=== PATIENT | female | born 1990 | race Caucasian/White ===

== ENCOUNTER → 2019-03-09 14:10 | Outpatient (CLI) | payer BC, SELFPAY ==
--- NOTE | 2019-03-09 14:16 | US_ITS ---
US thyroid HISTORY: ITS.REASON: THYROID NODULE ORDERING PHYSICIAN: Eulalia Mckeon APRN PATIENT AGE: 28 years Comparison: None FINDINGS: A 4.2 x 1.1 0.6 cm. The left lobe is 4.1 x 1.2 x 1.4 cm. Isthmus is unremarkable. Homogeneous echogenicity is present in the right lobe without obvious nodule. On the left there is a 4 mm cyst in the upper pole. There is a complex mixed hypo and isoechoic nodule in the lower pole at 13 x 13 mm.. IMPRESSION: 13 mm complex nodule in the lower pole on the left. Recommend 6 month follow-up to confirm stability
== END ==
PROVIDERS: PCP Nurse Practitioner Family; Visit Provider Nurse Practitioner Family
DX: E04.1 Nontoxic single thyroid nodule (principal)
CPT/HCPCS: 76536

== ENCOUNTER 2019-06-21 17:07 | Outpatient (CLI) | payer BC, SELFPAY ==
--- NOTE | 2019-06-21 17:12 | PC.NURSE ---
HERE FOR TB SKIN TEST
[2019-06-21 17:17] VITALS: BMI 40.6
== END 2019-06-21 17:19 | disposition home or self-care (01) ==
LOC: UTC.OUT 17:11
PROVIDERS: PCP Nurse Practitioner; Visit Provider Nurse Practitioner Family
DX: Z23 Encounter for immunization (principal)
CPT/HCPCS: 86580

== ENCOUNTER → 2019-09-13 14:34 | Outpatient (CLI) | payer BC, SELFPAY ==
--- NOTE | 2019-09-13 14:38 | US_ITS ---
PROCEDURE: US THYROID CLINICAL INDICATION: THYROID NODULE Follow-up thyroid nodules COMPARISON: THY US thyroid from 03/09/2019 FINDINGS: Right lobe: 4.0 x 1.4 x 1.6 cm. Homogeneous echogenicity. No discrete nodule Left lobe: 4.7 x 1.1 x 1.5 cm. 5 mm cyst upper pole There are 2 stable mixed nodules in the lower pole 6 mm each. Additional 5 mm mixed nodule lower pole. No suspicious nodules evident Isthmus: Additional findings: IMPRESSION: Stable left-sided thyroid nodules. One year follow-up suggested Dictated by: Corbin Amezcua MD 09/13/2019 16:03 Electronically signed by Corbin Amezcua MD in [place] 09/13/2019 16:03
== END ==
PROVIDERS: PCP Nurse Practitioner; Visit Provider Nurse Practitioner Family
DX: E04.1 Nontoxic single thyroid nodule (principal)
CPT/HCPCS: 76536

== ENCOUNTER → 2020-07-08 08:29 | Outpatient (CLI) | payer SELFPAY ==
[2020-07-09 14:10] LABS: Progesterone <0.1 ng/mL (.)
== END ==
PROVIDERS: Visit Provider Obstetrics & Gynecology
DX: N97.0 Female infertility associated with anovulation (principal)
CPT/HCPCS: 36415; 84144

== ENCOUNTER 2020-11-24 16:24 | Emergency (ER) | payer OTHER, SELFPAY ==
[2020-11-24 17:30] VITALS: BP 156/119; PULSE 90; RESP 20; TEMP 37; O2SAT 100; BMI 44.1
--- NOTE | 2020-11-24 17:46 | HMH.EDUTC ---
[facility] [place]: Vaccine reaction Qualifiers: Encounter type: initial encounter Qualified Code(s): T50.Z95A - Adverse effect of other vaccines and biological substances, initial encounter Disposition: Home, Self-Care Condition on Discharge: Good Instructions: What Are Vaccines? Additional Instructions: if redness develops outside area return follow up with pcp this week watch for fever Apply cool cloth Referrals: Alma Delia Rios APRN [Primary Care Provider] - Time of Disposition: 18:21 Medical Decision Making - Farooq Inquiry Pt receiving controlled substance: No Vital Signs: 11/24/20 17:30 Temperature 98.6 F Temperature Source Oral Pulse Rate [Right Brachial] 90 Respiratory Rate 20 Blood Pressure [Right Arm] 156/119 H Blood Pressure Mean [Right Arm] 131 Blood Pressure Source [Right Arm] Automatic Cuff Blood Pressure Position [Right Arm] Sitting 02 Sat by Pulse Oximetry 100 Oxygen Delivery Method Room Air [facility] [place] - General Chief complaint: Ur[facility] Stated complaint: Contact Reaction to COVID Vaccine Time Seen by Provider: 11/24/20 17:46 Mode of Arrival: Ambulatory Source of Information: Patient Limitations: No Limitations Description of Symptoms (Recalled from Triage Doc. by RN): PATIENT C/O REDNESS, SWELLING, WARMTH AND TENDERNESS TO LEFT DELTOID WHERE SHE RECEIVED COVID VACCINE ON 11/13. DENIES ANY OTHER SYMPTOMS HEENT Symptoms (Recalled from RN notes): No Resp Symptoms (Recalled from RN notes): No Skin Symptoms (Recalled from RN notes): Yes MS Symptoms (Recalled from RN notes): No Functional Status (Recalled from RN notes): WNL - History of Present Illness Provider Complaint: 30 yr old female presents for redness and warmth to covid vaccine injection site. - Related Data Allergies Allergy/AdvReac Type Severity Reaction Status Date / Time codeine [CODEINE] Allergy Unknown Verified 06/20/20 15:34 - Worker's Comp Is this a Worker's Comp case?: No [facility] History - Hepatitis A Screen Drug use history?: No High risk sexual behaviors?: No History of sexually transmitted infection?: No Currently employed?: No Childcare worker?: No Do you have indoor plumbing?: Yes Do you have electricity?: Yes Attestation statement:: This patient has been screened for Hepatitis A risk factors. I have reviewed the patient's past medical history: Yes Medical History: Reports:: Kidney Stones Denies:: Cancer, Diabetes Mellitus Type 1, Diabetes Mellitus Type 2, Hypertension, MRSA Other Medical History: Reports: Other Comment: nodules on thyroid Other Surgeries: Yes: Other Amputation: No Fractures: No Comment: cyst left ovary-2007 - Social History Smoking Status: Never smoker Alcohol Intake: never Alcohol Intake Frequency:: holidays/special occasions only Substance Use Type: denies use Occupational Status: other Family Hx:: Cancer (mom stage 4 breast cancer), Diabetes (father), Thyroid Disorder ROS Obtained: Yes Systems reviewed as appropriate & no additional complaints - Constitutional Constitutional: Reports system reviewed and no additional complaints, except as docu, Denies fever(s) - Eyes Eyes: Reports system reviewed and no additional complaints, except as docu, Denies change in vision - ENT Ears, Nose, Mouth, and Throat: Reports system reviewed and no additional complaints, except as docu, Denies sore throat - Cardiovascular Cardiovascular: Reports system reviewed and no additional complaints, except as docu, Denies chest pain - Respiratory Respiratory: Yes system reviewed and no additional complaints, except as docu, No wheezing - Gastrointestinal Gastrointestingal: Reports: system reviewed and no additional complaints, except as docu. Denies: nausea - Genitourinary Female Genitourinary: Reports system reviewed and no additional complaints, except as docu - Musculoskeletal Musculoskeletal: Reports system reviewed and no additional complaints
[2020-11-24 18:41] VITALS: BP 156/119; PULSE 90; RESP 20; TEMP 37; O2SAT 100
== END 2020-11-24 18:43 | disposition home or self-care (01) ==
PROVIDERS: Emergency Provider Nurse Practitioner Family; PCP Nurse Practitioner
DX: T50.Z95A Adverse effect of other vaccines and biological substances, initial encounter (principal)
CPT/HCPCS: 99202; G0463

== ENCOUNTER → 2021-02-14 13:00 | Outpatient (CLI) | payer OTHER, SELFPAY ==
[2021-02-16 13:12] LABS: Progesterone 1.7 ng/mL (.)
== END ==
PROVIDERS: Visit Provider Specialist
DX: N97.0 Female infertility associated with anovulation (principal)
CPT/HCPCS: 36415; 84144

== ENCOUNTER 2021-02-27 17:10 | Emergency (ER) | payer OTHER, SELFPAY ==
[2021-02-27 17:10] VITALS: BP 140/91; PULSE 91; RESP 19; TEMP 37; O2SAT 100; BMI 44.1
--- NOTE | 2021-02-27 17:43 | HMH.EDUTC ---
[facility] [place]ression: Low back pain Qualifiers: Chronicity: unspecified Back pain laterality: midline Sciatica presence: without sciatica Qualified Code(s): M54.5 - Low back pain Disposition: Home, Self-Care Condition on Discharge: Good Instructions: Low Back Pain, DI for Low Back Pain, Cyclobenzaprine, Etodolac, DI for Muscle Spasm Additional Instructions: *Etodolac lynnette 6 hours with meal as needed for pain/inflammation *Remember you had a Toradol shot in the clinic today, which is similar to Etodolac so do not start Etodalac until tomorrow 02/28/2021 *Not additional anti-inflammatory like Ibuprofen, motrin, aleve, advil with the above amount of Etodolac You can still take Tylenol every 4 hours as needed if you need something else for pain *Ice 20 minutes every 2 hours for the first 48 hours after the initial injury followed by moist heat every 20 minutes 3-4 times a day to affected area *Muscle relaxer every 8 hours as needed for muscle spasms but remember, it WILL cause drowsiness You cannot take it and drive, operate machinery or care for small children. *Keep this area active, no movement leads to more stiffness, However take it easy and avoid heavy lifting pushing or pulling *Follow up with you family doctor if no improvement for further treatment Return if needed Straight to ER if any life threatening symptoms Prescriptions: Etodolac [Etodolac 200mg Cap*] 200 mg PO Q6H PRN #20 cap PRN Reason: Moderate Pain Transmission Status: Received by [id number] Cyclobenzaprine HCl [Flexeril 10mg tablet] 10 mg PO TID PRN #15 tab PRN Reason: Muscle Spasm Transmission Status: Received by [id number] Referrals: Eulalia Mckeon APRN [Primary Care Provider] - As needed Time of Disposition: 18:01 Medical Decision Making - Farooq Inquiry Pt receiving controlled substance: No Farooq was queried for this patient: No Vital Signs: 02/27/21 17:10 02/27/21 18:01 Temperature 98.6 F 98.6 F Temperature Source Oral Pulse Rate 91 H Pulse Rate [Right Brachial] 91 H Respiratory Rate 19 19 Blood Pressure 140/91 H Blood Pressure [Right Arm] 140/91 H Blood Pressure Mean [Right Arm] 107 Blood Pressure Source [Right Arm] Automatic Cuff Blood Pressure Position [Right Arm] Sitting 02 Sat by Pulse Oximetry 100 Oxygen Delivery Method Room Air - Lab Data Lab results reviewed: Yes: I reviewed the patient's lab results. Orders (Tests/Meds): ED MEDICATIONS Discontinued Medications Generic Name Dose Route Start Last Admin Trade Name Romario PRN Reason Stop Dose Admin Ketorolac Tromethamine 60 mg 02/27/21 17:54 02/27/21 18:00 Ketorolac 60mg/2ml Vial IM 02/27/21 17:55 60 mg ONCE ONE Administration Methylprednisolone Sodium Succinate 125 mg 02/27/21 17:54 02/27/21 18:00 Methylprednisolone Sod Succ 125mg Vial IM 02/27/21 17:55 125 mg ONCE ONE Administration Medical Decision Narrative: Patient reports injections helped with pain patient dc'd [place] [facility] [place] - General Stated complaint: back pain Time Seen by Provider: 02/27/21 17:43 Mode of Arrival: Ambulatory Source of Information: Patient Limitations: No Limitations Description of Symptoms (Recalled from Triage Doc. by RN): PATIENT C/O BILATERAL LOWER BACK PAIN THAT RADIATES AROUND TO SIDES SINCE YESTERDAY HEENT Symptoms (Recalled from RN notes): No Resp Symptoms (Recalled from RN notes): No Skin Symptoms (Recalled from RN notes): No MS Symptoms (Recalled from RN notes): Yes Functional Status (Recalled from RN notes): WNL - History of Present Illness Provider Complaint: Patient states that she has back pain on and off States that she was helping her [employer] bathroom and she bent over to help him picker feeder toilet and as she was standing up she felt something pull in her lower back State that ever since she has been having muscle spasm like pain in her lower back that goes across her back State that pain
[2021-02-27 18:01] VITALS: BP 140/91; PULSE 91; RESP 19; TEMP 37; O2SAT 100
[2021-02-27 20:28] LABS: UTC Pregnancy Test, Urine Negative (Negative)
== END 2021-02-27 18:13 | disposition home or self-care (01) ==
PROVIDERS: Emergency Provider Nurse Practitioner; PCP Nurse Practitioner Family
DX: M62.830 Muscle spasm of back (principal); M54.5 Low back pain; X50.0XXA Overexertion from strenuous movement or load, initial encounter; Z88.5 Allergy status to narcotic agent
CPT/HCPCS: 81025; 96372; 99202; G0463

== ENCOUNTER → 2021-04-14 10:05 | Outpatient (CLI) | payer OTHER, SELFPAY ==
[2021-04-17 05:51] LABS: Progesterone 15.8 ng/mL (.)
== END ==
PROVIDERS: Visit Provider Specialist
DX: N97.0 Female infertility associated with anovulation (principal)
CPT/HCPCS: 84144

== ENCOUNTER → 2021-05-13 12:41 | Outpatient (CLI) | payer OTHER, SELFPAY ==
[2021-05-14 09:13] LABS: Progesterone 17.2 ng/mL (.)
== END ==
PROVIDERS: Visit Provider Specialist
DX: N97.0 Female infertility associated with anovulation (principal)
CPT/HCPCS: 36415; 84144

== ENCOUNTER 2021-06-05 15:10 | Observation (INO) | payer OTHER, SELFPAY ==
[2021-06-05 15:12] VITALS: BP 132/67; PULSE 86; RESP 16; TEMP 37; O2SAT 98; BMI 45.4
--- NOTE | 2021-06-05 15:24 | CT_ITS ---
PROCEDURE: CT ABDOMEN PELVIS WO CON CLINICAL INDICATION: kidney stone protocol Left flank pain with hematuria COMPARISON: No exams were available for comparison TECHNIQUE: Axial images obtained with sagittal and coronal reformats. All CT scans at the facility use one or more dose reduction, viz: automated exposure control, ma/kV adjustment per patient size (including targeted exams where dose is matched to indication, i.e. head), or iterative reconstruction technique. FINDINGS: LOWER THORAX: No acute finding ABDOMEN & PELVIS: The liver, gallbladder, spleen, pancreas, and adrenal glands have an unremarkable appearance. A 10 x 5 mm stone is present in the left ureteropelvic junction with mild left-sided hydronephrosis. This could even be 2 small stones together the largest at 5 mm. No distal ureteral calculi are evident. There is a 3 mm stone in the mid polar region of the left kidney. No evidence of appendicitis. Small umbilical hernia containing fat. No intestinal obstruction or free air. There is soft tissue fullness in the right adnexal region suggesting a prominent ovary at approximately 3.9 x 2.9 cm. Small amount fluid is present in the cul-de-sac. No acute bony anomalies IMPRESSION: 10 x 5 mm left ureteropelvic junction stone or stones with mild left-sided hydronephrosis and left nephrolithiasis. Dictated by: Corbin Amezcua MD 06/05/2021 16:14 Corbin Amezcua MD in [place] 06/05/2021 16:14
[2021-06-05 15:27] LABS: Microscopic, Urine URINE MICROSCOPIC (MICROSCOPIC)
[2021-06-05 15:31] LABS: Appearance,Urine TURBID (Clear); Blood, Urine 3+ (Negative); Color,Urine RED (Yellow); Glucose,Urine (UA) Negative (Negative); Ketones,Urine TRACE (Negative); Leukocyte Esterase,Urine TRACE (Negative); Nitrate,Urine POSITIVE (Negative); PH,Urine 6.5 (5.0-8.5); Protein,Urine 3+ (Negative); Specific Gravity, Urine >= 1.030 (1.005-1.030)
[2021-06-05 15:32] LABS: Urine Pregnancy, HCG Qual. Negative (Negative)
[2021-06-05 15:35] LABS: Basophils # 0.1 K/mm3 (0-0.2); Basophils % 0.5 % (0.1-2.0); Eosinophils # 0.1 K/mm3 (0.0-0.4); Eosinophils % 0.9 % (0.1-12.0); Hematocrit 33.3 % (37.0-47.0); Hemoglobin 11.1 g/dL (12.2-16.2); Lymphocytes # 2.1 K/mm3 (0.7-4.5); Mean Corpuscular HGB Conc 33.4 g/dL (31.8-35.4); Mean Corpuscular Volume 71.9 fl (81-99); Mean Platelet Volume 7.8 fl (7.4-10.4); Monocytes # 0.4 K/mm3 (0.1-1.0); Monocytes % 4.4 % (1.7-9.3); Neutrophils # 7.4 K/mm3 (1.8-7.8); Neutrophils % 73.2 % (37.0-80.0); Platelet Count 356 K/mm3 (142-424); Red Blood Count 4.63 M/mm3 (4.20-5.40); Red Cell Distribution Width 16.5 % (11.5-17.5); White Blood Count 10.1 K/mm3 (4.8-10.8)
[2021-06-05 15:38] LABS: Bilirubin,Urine 1+ (Negative)
[2021-06-05 15:42] LABS: Chloride 106 mmol/L (98-107); Potassium 3.6 mmoL/L (3.5-5.1); Sodium 138 mmol/L (136-145)
[2021-06-05 15:45] LABS: Anion Gap 11.6 mEq/L (5-15); Blood Urea Nitrogen 15 mg/dl (7-17); Calcium 8.8 mg/dl (8.4-10.2); Carbon Dioxide 24 mmol/L (22.0-30.0); Creatinine Clearance Estimated 135 mL/min (50-200); Estimated Glomerular Filt Rate 118 ml/min (>60); GFR (African American) 143 ML/MIN (>60); Glucose 100 mg/dl (74-100)
[2021-06-05 15:51] LABS: Bacteria,Urine 1+ /lpf; RBC,Urine 20-50 #/hpf (0-3); Squamous Epithelial Cell,Urine Occasional #/hpf (0-5)
[2021-06-05 16:09] LABS: HCG Qualitative, Serum Negative (Negative)
--- NOTE | 2021-06-05 16:31 | HMH.EDGENADL ---
ED Disposition Clinical Impression: Ureteral stone Disposition: Admitted as Observation Condition on Discharge: Good Instructions: DI for Low Back Pain Referrals: Eulalia Mckeon APRN [Primary Care Provider] - - Critical Care Critical Care Time: No Attestation: On 06/05/21, the high probability of a clinically significant, sudden or life threatening deterioration of the following system(s) required my full and direct attention, intervention and personal management. The time I documented below is in addition to time spent performing reported procedures but includes the following listed in this critical care notation. Medical Decision Making - Medical Records Medical records reviewed: Yes: I reviewed the patient's medical records. - Farooq Inquiry Pt receiving controlled substance: No Vital Signs: 06/05/21 15:12 Temperature 98.6 F Temperature Source Oral Pulse Rate [Radial] 86 Respiratory Rate 16 Blood Pressure [Right Arm] 132/67 Blood Pressure Mean [Right Arm] 88 Blood Pressure Position [Right Arm] Sitting 02 Sat by Pulse Oximetry 98 Oxygen Delivery Method Room Air - Lab Data Lab Results 06/05/21 15:20: Urine Color Red, Urine Appearance Turbid, Urine pH 6.5, Ur Specific [place] >= 1.030, Urine Protein 3+, Urine Glucose (UA) Negative, Urine Ketones Trace, Urine Blood 3+, Urine Nitrate Positive, Urine Bilirubin 1+ A, Urine Urobilinogen 1.0, Ur Leukocyte Esterase Trace, Urine RBC 20-50, Urine WBC None, Ur Squamous Epith Cells Occasional, Urine Bacteria 1+ 06/05/21 15:20: Urine HCG, Qual Negative 06/05/21 15:26: WBC 10.1, RBC 4.63, Hgb 11.1 L, Hct 33.3 L, MCV 71.9 L, MCH 24.0 L, MCHC 33.4, RDW 16.5, Plt Count 356, MPV 7.8, Neut % (Auto) 73.2, Lymph % (Auto) 21.0, [place] % (Auto) 4.4, Eos % (Auto) 0.9, Baso % (Auto) 0.5, Neut # (Auto) 7.4, Lymph # (Auto) 2.1, [place] # (Auto) 0.4, Eos # (Auto) 0.1, Baso # (Auto) 0.1 06/05/21 15:26: Sodium 138, Potassium 3.6, Chloride 106, Carbon Dioxide 24, Anion Gap 11.6, BUN 15, Creatinine 0.60, Estimated Creat Clear 135, Estimated GFR 118, Est GFR ( Amer) 143, Glucose 100, Calcium 8.8 06/05/21 15:26: Serum HCG, Qual Negative Result diagrams: 06/05/21 15:26 06/05/21 15:26 Orders (Tests/Meds): ED MEDICATIONS Generic Name Dose Route Start Last Admin Trade Name Freq PRN Reason Stop Dose Admin Ceftriaxone Sodium 1 gm/ 50 mls @ 100 mls/hr 06/05/21 16:27 Sodium Chloride IV 06/05/21 16:56 ONCE ONE Protocol Discontinued Medications Generic Name Dose Route Start Last Admin Trade Name Freq PRN Reason Stop Dose Admin Sodium Chloride 1,000 mls @ 999 mls/hr 06/05/21 15:30 06/05/21 15:45 Sod Chlor 0.9% 1000ml Bag IV 06/05/21 16:30 999 mls/hr .Q1H1M ANTONIO Administration Ketorolac Tromethamine 30 mg 06/05/21 15:24 06/05/21 15:45 Ketorolac 30mg/Ml Vial IV 06/05/21 15:25 30 mg ONCE ONE Administration Morphine Sulfate 4 mg 06/05/21 16:29 Morphine 4mg/Ml Syringe IV 06/05/21 16:30 ONCE ONE Ondansetron HCl 4 mg 06/05/21 15:24 06/05/21 15:45 Ondansetron 4mg Odt SL 06/05/21 15:25 4 mg ONCE ONE Administration ORDERS Category Date Time Status Urine Culture Stat Micro 06/05/21 16:27 Ordered Medical Decision Narrative: 31-year-old female presents with sudden onset severe left flank pain most consistent with ureter stone. Vital signs stable she did not have acute abdomen on exam no concern for sepsis. CT abdomen pelvis obtained that shows 10 x 5 mm stone at the UPJ. I discussed the case with Dr. Fair and he recommends admission for n.p.o. at midnight. She does have nitrite positive urine, no other symptoms of urinary tract infection urine culture obtained and did give a dose of ceftriaxone. Plan to admit to Dr. Dias. General Adult HPI - General Chief complaint: Back Pain/Injury Stated complaint: Back pain Nausa,vomiting Time Seen by Provider: 06/05/21 15:15 Mode of Arrival: Ambulatory Limita
--- NOTE | 2021-06-05 16:32 | PC.NURSE ---
DR JERONIMO PAGED FOR POSSIBLE ADMISSION
--- NOTE | 2021-06-05 16:46 | PC.NURSE ---
Dr Thapa speaking with Dr Granado.
[2021-06-05 18:00] VITALS: O2SAT 98
[2021-06-05 18:06] LABS: Coronavirus 19, PCR Not Detected (NotDetected); Influenza A, PCR Not Detected (NotDetected); Influenza B, PCR Not Detected (NotDetected)
--- NOTE | 2021-06-05 18:47 | PC.NURSE ---
Report given to Candy by Dillon BUTTS
[2021-06-05 18:58] VITALS: BP 139/112; PULSE 107; RESP 16; TEMP 36.6; O2SAT 99; BMI 46.8
[2021-06-05 19:01] VITALS: RESP 18
[2021-06-05 19:13] VITALS: BP 150/80; PULSE 86; RESP 16; TEMP 36.6; O2SAT 99
[2021-06-05 20:15] VITALS: O2SAT 99
[2021-06-06] VITALS (17 sets, daily range): BP systolic 119–153; BP diastolic 73–92; PULSE 75–93; RESP 14–18; TEMP 36.6–36.9; O2SAT 93–99; BMI 46.9
--- NOTE | 2021-06-06 00:36 | PC.NURSE ---
She is A&Ox3. She has received pain medication for left flank pain that occasionally radiates to her abdomen. Received PRN med for nausea. No vomiting. She is straining her urine. She reports that her urine is dasia colored and cloudy. She is NPO.
--- NOTE | 2021-06-06 07:02 | HMH.HP ---
*Admission Date: 06/05/21 *Chief complaint: Left flank pain *History of present illness: 31-year-old female with history of 2 prior kidney stones presented to the emergency department with acute onset of left flank pain. Patient states she thought she pulled a muscle. Pain was quite severe and unrelenting. Patient was found to have a 10 x 5 mm ureteral stone at the left UVJ showing signs of obstructive uropathy. Patient was admitted for pain control and urologic consultation. This morning she continues to have flank pain and has recently received Toradol. [facility] History I have reviewed the patient's past medical history: Yes Medical History: Reports:: Kidney Stones Denies:: Cancer, Diabetes Mellitus Type 1, Diabetes Mellitus Type 2, Hypertension, MRSA *Have you ever received a pneumonia vaccine?: No *Have you received a flu vaccine this season?: Yes Other Medical History: Reports: Other Other Surgeries: Yes: Other Amputation: No Fractures: No - *Social History Last grade of school completed: Advanced degree Smoking Status: Never smoker Alcohol Intake: current Alcohol Intake Frequency:: holidays/special occasions only Substance Use Type: denies use *Occupational Status:: employed Housing: house Household Members: significant other *Travel in the last 8 weeks: None Family Hx:: Asthma, Cancer, Diabetes, Hyperlipidemia, Hypertension Review of Systems - Review of Systems Review of systems:: pertinent systems reviewed and negative unless documented below - *Neurologic Denies dizziness, Denies headache(s) Meds Home Medications Medication Instructions Recorded Confirmed Type Sertraline HCl [Zoloft] 100 mg PO DAILY 06/05/21 06/05/21 History Allergies Allergy/AdvReac Type Severity Reaction Status Date / Time codeine [CODEINE] Allergy Unknown Verified 05/30/21 11:27 Exam Vital signs and Labs for Last 24 Hours: Temp Pulse Resp BP Pulse Ox 97.9 F 85 18 123/79 99 06/06/21 04:00 06/06/21 04:00 06/06/21 04:00 06/06/21 04:00 06/06/21 04:00 Laboratory Results - last 24 hr 06/05/21 15:20: Urine Color Red, Urine Appearance Turbid, Urine pH 6.5, Ur Specific [place] >= 1.030, Urine Protein 3+, Urine Glucose (UA) Negative, Urine Ketones Trace, Urine Blood 3+, Urine Nitrate Positive, Urine Bilirubin 1+ A, Urine Urobilinogen 1.0, Ur Leukocyte Esterase Trace, Urine RBC 20-50, Urine WBC None, Ur Squamous Epith Cells Occasional, Urine Bacteria 1+ 06/05/21 15:20: Urine HCG, Qual Negative 06/05/21 15:26: WBC 10.1, RBC 4.63, Hgb 11.1 L, Hct 33.3 L, MCV 71.9 L, MCH 24.0 L, MCHC 33.4, RDW 16.5, Plt Count 356, MPV 7.8, Neut % (Auto) 73.2, Lymph % (Auto) 21.0, [place] % (Auto) 4.4, Eos % (Auto) 0.9, Baso % (Auto) 0.5, Neut # (Auto) 7.4, Lymph # (Auto) 2.1, [place] # (Auto) 0.4, Eos # (Auto) 0.1, Baso # (Auto) 0.1 06/05/21 15:26: Sodium 138, Potassium 3.6, Chloride 106, Carbon Dioxide 24, Anion Gap 11.6, BUN 15, Creatinine 0.60, Estimated Creat Clear 135, Estimated GFR 118, Est GFR ( Amer) 143, Glucose 100, Calcium 8.8 06/05/21 15:26: Serum HCG, Qual Negative 06/05/21 16:50: SARS-CoV-2 (PCR) Not detected, Influenza A Untype (PCR) Not detected, Influenza Type B (PCR) Not detected I & O for Last 24 hours: Intake & Output 06/03/21 06/04/21 06/05/21 06/06/21 11:59 11:59 11:59 11:59 Intake Total 808 / 808 Balance 808 / 808 Weight 299 lb 5 oz - Constitutional no acute distress - *Routine HEENT Exam Head: Present: normocephalic Eye: Present: EOMI, PERRL ENT: Present: mucous membranes moist - *Routine Neck Exam Present: supple. Absent: lymphadenopathy - *Routine Respiratory Exam Present: CTA bilaterally - *Routine Cardiovascular Exam Present: RRR - *Routine Abdominal Exam Present: soft, normoactive bowel sounds. Absent: tenderness - *Routine Rectal Exam Rectal:: deferred - *Routine Genitalia Exam Genitalia:: deferred - *Routine Extremities Exam Absent: cyanosis, clubbing, edema - R
[2021-06-06 07:08] LABS: Anion Gap 10.7 mEq/L (5-15); Blood Urea Nitrogen 11 mg/dl (7-17); Calcium 8.4 mg/dl (8.4-10.2); Carbon Dioxide 24 mmol/L (22.0-30.0); Chloride 108 mmol/L (98-107); Creatinine Clearance Estimated 135 mL/min (50-200); Estimated Glomerular Filt Rate 118 ml/min (>60); GFR (African American) 143 ML/MIN (>60); Glucose 90 mg/dl (74-100); Magnesium 1.8 mg/dl (1.6-2.3); Phosphorous 3.3 mg/dl (2.5-4.5); Potassium 3.7 mmoL/L (3.5-5.1); Sodium 139 mmol/L (136-145)
[2021-06-06 07:13] LABS: Basophils % 0.3 % (0.1-2.0); Eosinophils # 0.1 K/mm3 (0.0-0.4); Hematocrit 31.6 % (37.0-47.0); Hemoglobin 10.3 g/dL (12.2-16.2); Lymphocytes # 2.1 K/mm3 (0.7-4.5); Mean Corpuscular HGB Conc 32.6 g/dL (31.8-35.4); Mean Corpuscular Volume 73.5 fl (81-99); Mean Platelet Volume 7.7 fl (7.4-10.4); Monocytes # 0.4 K/mm3 (0.1-1.0); Monocytes % 5.3 % (1.7-9.3); Neutrophils # 5.5 K/mm3 (1.8-7.8); Neutrophils % 67.4 % (37.0-80.0); Platelet Count 339 K/mm3 (142-424); Red Cell Distribution Width 16.9 % (11.5-17.5); White Blood Count 8.1 K/mm3 (4.8-10.8)
--- NOTE | 2021-06-06 07:15 | HMH.PHAVTE ---
[facility] Pharmacy VTE Monitoring - Patient Demographics Admission date: 06/05/21 Report Date: 06/06/21 Time: 07:15 Allergies/Adverse Reactions: Patient Allergies codeine [CODEINE] Allergy (Unknown, Verified 05/30/21 11:27) Height: 1.7 m Weight: 135.766 kg Patient Problems: Current Active Problems Ureteral stone (Acute) Left ureteral stone (Acute) - VTE Risk Labs: VTE Related Lab Results Hgb 10.3 g/dL (12.2-16.2) L 06/06/21 06:07 Hct 31.6 % (37.0-47.0) L 06/06/21 06:07 Plt Count 339 K/mm3 (142-424) 06/06/21 06:07 BUN 11 mg/dl (7-17) D 06/06/21 06:07 Creatinine 0.60 mg/dl (0.52-1.04) 06/06/21 06:07 Estimated Creat Clear 135 mL/min (50-200) 06/06/21 06:07 Was VTE Risk Assessment Performed: Yes VTE Score: 1 VTE Risk Level: Very Low Risk - Prophylaxis VTE Prophylaxis Ordered?: Yes Types of VTE Prophylaxis: TEDS Knee High Location of Applied Device: Bilateral Lower Extremeties
--- NOTE | 2021-06-06 07:16 | HMH.PHAINT ---
MEDICATION RECONCILIATION COMPLETED ON PATIENT USING EXTERNAL FILL HISTORY FROM PHARMACY. -NASIMA SARMIENTO, PARMINDERD
--- NOTE | 2021-06-06 07:44 | XR_ITS ---
PROCEDURE: XR KUB CLINICAL INDICATION: kidney stones COMPARISON: CT CT ABDOMEN PELVIS WO CON from 06/05/2021 FINDINGS: 5 mm calcific density is present in the region of the proximal left ureter/UPJ at the L2-L3 level. A 3 mm stone is present overlying the upper pole of the left kidney. No distal ureteral calculi apparent. IMPRESSION: Suspect persistent 5 mm left UPJ stone with left nephrolithiasis. Dictated by: Corbin Amezcua MD 06/06/2021 08:28 Corbin Amezcua MD in [place] 06/06/2021 08:28
--- NOTE | 2021-06-06 09:20 | HMH.CONS ---
*Admission Date: 06/05/21 *Reason for consult:: 1 cm left UPJ stone *History of present illness: Patient is a 31-year-old white female with a history of nephrolithiasis. She states several days of left-sided discomfort but yesterday began having more flank pain associated with nausea vomiting. She presented to the emergency room where a CT scan revealed a 10 x 5 mm stone at the left UPJ. Her pain was brought under control in the emergency room and she was admitted for observation. She did rather well overnight but began having some more left flank pain this morning. KUB today shows the stone is still at the left UPJ. She is afebrile. [facility] History Medical History: Reports:: Kidney Stones Denies:: Cancer, Diabetes Mellitus Type 1, Diabetes Mellitus Type 2, Hypertension, MRSA *Have you ever received a pneumonia vaccine?: No *Have you received a flu vaccine this season?: Yes Other Medical History: Reports: Other Other Surgeries: Yes: Other Amputation: No Fractures: No - *Social History Last grade of school completed: Advanced degree Smoking Status: Never smoker Alcohol Intake: current Alcohol Intake Frequency:: holidays/special occasions only Substance Use Type: denies use *Occupational Status:: employed Housing: house Household Members: significant other *Travel in the last 8 weeks: None Family Hx:: Asthma, Cancer, Diabetes, Hyperlipidemia, Hypertension Review of Systems - Review of Systems Review of systems:: pertinent systems reviewed and negative unless documented below - *Neurologic Denies dizziness, Denies headache(s) Meds Home Medications Medication Instructions Recorded Confirmed Type Sertraline HCl [Zoloft] 100 mg PO HS 06/05/21 06/06/21 History Allergies Allergy/AdvReac Type Severity Reaction Status Date / Time codeine [CODEINE] Allergy Unknown Verified 05/30/21 11:27 Exam Vital signs and Labs for Last 24 Hours: Temp Pulse Resp BP Pulse Ox 98.2 F 93 H 18 130/86 96 06/06/21 07:49 06/06/21 07:49 06/06/21 07:49 06/06/21 07:49 06/06/21 07:49 Laboratory Results - last 24 hr 06/05/21 15:20: Urine Color Red, Urine Appearance Turbid, Urine pH 6.5, Ur Specific [place] >= 1.030, Urine Protein 3+, Urine Glucose (UA) Negative, Urine Ketones Trace, Urine Blood 3+, Urine Nitrate Positive, Urine Bilirubin 1+ A, Urine Urobilinogen 1.0, Ur Leukocyte Esterase Trace, Urine RBC 20-50, Urine WBC None, Ur Squamous Epith Cells Occasional, Urine Bacteria 1+ 06/05/21 15:20: Urine HCG, Qual Negative 06/05/21 15:26: WBC 10.1, RBC 4.63, Hgb 11.1 L, Hct 33.3 L, MCV 71.9 L, MCH 24.0 L, MCHC 33.4, RDW 16.5, Plt Count 356, MPV 7.8, Neut % (Auto) 73.2, Lymph % (Auto) 21.0, [place] % (Auto) 4.4, Eos % (Auto) 0.9, Baso % (Auto) 0.5, Neut # (Auto) 7.4, Lymph # (Auto) 2.1, [place] # (Auto) 0.4, Eos # (Auto) 0.1, Baso # (Auto) 0.1 06/05/21 15:26: Sodium 138, Potassium 3.6, Chloride 106, Carbon Dioxide 24, Anion Gap 11.6, BUN 15, Creatinine 0.60, Estimated Creat Clear 135, Estimated GFR 118, Est GFR ( Amer) 143, Glucose 100, Calcium 8.8 06/05/21 15:26: Serum HCG, Qual Negative 06/05/21 16:50: SARS-CoV-2 (PCR) Not detected, Influenza A Untype (PCR) Not detected, Influenza Type B (PCR) Not detected 06/06/21 06:07: WBC 8.1, RBC 4.30, Hgb 10.3 L, Hct 31.6 L, MCV 73.5 L, MCH 24.0 L, MCHC 32.6, RDW 16.9, Plt Count 339, MPV 7.7, Neut % (Auto) 67.4, Lymph % (Auto) 26.0, [place] % (Auto) 5.3, Eos % (Auto) 1.0, Baso % (Auto) 0.3, Neut # (Auto) 5.5, Lymph # (Auto) 2.1, [place] # (Auto) 0.4, Eos # (Auto) 0.1, Baso # (Auto) 0.0 06/06/21 06:07: Sodium 139, Potassium 3.7, Chloride 108 H, Carbon Dioxide 24, Anion Gap 10.7, BUN 11 D, Creatinine 0.60, Estimated Creat Clear 135, Estimated GFR 118, Est GFR ( Amer) 143, Glucose 90, Calcium 8.4, Phosphorus 3.3, Magnesium 1.8 I & O for Last 24 hours: Intake & Output 06/03/21 06/04/21 06/05/21 06/06/21 23:59 23:59 23:59 23:59 Intake Total 808 / 808 Balance 808 / 808 Weight 135.766 k
--- NOTE | 2021-06-06 10:30 | XR_ITS ---
PROCEDURE: XR KUB CLINICAL INDICATION: LEFT STENT PLACEMENT, OR COMPARISON: CT CT ABDOMEN PELVIS WO CON from 06/05/2021 FINDINGS: Fluoroscopy time: 1 minutes and 9 seconds. Left ureteral stent is in place with the proximal aspect at the L1-L2 level in the distal aspect not covered on these images. IMPRESSION: Status post left ureteral stent placement with fluoro guidance Dictated by: Corbin Amezcua MD 06/06/2021 14:37 Corbin Amezcua MD in [place] 06/06/2021 14:37
--- NOTE | 2021-06-06 10:38 | HMH.ANESCL ---
[facility] Anesthesia Checklist - Patient Identification Patient Identification: Arm Band - Structural Data Admitted From: Inpatient Planned Operative Procedure/s: Cystoscopy with stent placement Consent for Planned Operative Procedure(s) Verified: Yes - NPO Status Verified Time NPO: 00:00 - Airway Assessment C-Spine Mobility Assessed: Yes TMJ Mobility Assessed: Yes Dentition: Good Dentition - Neurological Assessment Level of Consciousness: Awake Hx Seizures: No Numbness or tingling in extremities: No - Anesthesia Plan Anesthesia Risk discussed: Yes Anesthesia Plan: Verified ASA Class: II Anesthesia Type: General [facility] History I have reviewed the patient's past medical history: Yes Medical History: Reports:: Depression, Kidney Stones Denies:: Cancer, Diabetes Mellitus Type 1, Diabetes Mellitus Type 2, Hypertension, MRSA *Have you ever received a pneumonia vaccine?: No *Have you received a flu vaccine this season?: Yes Other Medical History: Reports: Other Anesthesia experience/problems:: None Other Surgeries: Yes: Other Amputation: No Fractures: No - *Social History Last grade of school completed: Advanced degree Smoking Status: Never smoker Alcohol Intake: current Alcohol Intake Frequency:: holidays/special occasions only Substance Use Type: denies use *Occupational Status:: employed Housing: house Household Members: significant other *Travel in the last 8 weeks: None Family Hx:: Asthma, Cancer, Diabetes, Hyperlipidemia, Hypertension
--- NOTE | 2021-06-06 11:34 | P.PN_ITS ---
[facility] Anesthesia Record Part I Intake, IV Amount: 300 Estimated blood loss (mL): 0 Urine output (mL): 0 Blood Pressure: 119/77 SaO2: 93 Pulse Rate: 79 Respiratory Rate: 14 Temperature: 98.4 F Patient is:: Drowsy, Oral/Nasal airway Stable to PACU at:: 11:34
--- NOTE | 2021-06-06 11:38 | HMH.OPNOTE ---
Date of procedure: 06/06/21 Pre-op Diagnosis:: 1 cm left UPJ stone Post-op Diagnosis:: 1 cm left UPJ stone Procedure performed:: Cystoscopy with left stone manipulation and left stent placement Surgeon:: Favian Fair MD SENIOR INTEGRATION ARCHITECT:: John Garcia Anesthesia: LMA Estimated blood loss (mL): 0 Clinical Note:: 31-year-old white female with a 1 cm left UPJ stone presents for urologic management. Operative findings:: Stone at the left UPJ. It was manipulated proximally left stent placed without difficulty. There was no evidence of pyelonephrosis. Operative note:: Patient taken to the operating room after informed consent was obtained. She was placed on the operating table in the supine position and general anesthesia administered. 1 g of Rocephin was given and sequential compression devices placed. She was then placed into the dorsal lithotomy position and prepped and draped in the standard surgical fashion. The 22 Pedro Luis passed into the urethra and into the bladder without difficulty. The bladder was examined in a systematic fashion. There is no evidence of mucosal abnormalities, stones or diverticula. The ureteral orifices in their normal anatomic position. A 5 [place] ureteral catheter was passed into the left ureteral orifice and under fluoroscopy passed up to the level of the stone. The stone was manipulated proximally without difficulty and a guidewire then passed through the ureteral catheter and the ureteral catheter removed. A 4.8 x 24 [place] stent was then passed over the guidewire. The guidewire was removed and a good curl was noted proximally and distally. The string was left on for later removal. The bladder drained and the scope removed. Urojet placed into the urethra. Patient tolerated procedure well without complication. Condition: stable Disposition: PACU Specimens:: None Complications:: None
--- NOTE | 2021-06-06 16:22 | P.DS_ITS ---
General - General Admission date:: 06/05/21 Discharge date: 06/06/21 HPI HPI: 31-year-old female with history of 2 prior kidney stones presented to the emergency department with acute onset of left flank pain. Patient states she thought she pulled a muscle. Pain was quite severe and unrelenting. Patient was found to have a 10 x 5 mm ureteral stone at the left UVJ showing signs of obstructive uropathy. Patient was admitted for pain control and urologic consultation. This morning she continues to have flank pain and has recently received Toradol. Hospital Course Hospital Course: Patient was admitted for pain control. She was treated with Toradol and morphine to control pain. On June 06 patient underwent urologic evaluation with stone extraction and left ureteral stent placement by Dr. Fair. Patient tolerated well. She was discharged home later in the day on June 06. Patient will follow up with Dr. Fair as an outpatient. Objective Vital signs: Temp Pulse Resp BP Pulse Ox 98.1 F 81 18 132/74 96 06/06/21 12:04 06/06/21 15:45 06/06/21 15:45 06/06/21 15:45 06/06/21 15:45 Results Labs on day of discharge: Labs from last 24 hours 06/06/21 06/06/21 06/05/21 06:07 06:07 16:50 WBC 8.1 RBC 4.30 Hgb 10.3 L Hct 31.6 L MCV 73.5 L MCH 24.0 L MCHC 32.6 RDW 16.9 Plt Count 339 MPV 7.7 Neut % (Auto) 67.4 Lymph % (Auto) 26.0 [place] % (Auto) 5.3 Eos % (Auto) 1.0 Baso % (Auto) 0.3 Neut # (Auto) 5.5 Lymph # (Auto) 2.1 [place] # (Auto) 0.4 Eos # (Auto) 0.1 Baso # (Auto) 0.0 Sodium 139 Potassium 3.7 Chloride 108 H Carbon Dioxide 24 Anion Gap 10.7 BUN 11 D Creatinine 0.60 Estimated Creat Clear 135 Estimated GFR 118 Est GFR ( Amer) 143 Glucose 90 Calcium 8.4 Phosphorus 3.3 Magnesium 1.8 SARS-CoV-2 (PCR) Not detected Influenza A Untype (PCR) Not detected Influenza Type B (PCR) Not detected DS: Diagnosis - Discharge Diagnosis (1) Left ureteral stone Status: Acute Discharge Plan - Patient Discharge Instructions ACTIVITY: Continue current activity DIET: continue same diet Patient Instructions: Kidney Stones -- Adult, DI for Kidney Stones, DI for Surgical Site Infection, Surgical Site Infection - Follow up Plan Follow up with: Favian Fair MD [Staff Physician] - (eswl scheduled for 06/13/21 at 0930) Disposition: Home, Self-Care Condition at discharge:: Improved Home Medications: Home Medications Medication Instructions Recorded Confirmed Type Sertraline HCl [Zoloft] 100 mg PO HS 06/05/21 06/06/21 History Prescriptions/Medication Reconciliation: Continued Sertraline HCl [Zoloft] 100 mg PO HS - Problem Reconciliation Problems Reviewed?: Yes
--- NOTE | 2021-06-06 17:36 | P.PN_ITS ---
[facility] Anesthesia Record Part II Discharge Time: 12:04 Destination: Surgical Day Care (OP Surgery) PACU nurse assessment reviewed?: Yes Patient Condition:: Good Anesthesia Complications:: None Swallowing reflex intact?: Yes Cyanosis?: No Blood Pressure: 136/87 Pulse Rate: 82 Temperature: 98.1 F Mental Status: Alert & Oriented Pain level:: 3 Nausea and/or vomitting:: None Intake, IV Amount: 0
== END 2021-06-06 17:46 | disposition home or self-care (01) ==
LOC: ER 16:34 → 2ND 16:54
PROVIDERS: Urology; Admitting Provider Internal Medicine Adolescent Medicine; Emergency Provider Emergency Medicine; PCP Nurse Practitioner Family; Visit Provider Family Medicine
PROC: (CPT 52330; principal; 2021-06-06 10:30)
DX: N20.1 Calculus of ureter (principal); Z20.822 Contact with and (suspected) exposure to COVID-19
CPT/HCPCS: 52330; 52332; 36415; 74018; 74176; 76000; 80048; 81001; 81025; 83735; 84100; 84703; 85025; 87086; 96365; 96375; 96376; 99284; C2617; G0378; J2405; U0003

== ENCOUNTER → 2021-06-11 12:30 | Outpatient (CLI) | payer OTHER, SELFPAY | PROVIDERS: Visit Provider Urology | DX: Z01.812 Encounter for preprocedural laboratory examination (principal); Z20.822 Contact with and (suspected) exposure to COVID-19; N20.1 Calculus of ureter | CPT/HCPCS: U0003 ==

== ENCOUNTER 2021-06-13 09:21 | Day surgery (SDC) | payer OTHER, SELFPAY ==
[2021-06-10 10:04] VITALS: BMI 45.4
[2021-06-13] VITALS (12 sets, daily range): BP systolic 141–154; BP diastolic 81–97; PULSE 64–84; RESP 14–18; TEMP 36.3–36.8; O2SAT 92–99
--- NOTE | 2021-06-13 10:09 | XR_ITS ---
PROCEDURE: XR KUB CLINICAL INDICATION: preop COMPARISON: CT CT ABDOMEN PELVIS WO CON from 06/05/2021 FINDINGS: Gas pattern-The bowel gas pattern is unremarkable. No obvious obstruction. There is a focal calcific density projecting in the lateral to the left L3 transverse process. This likely corresponds to the proximal ureteric calculus noted on the prior study no significant interval change compared to the prior CT scan allowing for technical differences. No other renal or ureteral calculi. Bones-No acute bony anomalies evident. IMPRESSION: Findings are suggestive of left proximal ureteric calculus, demonstrates no significant interval change compared to the prior CT scan allowing for technical differences. Dictated by: Elham Woods 06/13/2021 10:57 Elham Woods in [place] 06/13/2021 10:57
--- NOTE | 2021-06-13 11:34 | P.PN_ITS ---
[facility] Anesthesia Checklist - Patient Identification Patient Identification: Arm Band - Structural Data Admitted From: Home Planned Operative Procedure/s: ESWL Consent for Planned Operative Procedure(s) Verified: Yes - NPO Status Verified Time NPO: 00:00 - Additional verifications Anesthesia Reactions: No Hx Blood Transfusions: No Blood Transfusion Reaction: No - Airway Assessment C-Spine Mobility Assessed: Yes TMJ Mobility Assessed: Yes Dentition: Good Dentition - Neurological Assessment Level of Consciousness: Awake Hx Seizures: No Numbness or tingling in extremities: No - Anesthesia Plan Anesthesia Risk discussed: Yes Anesthesia Plan: Verified ASA Class: II Anesthesia Type: General [facility] History I have reviewed the patient's past medical history: Yes Medical History: Reports:: Depression, Kidney Stones Denies:: Cancer, Diabetes Mellitus Type 1, Diabetes Mellitus Type 2, Hypertension, Internal Pacemaker, MRSA, Seizures *Have you ever received a pneumonia vaccine?: No *Have you received a flu vaccine this season?: Yes Other Medical History: Reports: Other. Denies: Blood Transfusion Reaction Anesthesia experience/problems:: N/V, tearful Other Surgeries: Yes: Other. No: Pacemaker Amputation: No Fractures: No - *Social History Smoking Status: Never smoker Alcohol Intake: never Alcohol Intake Frequency:: holidays/special occasions only Substance Use Type: denies use *Occupational Status:: employed Housing: house Household Members: significant other *Travel in the last 8 weeks: None - Psychiatric History Pschychiatric History:: Reports:: Depression Family Hx:: No significant family history
--- NOTE | 2021-06-13 14:24 | HMH.ANESI ---
[facility] Anesthesia Record Part I Intake, IV Amount: 700 Estimated blood loss (mL): 0 Urine output (mL): 0 Blood Pressure: 154/91 SaO2: 99 Pulse Rate: 79 Respiratory Rate: 14 Temperature: 98.3 F Patient is:: Drowsy Stable to PACU at:: 14:22
--- NOTE | 2021-06-13 15:21 | HMH.ANESII ---
[facility] Anesthesia Record Part II Discharge Time: 14:52 Destination: Surgical Day Care (OP Surgery) PACU nurse assessment reviewed?: Yes Patient Condition:: Good Anesthesia Complications:: None Swallowing reflex intact?: Yes Cyanosis?: No Blood Pressure: 154/86 Pulse Rate: 74 Temperature: 97.7 F Mental Status: Alert & Oriented Pain level:: 4 Nausea and/or vomitting:: None Intake, IV Amount: 0
--- NOTE | 2021-06-13 15:30 | SUR.PHASEII ---
REPORT GIVEN TO Blanca YOUNG RN FOR TAKE OVER OF CARE.
--- NOTE | 2021-06-13 16:13 | P.OP_ITS ---
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 She has been left renal colic in the 6 mm stone in her proximal left ureter last week. She was taken to the operating room where stone manipulation and left stent placement was performed. Unfortunately the day after the procedure she inadvertently pulled the stent out while in the shower. She has been doing well in the interim and does state some nausea and slight discomfort over the past day or 2. A preoperative KUB reveals that the stone is back in the proximal ureter now. We discussed options including straight ESWL versus replacing the stent or manipulating the stone and due to its small size I recommended we just proceed with ESWL only. Operative findings:: Left proximal ureteral stone Operative note:: Patient taken to the operating room after informed consent was obtained. Was placed on the operating table in the supine position and general anesthesia administered. Preoperative antibiotics and sequential compression devices placed. The lithotripter was focused onto the proximal left ureteral stone and a total of 3500 shockwaves were delivered to the stone with apparent fragmentation. Patient tolerated the procedure well there are no complications. She was transported to recovery when stable condition. Condition: stable Disposition: PACU Specimens:: None Complications:: None
== END 2021-06-13 15:45 | disposition home or self-care (01) ==
LOC: OR 09:22
PROVIDERS: PCP Family Medicine; Visit Provider Urology
PROC: (CPT 50590; principal; 2021-06-13 11:00)
DX: N20.1 Calculus of ureter (principal); Z87.442 Personal history of urinary calculi; F32.9 Major depressive disorder, single episode, unspecified; Z88.6 Allergy status to analgesic agent
CPT/HCPCS: 50590; 74018; 96374; J2405

== ENCOUNTER → 2021-06-24 13:17 | Outpatient (CLI) | payer OTHER, SELFPAY ==
--- NOTE | 2021-06-24 13:20 | XR_ITS ---
PROCEDURE: XR KUB CLINICAL INDICATION: ureteral stone Left flank pain COMPARISON: CT CT ABDOMEN PELVIS WO CON from 06/05/2021 CR XR KUB from 06/13/2021 FINDINGS: Gas pattern-The bowel gas pattern is unremarkable. No obvious obstruction. Calcifications-No abnormal calcifications are evident. No obvious renal or ureteral calculi. Bones-No acute bony anomalies evident. IMPRESSION: No acute findings. Dictated by: Corbin Amezcua MD 06/24/2021 14:56 Corbin Amezcua MD in [place] 06/24/2021 14:56
[2021-07-22 14:22] LABS: Size 4X4 mm; Specimen Type NOT PROVIDED
[2021-07-22 14:23] LABS: Ca oxalate dihydrate 30; Calcium phosphate 5
== END ==
PROVIDERS: PCP Family Medicine; Visit Provider Urology
DX: N20.1 Calculus of ureter (principal); N20.0 Calculus of kidney
CPT/HCPCS: 74018; 82370

== ENCOUNTER 2021-11-09 19:29 | Emergency (ER) | payer OTHER, SELFPAY ==
[2021-11-09 19:39] VITALS: BP 139/97; PULSE 108; RESP 18; TEMP 36.6; O2SAT 100; BMI 44.1
[2021-11-09 19:47] LABS: Coronavirus 19, PCR Not Detected (NotDetected); Influenza A, PCR Not Detected (NotDetected); Influenza B, PCR Not Detected (NotDetected)
[2021-11-09 20:01] LABS: UTC Strep Screen (Rapid) Negative (Negative)
--- NOTE | 2021-11-09 20:04 | HMH.EDUTC ---
[facility] [place] [facility] Disposition Clinical Impression: Acute bronchitis Qualifiers: Bronchitis organism: unspecified organism Qualified Code(s): J20.9 - Acute bronchitis, unspecified Pharyngitis Qualifiers: Pharyngitis/tonsillitis etiology: unspecified etiology Qualified Code(s): J02.9 - Acute pharyngitis, unspecified Disposition: Home, Self-Care Condition on Discharge: Good Instructions: DI for Pharyngitis/Tonsillopharyngitis -- Adult, Sore Throat, DI for Acute Bronchitis Additional Instructions: Drink plenty of fluids. Take tylenol or ibuprofen for pain or fever. Take the medications as directed. Follow up with your regular doctor. GO TO THE ER FOR ANY WORSENING SYMPTOMS Prescriptions: Brompheniramine/Pseudoephed/Dm [Bromfed Dm Cough Syrup] 5 ml PO Q6HP PRN #240 ml PRN Reason: Cough Transmission Status: Pending to [facility] methylPREDNISolone [Medrol] 4 mg PO DIRECTED 6 Days #21 packet Transmission Status: Pending to [facility] Azithromycin [Z-Abhishek 250mg Tab*] 250 mg PO UD DOSE PK #6 tab Transmission Status: Pending to [facility] Referrals: Jose Dias MD [Primary Care Provider] - Forms: Work/School Release Time of Disposition: 21:13 Medical Decision Making - Medical Records Medical records reviewed: No: I reviewed the patient's medical records. - Farooq Inquiry Pt receiving controlled substance: No Vital Signs: 11/09/21 19:39 Temperature 97.8 F Temperature Source Oral Pulse Rate [Left] 108 H Respiratory Rate 18 Blood Pressure [Right Arm] 139/97 H Blood Pressure Mean [Right Arm] 111 02 Sat by Pulse Oximetry 100 - Lab Data Lab results reviewed: Yes: I reviewed the patient's lab results. Lab Results 11/09/21 19:41: Strep Scn Rapid Clinic Negative 11/09/21 19:43: SARS-CoV-2 (PCR) Not detected, Influenza A Untype (PCR) Not detected, Influenza Type B (PCR) Not detected Orders (Tests/Meds): ORDERS Category Date Time Status Strep Screen Confirmation Routine Micro 11/09/21 19:41 Received [facility] [place] HPI - General Stated complaint: cough runny nose congestion headache Time Seen by Provider: 11/09/21 20:04 Mode of Arrival: Ambulatory Source of Information: Patient Limitations: No Limitations Description of Symptoms (Recalled from Triage Doc. by RN): pt c/o a cough, sore throat, congestion and CEJA. x4 days. HEENT Symptoms (Recalled from RN notes): Yes (sore throat, congestion and CEJA) Resp Symptoms (Recalled from RN notes): Yes (cough) Skin Symptoms (Recalled from RN notes): No MS Symptoms (Recalled from RN notes): No Functional Status (Recalled from RN notes): wnl - History of Present Illness Provider Complaint: She states that for the past 1 day she has been feeling bad, coughing, and having chest congestion. She was having a very runny nose yesterday before her symptoms began. She denies any fever or chills. She has been fully vaccinated against covid-19. - Related Data Home Medications Medication Instructions Recorded Confirmed docosahexaenoic acid 200 mg capsule mg PO 06/26/21 10/27/21 letrozole 2.5 mg tablet 2.5 mg PO DAILY 06/26/21 10/27/21 Previous Rx's Medication Instructions Recorded sertraline 100 mg tablet 100 mg PO HS #30 tab 10/27/21 Azithromycin [Z-Abhishek 250mg Tab*] 250 mg PO UD DOSE PK #6 tab 11/09/21 Brompheniramine/Pseudoephed/Dm 5 ml PO Q6HP PRN #240 ml 11/09/21 [Bromfed Dm Cough Syrup] methylPREDNISolone [Medrol] 4 mg PO DIRECTED 6 Days #21 11/09/21 packet Allergies Allergy/AdvReac Type Severity Reaction Status Date / Time codeine [CODEINE] Allergy Unknown Verified 10/27/21 13:01 - Worker's Comp Is this a Worker's Comp case?: No [facility] History - Hepatitis A Screen Drug use history?: No High risk sexual behaviors?: No History of sexually transmitted infection?: No Currently employed?: No Childcare worker?: No Do you have indoor plumbing?: Yes Do you have electricity?: Yes Attestation statement::
[2021-11-09 21:22] LABS: Adenovirus,PCR Not Detected (NotDetected); Bordetella Pertussis Not Detected (NotDetected); Chlamydophila Pneumoniae, PCR Not Detected (NotDetected); Coronavirus 19, PCR Not Detected (NotDetected); Coronavirus 229E Not Detected (NotDetected); Coronavirus NL63 Not Detected (NotDetected); Coronavirus OC43 Not Detected (NotDetected); Coronovirus HKU1,PCR Not Detected (NotDetected); Influenza A, PCR Not Detected (NotDetected); Influenza AH1, 2009 Not Detected (NotDetected); Influenza AH1, PCR Not Detected (NotDetected); Influenza AH3,PCR Not Detected (NotDetected); Influenza B, PCR Not Detected (NotDetected); Mycoplasma Pneumoniae, PCR Not Detected (NotDetected); Parainfluenza 1, PCR Not Detected (NotDetected); Parainfluenza 2, PCR Not Detected (NotDetected); Parainfluenza 3, PCR Not Detected (NotDetected); Parainfluenza 4, PCR Not Detected (NotDetected); Respiratory Syncytial Virus Not Detected (NotDetected); Rhinovirus/Enterovirus Not Detected (NotDetected)
[2021-11-09 21:25] VITALS: BP 139/97; PULSE 108; RESP 18; TEMP 36.6
[2021-11-09 23:27] LABS: Human Metapneumovirus Detected (NotDetected)
== END 2021-11-09 21:27 | disposition home or self-care (01) ==
PROVIDERS: Emergency Provider Nurse Practitioner Family; PCP Family Medicine
DX: J20.9 Acute bronchitis, unspecified (principal); J02.9 Acute pharyngitis, unspecified; F33.1 Major depressive disorder, recurrent, moderate
CPT/HCPCS: 87581; 87632; 87798; 87880; 99203; C9803; G0463; U0003; U0005

== ENCOUNTER → 2022-01-09 09:58 | Outpatient (CLI) | payer OTHER, SELFPAY ==
[2022-01-09 10:14] LABS: Basophils % 0.5 % (0.1-2.0); Eosinophils # 0.1 K/mm3 (0.0-0.4); Eosinophils % 0.9 % (0.1-12.0); Hematocrit 35.6 % (37.0-47.0); Hemoglobin 11.5 g/dL (12.2-16.2); Lymphocytes # 1.9 K/mm3 (0.7-4.5); Lymphocytes % 23.1 % (10-50); Mean Corpuscular HGB Conc 32.3 g/dL (31.8-35.4); Mean Corpuscular Hemoglobin 25.7 pg (27.0-31.2); Mean Corpuscular Volume 79.6 fl (81-99); Mean Platelet Volume 7.6 fl (7.4-10.4); Monocytes # 0.3 K/mm3 (0.1-1.0); Monocytes % 4.1 % (1.7-9.3); Neutrophils # 5.8 K/mm3 (1.8-7.8); Neutrophils % 71.4 % (37.0-80.0); Platelet Count 335 K/mm3 (142-424); Red Blood Count 4.47 M/mm3 (4.20-5.40); Red Cell Distribution Width 15.5 % (11.5-17.5); White Blood Count 8.1 K/mm3 (4.8-10.8)
[2022-01-09 10:57] LABS: Hemoglobin A1C 5.2 % (4.0-6.0)
[2022-01-09 11:00] LABS: Chloride 106 mmol/L (98-107); Sodium 135 mmol/L (136-145)
[2022-01-09 11:03] LABS: Alanine Aminotransferase 21 U/L (12-78); Albumin Level 3.9 g/dl (3.5-5.0); Albumin/Globulin Ratio 1.4 (1.1-1.8); Alkaline Phosphatase 94 U/L (38-126); Aspartate Amino Transferase 24 U/L (14-36); Bilirubin,Total 0.2 mg/dl (0.2-1.3); Blood Urea Nitrogen 12 mg/dl (7-17); Carbon Dioxide 24 mmol/L (22.0-30.0); Estimated Glomerular Filt Rate 118 ml/min (>60); GFR (African American) 143 ML/MIN (>60); Globulin 2.8 g/dL (1.3-3.2); Total Protein,Serum 6.7 g/dl (6.3-8.2)
[2022-01-09 11:04] LABS: Calcium 8.5 mg/dl (8.4-10.2); Glucose 98 mg/dl (74-100)
[2022-01-09 11:20] LABS: Triiodothryronine (T3) Uptake 31 % (23.5-40.5)
[2022-01-09 11:21] LABS: Free Thyroxine Index 3.1 ug/dL (5.93-13.13)
[2022-01-09 11:35] LABS: Thyroid Stimulating Hormone 1.62 uIU/mL (0.465-4.68)
[2022-01-09 12:16] LABS: Vitamin B12 718 pg/mL (239-931)
== END ==
PROVIDERS: Visit Provider Nurse Practitioner Family
DX: I10 Essential (primary) hypertension (principal); E28.2 Polycystic ovarian syndrome; E04.1 Nontoxic single thyroid nodule; G43.909 Migraine, unspecified, not intractable, without status migrainosus; K21.9 Gastro-esophageal reflux disease without esophagitis
CPT/HCPCS: 36415; 80053; 82607; 83036; 84436; 84443; 84479; 85025

== ENCOUNTER → 2022-01-15 12:47 | Outpatient (CLI) | payer OTHER, SELFPAY ==
--- NOTE | 2022-01-15 12:50 | US_ITS ---
FINAL REPORT CLINICAL HISTORY: THYROID NODULE COMPARISON: 09/13/2019 FINDINGS: Sonographic images of the thyroid were obtained. The right lobe of the thyroid measures 1.1 x 3.6 x 2.0 cm. The left lobe of the thyroid measures 1.3 x 4.5 x 1.6 cm. The isthmus measures 2 mm. There are multiple, hypoechoic nodules in the left lobe of the thyroid. There is a solitary nodule in the right lobe. All measure less than 1 cm in greatest dimension. Findings are consistent with TI-RADS Category 4. IMPRESSION: Multiple bilateral thyroid nodules consistent with TI-RADS Category 4. No follow-up is required based on size. Reviewed, Interpreted and Dictated by Chente Hernandez MD Transcribed by Nora Vieyra Authenticated by Chente Hernandez MD on 01/15/2022 03:58:58 PM [facility]
== END ==
PROVIDERS: PCP Family Medicine; Visit Provider Nurse Practitioner Family
DX: E04.1 Nontoxic single thyroid nodule (principal)
CPT/HCPCS: 76536

== ENCOUNTER 2022-05-02 18:01 | Emergency (ER) | payer OTHER, SELFPAY ==
[2022-05-02 18:15] VITALS: BMI 45.6
[2022-05-02 18:25] LABS: Microscopic, Urine URINE MICROSCOPIC (MICROSCOPIC)
[2022-05-02 18:35] LABS: Basophils # 0.2 K/mm3 (0-0.2); Basophils % 1.6 % (0.1-2.0); Eosinophils # 0.2 K/mm3 (0.0-0.4); Eosinophils % 1.9 % (0.1-12.0); Hemoglobin 12.4 g/dL (12.2-16.2); Lymphocytes # 2.3 K/mm3 (0.7-4.5); Lymphocytes % 24.3 % (10-50); Mean Corpuscular HGB Conc 33.7 g/dL (31.8-35.4); Mean Corpuscular Hemoglobin 26.9 pg (27.0-31.2); Mean Platelet Volume 8.1 fl (7.4-10.4); Monocytes # 0.5 K/mm3 (0.1-1.0); Monocytes % 5.1 % (1.7-9.3); Neutrophils # 6.4 K/mm3 (1.8-7.8); Neutrophils % 67.1 % (37.0-80.0); Platelet Count 380 K/mm3 (142-424); Red Blood Count 4.62 M/mm3 (4.20-5.40); Red Cell Distribution Width 15.9 % (11.5-17.5); White Blood Count 9.5 K/mm3 (4.8-10.8)
[2022-05-02 18:37] LABS: Chloride 108 mmol/L (98-107); Potassium 3.9 mmoL/L (3.5-5.1); Sodium 139 mmol/L (136-145)
--- NOTE | 2022-05-02 18:37 | CT_ITS ---
PROCEDURE INFORMATION: Exam: CT Abdomen And Pelvis Without Contrast Exam date and time: 05/02/22 06:51 PM Age: 32 years old Clinical indication: Nausea and vomiting; Abdominal pain; Generalized; Additional info: Abd pain TECHNIQUE: Imaging protocol: Computed tomography of the abdomen and pelvis without contrast. Radiation optimization: All CT scans at this facility use at least one of these dose optimization techniques: automated exposure control; mA and/or kV adjustment per patient size (includes targeted exams where dose is matched to clinical indication); or iterative reconstruction. COMPARISON: CT ABDOMEN PELVIS WO CON 06/05/21 03:58 PM FINDINGS: Tubes, catheters and devices: None noted. Lungs: Lung bases appear clear. Heart: No significant coronary calcifications. No cardiomegaly. No significant pericardial effusion. Liver: Normal. No mass. Gallbladder and bile ducts: Normal. No calcified stones. No ductal dilation. Pancreas: Normal. No ductal dilation. Spleen: Normal. No splenomegaly. Adrenal glands: Normal. No mass. Kidneys and ureters: Punctate nonobstructive calcification left ventral midpole calyx. No hydronephrosis. Stomach and bowel: Unremarkable. No obstruction. No mucosal thickening. Appendix: No evidence of appendicitis. Intraperitoneal space: Unremarkable. No free air. No significant fluid collection. Retroperitoneal space: No significant retroperitoneal inflammatory changes are noted. Vasculature: Unremarkable. No abdominal aortic aneurysm. Lymph nodes: Unremarkable. No enlarged lymph nodes. Urinary bladder: Unremarkable as visualized. Reproductive: Unremarkable as visualized. Bones/joints: Unremarkable. No acute fracture. Soft tissues: Unremarkable. IMPRESSION: 1. No acute findings. 2. Punctate nonobstructive calcification left ventral midpole calyx.
[2022-05-02 18:39] VITALS: BP 155/83; PULSE 108; RESP 17; TEMP 36.8; O2SAT 99; BMI 45.6
[2022-05-02 18:40] LABS: Alanine Aminotransferase 26 U/L (12-78); Albumin/Globulin Ratio 1.3 (1.1-1.8); Alkaline Phosphatase 94 U/L (38-126); Anion Gap 10.9 mEq/L (5-15); Aspartate Amino Transferase 28 U/L (14-36); Bilirubin,Total 0.2 mg/dl (0.2-1.3); Blood Urea Nitrogen 10 mg/dl (7-17); Calcium 9.1 mg/dl (8.4-10.2); Carbon Dioxide 24 mmol/L (22.0-30.0); Creatinine Clearance Estimated 119 mL/min (50-200); Estimated Glomerular Filt Rate 98 ml/min (>60); GFR (African American) 119 ML/MIN (>60); Globulin 3.2 g/dL (1.3-3.2); Glucose 124 mg/dl (74-100); Lipase 100 U/L (23-300); Total Protein,Serum 7.2 g/dl (6.3-8.2)
--- NOTE | 2022-05-02 18:46 | ECG_ITS ---
APPROVED REPORT Exam: Resting ECG HR:89 bpm ECG Measurements Heart Rate 89 AXES VA 137 P 23 QRSd 94 QRS 29 QT 359 T 16 QTc 406 Conclusion SINUS RHYTHM LOW QRS VOLTAGE IN PRECORDIAL LEADS [QRS DEFLECTION < 1.0 mV IN CHEST LEADS] BORDERLINE ECG UNCONFIRMED REPORT Electronically signed by : Jose Andrews MD 05/05/2022 22:21:26
[2022-05-02 18:48] LABS: Urine Pregnancy, HCG Qual. Negative (Negative)
[2022-05-02 19:15] LABS: Appearance,Urine CLEAR (Clear); Bilirubin,Urine Negative (Negative); Blood, Urine Negative (Negative); Color,Urine YELLOW (Yellow); Glucose,Urine (UA) Negative (Negative); Ketones,Urine Negative (Negative); Leukocyte Esterase,Urine Negative (Negative); Nitrate,Urine POSITIVE (Negative); Protein,Urine Negative (Negative); Specific Gravity, Urine >= 1.030 (1.005-1.030); Urobilinogen,Urine 0.2 EU/dl (0.2)
[2022-05-02 19:23] LABS: Bacteria,Urine 1+ /lpf; RBC,Urine Occasional #/hpf (0-3)
--- NOTE | 2022-05-02 19:44 | HMH.EDGENADL ---
ED Disposition Clinical Impression: Epigastric pain Gastroesophageal reflux disease Qualifiers: Esophagitis presence: with esophagitis Esophagitis bleeding: without hemorrhage Qualified Code(s): K21.00 - Gastro-esophageal reflux disease with esophagitis, without bleeding Nausea and vomiting Qualifiers: Vomiting type: unspecified Qualified Code(s): R11.2 - Nausea with vomiting, unspecified Disposition: Home, Self-Care Condition on Discharge: Good Instructions: DI for Gastroesophageal Reflux Disease (GERD), DI for Atypical Chest Pain, DI for Acute Abdominal Pain, DI for Vomiting -- Adult Additional Instructions: Protonix as prescribed for 2 weeks instead of famotidine. Zofran or Phenergan as needed for nausea and vomiting. Follow-up with primary care provider for further care. Prescriptions: Pantoprazole Sodium [Protonix 40mg tablet] 40 mg PO DAILY #15 tab Transmission Status: Pending to [id number] Referrals: Vira Goddard APRN [Primary Care Provider] - - Critical Care Critical Care Time: No Attestation: On 05/02/22, the high probability of a clinically significant, sudden or life threatening deterioration of the following system(s) required my full and direct attention, intervention and personal management. The time I documented below is in addition to time spent performing reported procedures but includes the following listed in this critical care notation. Medical Decision Making - Farooq Inquiry Pt receiving controlled substance: No Vital Signs: 05/02/22 18:39 Temperature 98.3 F Temperature Source Oral Pulse Rate [Left Radial] 108 H Respiratory Rate 17 Blood Pressure [Right Arm] 155/83 H Blood Pressure Mean [Right Arm] 107 02 Sat by Pulse Oximetry 99 Oxygen Delivery Method Room Air - Lab Data Lab Results 05/02/22 18:10: Urine Color Yellow, Urine Appearance Clear, Urine pH 6.0, Ur Specific Mccormick >= 1.030, Urine Protein Negative, Urine Glucose (UA) Negative, Urine Ketones Negative, Urine Blood Negative, Urine Nitrate Positive, Urine Bilirubin Negative, Urine Urobilinogen 0.2, Ur Leukocyte Esterase Negative, Urine RBC Occasional, Urine WBC 3-5, Ur Squamous Epith Cells 10-20, Urine Bacteria 1+ 05/02/22 18:10: Urine HCG, Qual Negative 05/02/22 18:15: WBC 9.5, RBC 4.62, Hgb 12.4, Hct 37.0, MCV 80.0 L, MCH 26.9 L, MCHC 33.7, RDW 15.9, Plt Count 380, MPV 8.1, Neut % (Auto) 67.1, Lymph % (Auto) 24.3, [place] % (Auto) 5.1, Eos % (Auto) 1.9, Baso % (Auto) 1.6, Neut # (Auto) 6.4, Lymph # (Auto) 2.3, [place] # (Auto) 0.5, Eos # (Auto) 0.2, Baso # (Auto) 0.2 05/02/22 18:15: Sodium 139, Potassium 3.9, Chloride 108 H, Carbon Dioxide 24, Anion Gap 10.9, BUN 10, Creatinine 0.70, Estimated Creat Clear 119, Estimated GFR 98, Est GFR ( Amer) 119, Glucose 124 H, Calcium 9.1, Total Bilirubin 0.2, AST 28, ALT 26, Alkaline Phosphatase 94, Total Protein 7.2, Albumin 4.0, Globulin 3.2, Albumin/Globulin Ratio 1.3, Lipase 100 05/02/22 18:15: Troponin I < 0.01 Result diagrams: 05/02/22 18:15 05/02/22 18:15 Orders (Tests/Meds): ED MEDICATIONS Generic Name Dose Route Start Last Admin Trade Name Freq PRN Reason Stop Dose Admin Sodium Chloride 1,000 mls @ 999 mls/hr 05/02/22 18:30 05/02/22 18:39 Sod Chlor 0.9% 1000ml Bag IV 05/02/22 19:30 999 mls/hr .Q1H1M ANTONIO Administration Sodium Chloride 10 ml 05/02/22 18:16 Sodium Chloride 0.9% 10ml Flush Syringe IV 06/01/22 18:15 NEEDED PRN Maintain IV Site Sodium Chloride 10 ml 05/02/22 20:01 Sodium Chloride 0.9% 10ml Vial IV 06/01/22 20:00 NEEDED PRN dilute protonix Discontinued Medications Generic Name Dose Route Start Last Admin Trade Name Freq PRN Reason Stop Dose Admin Belladonna Alkaloids 60 ml 05/02/22 20:01 05/02/22 20:04 Gi Cocktail 60ml Udc PO 05/02/22 20:02 60 ml ONCE ONE Administration Metoclopramide HCl 10 mg 05/02/22 20:00 05/02/22 20:04 Metoclopramide Hcl 10mg/2ml Vi
[2022-05-02 20:09] LABS: Troponin I < 0.01 ng/ml (0.00-0.034)
[2022-05-02 20:39] VITALS: BP 138/80; PULSE 88; RESP 20; TEMP 36.8; O2SAT 99
== END 2022-05-02 21:08 | disposition home or self-care (01) ==
PROVIDERS: Emergency Provider Emergency Medicine; PCP Nurse Practitioner Family
DX: K21.00 Gastro-esophageal reflux disease with esophagitis, without bleeding (principal); R11.2 Nausea with vomiting, unspecified; R07.9 Chest pain, unspecified; R06.02 Shortness of breath; F32.A Depression, unspecified; E04.1 Nontoxic single thyroid nodule; Z87.442 Personal history of urinary calculi; Z79.899 Other long term (current) drug therapy; Z88.5 Allergy status to narcotic agent; Z80.9 Family history of malignant neoplasm, unspecified
CPT/HCPCS: 74176; 80053; 81001; 81025; 83690; 84484; 85025; 93005; 96361; 96374; 96375; 99285; J2405

== ENCOUNTER → 2022-05-22 07:51 | Outpatient (CLI) | payer OTHER, SELFPAY ==
--- NOTE | 2022-05-22 07:54 | FL_ITS ---
FINAL REPORT CLINICAL HISTORY: IBS W/ALTERNATING BOWEL HABITS FINDINGS: UPPER GI EXAM HISTORY: . Epigastric pain. Gastroesophageal reflux. PROCEDURE: The patient ingested barium. Effervescent crystals were also administered. Spot and overhead films were obtained. FINDINGS: The esophagus is normal. There is a small sliding-type hiatal hernia. There was gastroesophageal reflux demonstrated to the midesophagus. Peristalsis is normal. The rugal fold pattern of the stomach is normal. The duodenal bulb is normal. A 13 mm barium tablet passes through the esophagus and into the stomach without delay. FLUOROSCOPY TIME: 1.2 minutes. 16 radiographs were obtained IMPRESSION: Small sliding-type hiatal hernia with gastroesophageal reflux. Films reviewed , interpreted and dictated by Dr. Sidhu. Transcribed by Xavier Mayfield PA-C. Reviewed, Interpreted and Dictated by Quinton Sidhu III, MD Transcribed by IVA Lee Authenticated and [facility]
== END ==
PROVIDERS: PCP Nurse Practitioner Family; Visit Provider Nurse Practitioner Family
DX: K58.2 Mixed irritable bowel syndrome (principal)
CPT/HCPCS: 74246

== ENCOUNTER → 2022-06-01 13:16 | Outpatient (CLI) | payer OTHER, SELFPAY ==
[2022-06-01 14:28] LABS: HCG Qualitative, Serum Negative (Negative)
== END ==
PROVIDERS: PCP Nurse Practitioner Family; Visit Provider Internal Medicine
DX: Z01.818 Encounter for other preprocedural examination (principal); Z20.822 Contact with and (suspected) exposure to COVID-19; Z13.810 Encounter for screening for upper gastrointestinal disorder
CPT/HCPCS: 36415; 84703; C9803; U0003; U0005

== ENCOUNTER 2022-06-03 11:06 | Day surgery (SDC) | payer OTHER, SELFPAY ==
--- NOTE | 2022-06-03 11:12 | P.PN_ITS ---
[facility] Anesthesia Checklist - Patient Identification Patient Identification: Arm Band, Verbal (Name & ) - Structural Data Admitted From: Home Planned Operative Procedure/s: EGD Consent for Planned Operative Procedure(s) Verified: Yes Verified Documents: Surgical Consent - NPO Status Verified Time NPO: 00:00 - Additional verifications Anesthesia Reactions: No Hx Blood Transfusions: No Blood Transfusion Reaction: No - Airway Assessment C-Spine Mobility Assessed: Yes TMJ Mobility Assessed: Yes Dentition: Good Dentition - Neurological Assessment Level of Consciousness: Awake, Alert, Appropriate - Anesthesia Plan Anesthesia Risk discussed: Yes ASA Class: II Anesthesia Type: MAC [facility] History I have reviewed the patient's past medical history: Yes Medical History: Reports:: Depression, Kidney Stones Denies:: Cancer, Diabetes Mellitus Type 1, Diabetes Mellitus Type 2, Hypertension, Internal Pacemaker, MRSA, Seizures *Have you ever received a pneumonia vaccine?: No *Have you received a flu vaccine this season?: Yes Other Medical History: Reports: Other. Denies: Blood Transfusion Reaction Anesthesia experience/problems:: none Other Surgeries: Yes: Other. No: Pacemaker Amputation: No Fractures: No - *Social History Smoking Status: Never smoker Alcohol Intake: never Alcohol Intake Frequency:: holidays/special occasions only Substance Use Type: denies use *Occupational Status:: employed Housing: house Household Members: significant other *Travel in the last 8 weeks: None - Psychiatric History Pschychiatric History:: Reports:: Depression Family Hx:: No significant family history, Cancer
[2022-06-03 11:17] VITALS: BP 121/69; PULSE 91; RESP 16; TEMP 36.8; O2SAT 97; BMI 41.0
--- NOTE | 2022-06-03 11:57 | HMH.SCOPE ---
- Procedure: Date: 06/03/22 Patient Date of :: 1990 Procedure Performed:: EGD Indications:: The patient is a 32 year old who presents today for EGD evaluation of epigastric abdominal pain and nausea. She has had vomiting and regurgitations of partially digested foods towards the evening. A recent CT abdomen was unremarkable. An upper GI barium study showed a small hiatal hernia. Performing Provider:: Prasanna Aguilera MD Referring Provider:: Flori Goddard APRN Sedation:: See RN records Procedure:: The gastroscope was gently passed through the incisoral orifice into the oral cavity and under direct visualization the esophagus was intubated. The endoscope was passed down the esophagus, through the stomach, and into the duodenum. Color, texture, mucosa, and anatomy of the esophagus, stomach, and duodenum were carefully examined with the scope. Findings:: Oropharynx: normal Esophagus:Mild distal esophagitis (LA Class A esophagitis). Biopsies obtained EG Junction: Measured at 40 cm Cardia: normal Fundus: normal Body: Mild gastritis. Biopsies obtained Antrum: Mild gastritis. Biopsies obtained Duodenal bulb: normal Duodenum (second and third portion): normal. Biopsies obtained Recommendations:: Await pathology results Consider gastric emptying study to evaluate for gastroparesis as an etiology to symptoms Follow up with referring provider Complications:: None Estimated blood obtained (mL): 0
[2022-06-03 12:00] VITALS: BP 139/89; PULSE 102; RESP 18; TEMP 36.6; O2SAT 94
[2022-06-03 12:10] VITALS: BP 143/83; PULSE 95; RESP 18; TEMP 36.6; O2SAT 97
[2022-06-03 12:20] VITALS: BP 148/88; PULSE 85; RESP 18; TEMP 36.6; O2SAT 98
[2022-06-03 12:30] VITALS: BP 148/88; PULSE 85; RESP 18; TEMP 36.6; O2SAT 98
== END 2022-06-03 12:30 | disposition home or self-care (01) ==
LOC: OUTP 11:08
PROVIDERS: Internal Medicine; PCP Nurse Practitioner Family; Visit Provider Surgery
PROC: 0DJ08ZZ Inspection of Upper Intestinal Tract, Via Natural or Artificial Opening Endoscopic (ICD-10-PCS; CPT 43235; principal; 2022-06-03 12:30)
DX: R10.13 Epigastric pain (principal); K29.70 Gastritis, unspecified, without bleeding; K21.00 Gastro-esophageal reflux disease with esophagitis, without bleeding; F32.A Depression, unspecified
CPT/HCPCS: 43239

== ENCOUNTER → 2022-09-11 16:36 | Outpatient (CLI) | payer OTHER, SELFPAY ==
[2022-09-11 17:38] LABS: Basophils # 0.1 K/mm3 (0-0.2); Basophils % 0.6 % (0.1-2.0); Eosinophils # 0.1 K/mm3 (0.0-0.4); Eosinophils % 1.5 % (0.1-12.0); Hematocrit 35.1 % (37.0-47.0); Hemoglobin 11.7 g/dL (12.2-16.2); Lymphocytes # 2.1 K/mm3 (0.7-4.5); Lymphocytes % 25.1 % (10-50); Mean Corpuscular HGB Conc 33.2 g/dL (31.8-35.4); Mean Corpuscular Hemoglobin 26.3 pg (27.0-31.2); Mean Corpuscular Volume 79.2 fl (81-99); Mean Platelet Volume 8.1 fl (7.4-10.4); Monocytes # 0.3 K/mm3 (0.1-1.0); Monocytes % 3.7 % (1.7-9.3); Neutrophils # 5.8 K/mm3 (1.8-7.8); Platelet Count 362 K/mm3 (142-424); Red Blood Count 4.43 M/mm3 (4.20-5.40); Red Cell Distribution Width 15.1 % (11.5-17.5); White Blood Count 8.5 K/mm3 (4.8-10.8)
[2022-09-14 13:40] LABS: Protein S, Free 113 % (61-136); Protein S, Total 98 % (60-150); Protein S-Functional 98 % (63-140)
== END ==
PROVIDERS: Surgery; PCP Nurse Practitioner Family; Visit Provider Obstetrics & Gynecology Reproductive Endocrinology
DX: N96 Recurrent pregnancy loss (principal); Z31.41 Encounter for fertility testing; Z01.83 Encounter for blood typing
CPT/HCPCS: 36415; 81240; 81241; 82397; 85025; 85305; 85306

== ENCOUNTER → 2022-09-14 15:13 | Outpatient (CLI) | payer OTHER, SELFPAY | PROVIDERS: Surgery; PCP Nurse Practitioner Family; Visit Provider Obstetrics & Gynecology Reproductive Endocrinology | DX: E28.2 Polycystic ovarian syndrome (principal) ==

== ENCOUNTER → 2022-09-26 13:10 | Outpatient (CLI) | payer OTHER, SELFPAY ==
[2022-09-26 14:13] LABS: HCG Qualitative, Serum Positive (Negative)
== END ==
PROVIDERS: PCP Nurse Practitioner Family; Visit Provider Nurse Practitioner Family
DX: N91.2 Amenorrhea, unspecified (principal)
CPT/HCPCS: 36415; 84703

== ENCOUNTER → 2022-09-28 10:37 | Outpatient (CLI) | payer OTHER, SELFPAY ==
[2022-09-28 11:33] LABS: HCG,Quantitative 6 mIU/ml (0-5.42)
== END ==
PROVIDERS: PCP Nurse Practitioner Family; Visit Provider Surgery
DX: Z32.00 Encounter for pregnancy test, result unknown (principal)
CPT/HCPCS: 36415; 84702

== ENCOUNTER → 2022-09-30 10:49 | Outpatient (CLI) | payer OTHER, SELFPAY ==
[2022-09-30 11:41] LABS: HCG,Quantitative < 2 mIU/ml (0-5.42)
== END ==
PROVIDERS: PCP Nurse Practitioner Family; Visit Provider Obstetrics & Gynecology Reproductive Endocrinology
DX: Z32.00 Encounter for pregnancy test, result unknown (principal)
CPT/HCPCS: 36415; 84702

== ENCOUNTER 2022-10-02 08:03 | Emergency (ER) | payer OTHER, SELFPAY ==
[2022-10-02 08:25] VITALS: BP 131/80; PULSE 101; RESP 18; TEMP 36.9; O2SAT 99; BMI 47.9
[2022-10-02 08:42] LABS: UTC Strep Screen (Rapid) Negative (Negative)
[2022-10-02 08:43] LABS: UTC Influenza A Antigen Negative (Negative); UTC Influenza B Antigen Negative (Negative)
--- NOTE | 2022-10-02 08:46 | EXP.UTC ---
Discharge Plan Disposition Patient Disposition: Home, Self-Care Condition: Good Prescriptions Prescriptions: New amoxicillin 875 mg tablet 875 mg PO Q12H Qty: 20 0RF fluticasone propionate [Flonase Allergy Relief] 50 mcg/actuation spray,suspension 1 spray intranasal DAILY Qty: 16 0RF Rx Instructions: administer into each nostril methylprednisolone [Medrol (Abhishek)] 4 mg tablets,dose pack See Rx Instructions .Route .COMPLEX 6 Days Qty: 21 0RF Rx Instructions: taper pack; No Action sertraline 100 mg tablet 100 mg PO HS Qty: 90 0RF sertraline [Zoloft] 25 mg tablet 25 mg PO DAILY 90 Days Qty: 90 0RF Rx Instructions: take daily with the 100mg tablet (total dose is 125mg) Classic 28 mg iron- 800 mcg tablet PO labetalol 100 MG tablet 100 mg PO BID pantoprazole 40 mg tablet,delayed release (DR/EC) 40 mg PO BID Referrals Follow up/Referrals: Vira Goddard APRN [Primary Care Provider] - See instructions Activity Restrictions/Add. Instructions Additional Instructions/Restrictions: *Monitor Temp, Over the counter Motrin or Tylenol as directed/as needed Tylenol every 4 hours and Motrin every 6 hours (as long as your family doctor has told you that you can take it) for fever or pain. and straight to ER if unable to lower temp less than 101.0 after medication given *Warm salt water gargles may help to soothe the throat *Throat Lozenges? *Warm fluids like tea with honey may help to soothe the throat? *Sleep elevated *Humidifier/Vaporizer *Flonase 2 sprays in each nostril daily but be aware that it may take 2-3 days before you notice improvement Your throat swab was sent for culture. Those results are typically sent to your primary care. Be sure to follow up in 2-3 days with your family doctor/primary care physician if no improvement so they can review those result and treat if necessary. If you don?t have a primary care doctor, I recommend you get one but in the mean time, you will have to return to a walk in clinic Follow up IMMEDIATELY for new or worsening symptoms or no Noticeable improvement over the next 48-72 hours. 911 for difficulty breathing or swallowing Clinical Impressions Clinical Impression: Acute otitis media with effusion Stand Alone Forms Stand Alone Forms: Work/School Release Instructions Patient Instructions: Amoxicillin, Methylprednisolone, Middle Ear Infection Discharge ED Provider: Ruthie Loving [facility] – [place] HPI General Stated complaint: Earache,Sore throat,Bodyache Mode of Arrival: Ambulatory Source of Information: Patient Limitations: No Limitations Time Seen by Provider: 10/02/22 08:46 Description of Symptoms (Recalled from Triage Doc. by RN): PATIENT C/O RIGHT EAR ACHE, BODY ACHES, SORE THROAT AND HEADACHE X 2 DAYS HEENT Symptoms (Recalled from RN notes): Yes Resp Symptoms (Recalled from RN notes): No Skin Symptoms (Recalled from RN notes): No MS Symptoms (Recalled from RN notes): No Functional Status (Recalled from RN notes): WNL History of Present Illness Provider Complaint: Patient states that she has been having sorethroat, headache, pain in her right ear and not sleeping well due to the ear pain for 2 days States that last night she was hurting worse so she came in Related Data Home Medications Medication Instructions Recorded Confirmed labetalol 100 mg tablet 100 mg PO BID High blood pressure 06/03/22 06/03/22 pantoprazole 40 mg tablet,delayed 40 mg PO BID GERD 06/29/22 06/29/22 release vits no.126-ferrous fum tab PO 06/29/22 06/29/22 28 mg iron-folic acid 800 mcg tablet (Classic ) Previous Rx's Medication Instructions Recorded sertraline 100 mg tablet 100 mg PO HS MOOD #90 tabs 07/08/22 sertraline 25 mg tablet (Zoloft) 25 mg PO DAILY 90 days #90 tabs 07/08/22 amoxicillin 875 mg tablet 875 mg PO Q12H #20 tabs 10/02/22 fluticasone propionate 50 1 spray
[2022-10-02 08:53] VITALS: BP 131/80; PULSE 101; RESP 18; TEMP 36.9; O2SAT 99
== END 2022-10-02 09:01 | disposition home or self-care (01) ==
PROVIDERS: Emergency Provider Nurse Practitioner; PCP Nurse Practitioner Family
DX: H65.199 Other acute nonsuppurative otitis media, unspecified ear (principal)
CPT/HCPCS: 87804; 87880; 99212; G0463

== ENCOUNTER 2022-10-07 12:03 | Outpatient (CLI) | payer OTHER, SELFPAY ==
[2022-10-07 12:25] VITALS: BP 129/79; PULSE 78; RESP 18; TEMP 36.4; O2SAT 97
== END 2022-10-07 12:42 | disposition home or self-care (01) ==
LOC: INF 12:04
PROVIDERS: PCP Nurse Practitioner Family; Visit Provider Student in an Organized Health Care Education/Training Program
DX: H66.91 Otitis media, unspecified, right ear (principal)
CPT/HCPCS: 96372; J0696

== ENCOUNTER → 2022-11-26 08:18 | Outpatient (CLI) | payer OTHER, SELFPAY ==
[2022-11-26 09:32] LABS: Chloride 106 mmol/L (98-107); Potassium 4.2 mmoL/L (3.5-5.1); Sodium 138 mmol/L (136-145)
[2022-11-26 09:35] LABS: Alanine Aminotransferase 31 U/L (12-78); Albumin Level 3.8 g/dl (3.5-5.0); Albumin/Globulin Ratio 1.4 (1.1-1.8); Alkaline Phosphatase 92 U/L (38-126); Anion Gap 12.2 mEq/L (5-15); Aspartate Amino Transferase 32 U/L (14-36); Bilirubin,Total 0.3 mg/dl (0.2-1.3); Blood Urea Nitrogen 9 mg/dl (7-17); Calcium 8.5 mg/dl (8.4-10.2); Carbon Dioxide 24 mmol/L (22.0-30.0); Chol/HDL Ratio 4.3 (1-3.5); Cholesterol 205 mg/dl (140-200); Estimated Glomerular Filt Rate 145 ml/min (>60); GFR (African American) 175 ML/MIN (>60); Globulin 2.7 g/dL (1.3-3.2); Glucose 99 mg/dl (74-100); HDL Cholesterol 48 mg/dl (40-60); Total Protein,Serum 6.5 g/dl (6.3-8.2); Triglycerides 136 mg/dl (30-150); VLDL Cholesterol 27 mg/dL (0-40)
[2022-11-26 09:47] LABS: Direct LDL Cholesterol 101.43 mg/dL (100-129)
[2022-11-26 10:05] LABS: Hemoglobin A1C 5.4 % (4.0-6.0)
[2022-11-26 10:07] LABS: Thyroid Stimulating Hormone 2.11 uIU/mL (0.465-4.68)
[2022-11-26 10:16] LABS: Free T4 (Free Thyroxine) 1.25 ng/dl (0.78-2.19)
[2022-11-26 10:26] LABS: Vitamin B12 701 pg/mL (239-931)
[2022-12-01 23:43] LABS: 1,25 Dihydroxy Vitamin D 85 pg/mL (.); 1,25-Dihydroxy, Vitamin D-2 <10 pg/mL (.); 1,25-Dihydroxy, Vitamin D-3 84 pg/mL (.)
== END ==
PROVIDERS: PCP Nurse Practitioner Family; Visit Provider Nurse Practitioner Family
DX: E28.2 Polycystic ovarian syndrome (principal); F32.A Depression, unspecified; G43.909 Migraine, unspecified, not intractable, without status migrainosus; I10 Essential (primary) hypertension; K21.9 Gastro-esophageal reflux disease without esophagitis; R53.83 Other fatigue; E67.3 Hypervitaminosis D
CPT/HCPCS: 36415; 80053; 80061; 82607; 82652; 83036; 84439; 84443; 84481

== ENCOUNTER → 2023-02-10 15:33 | Outpatient (CLI) | payer OTHER, SELFPAY ==
--- NOTE | 2023-02-10 15:36 | XR_ITS ---
FINAL REPORT CLINICAL HISTORY: foot pain FINDINGS: Right foot Three views were obtained. There is no acute fracture or dislocation. The joint spaces appear normal. No soft tissue abnormality is identified. There is a moderate plantar spur. IMPRESSION: Moderate plantar spur. Reviewed, Interpreted and Dictated by Chente Hernandez MD Transcribed by Nora Vieyra Authenticated and [facility]
--- NOTE | 2023-02-10 15:36 | XR_ITS ---
FINAL REPORT CLINICAL HISTORY: foot pain FINDINGS: Left foot Three views were obtained. There is no acute fracture or dislocation. The joint spaces appear normal. No soft tissue abnormality is identified. There is a moderate plantar spur. IMPRESSION: Moderate plantar spur. Reviewed, Interpreted and Dictated by Chente Hernandez MD Transcribed by Nora Vieyra Authenticated and [facility]
== END ==
PROVIDERS: PCP Nurse Practitioner Family; Visit Provider Nurse Practitioner Family
DX: M79.671 Pain in right foot (principal); M79.672 Pain in left foot
CPT/HCPCS: 73630

== ENCOUNTER → 2023-03-25 16:46 | Outpatient (CLI) | payer OTHER, SELFPAY ==
[2023-03-25 16:50] LABS: Adenovirus,PCR Not Detected (NotDetected); Bordetella Pertussis Not Detected (NotDetected); Chlamydophila Pneumoniae, PCR Not Detected (NotDetected); Coronavirus 19, PCR Not Detected (NotDetected); Coronavirus 229E Not Detected (NotDetected); Coronavirus NL63 Not Detected (NotDetected); Coronavirus OC43 Not Detected (NotDetected); Coronovirus HKU1,PCR Not Detected (NotDetected); Human Metapneumovirus Not Detected (NotDetected); Influenza A, PCR Not Detected (NotDetected); Influenza AH1, 2009 Not Detected (NotDetected); Influenza AH1, PCR Not Detected (NotDetected); Influenza AH3,PCR Not Detected (NotDetected); Influenza B, PCR Not Detected (NotDetected); Mycoplasma Pneumoniae, PCR Not Detected (NotDetected); Parainfluenza 1, PCR Not Detected (NotDetected); Parainfluenza 2, PCR Not Detected (NotDetected); Parainfluenza 3, PCR Not Detected (NotDetected); Parainfluenza 4, PCR Not Detected (NotDetected); Respiratory Syncytial Virus Not Detected (NotDetected)
[2023-03-25 19:24] LABS: Rhinovirus/Enterovirus Detected (NotDetected)
== END ==
PROVIDERS: PCP Nurse Practitioner Family; Visit Provider Nurse Practitioner Family
DX: Z20.822 Contact with and (suspected) exposure to COVID-19 (principal); B34.1 Enterovirus infection, unspecified
CPT/HCPCS: 87581; 87632; 87798; C9803; U0003; U0005

== ENCOUNTER → 2023-03-30 12:49 | Outpatient (CLI) | payer OTHER, SELFPAY ==
[2023-03-30 15:06] LABS: HCG,Quantitative < 2 mIU/ml (0-5.42)
== END ==
PROVIDERS: PCP Nurse Practitioner Family; Visit Provider Nurse Practitioner Family
DX: N92.6 Irregular menstruation, unspecified (principal); Z32.00 Encounter for pregnancy test, result unknown
CPT/HCPCS: 36415; 84702

== ENCOUNTER → 2023-04-20 15:11 | Outpatient (POV) | payer OTHER, SELFPAY | PROVIDERS: Visit Provider Dermatology | DX: Z00.00 Encounter for general adult medical examination without abnormal findings (principal) ==

== ENCOUNTER → 2023-05-12 15:29 | Outpatient (CLI) | payer OTHER, SELFPAY ==
[2023-05-12 16:21] LABS: Basophils % 0.3 % (0.1-2.0); Eosinophils # 0.2 K/mm3 (0.0-0.4); Eosinophils % 1.9 % (0.1-12.0); Hematocrit 35.3 % (37.0-47.0); Hemoglobin 11.8 g/dL (12.2-16.2); Lymphocytes # 2.5 K/mm3 (0.7-4.5); Lymphocytes % 28.2 % (10-50); Mean Corpuscular HGB Conc 33.3 g/dL (31.8-35.4); Mean Corpuscular Hemoglobin 25.9 pg (27.0-31.2); Mean Corpuscular Volume 77.7 fl (81-99); Monocytes # 0.5 K/mm3 (0.1-1.0); Monocytes % 5.2 % (1.7-9.3); Neutrophils # 5.6 K/mm3 (1.8-7.8); Neutrophils % 64.4 % (37.0-80.0); Platelet Count 372 K/mm3 (142-424); Red Blood Count 4.54 M/mm3 (4.20-5.40); Red Cell Distribution Width 15.1 % (11.5-17.5); White Blood Count 8.8 K/mm3 (4.8-10.8)
[2023-05-12 16:27] LABS: Alanine Aminotransferase 28 U/L (12-78); Albumin Level 3.9 g/dl (3.5-5.0); Albumin/Globulin Ratio 1.1 (1.1-1.8); Alkaline Phosphatase 112 U/L (38-126); Anion Gap 14.7 mEq/L (5-15); Aspartate Amino Transferase 33 U/L (14-36); Bilirubin,Total 0.2 mg/dl (0.2-1.3); Blood Urea Nitrogen 12 mg/dl (7-17); Calcium 8.9 mg/dl (8.4-10.2); Carbon Dioxide 26 mmol/L (22.0-30.0); Chloride 105 mmol/L (98-107); Estimated Glomerular Filt Rate 117 ml/min (>60); GFR (African American) 141 ML/MIN (>60); Globulin 3.4 g/dL (1.3-3.2); Glucose 108 mg/dl (74-100); Potassium 3.7 mmoL/L (3.5-5.1); Sodium 142 mmol/L (136-145); Total Protein,Serum 7.3 g/dl (6.3-8.2)
[2023-05-12 16:44] LABS: HCG,Quantitative < 2 mIU/ml (0-5.42)
== END ==
PROVIDERS: PCP Nurse Practitioner Family; Visit Provider Obstetrics & Gynecology
DX: Z01.812 Encounter for preprocedural laboratory examination (principal); N93.9 Abnormal uterine and vaginal bleeding, unspecified
CPT/HCPCS: 80053; 84702; 85025

== ENCOUNTER 2023-05-17 07:02 | Day surgery (SDC) | payer OTHER, SELFPAY ==
[2023-05-12 15:55] VITALS: BMI 42.5
[2023-05-17] VITALS (10 sets, daily range): BP systolic 108–141; BP diastolic 62–101; PULSE 67–94; RESP 12–18; TEMP 36.1–43; O2SAT 88–98
--- NOTE | 2023-05-17 08:28 | EXP.ANES.CKL ---
[facility] Disclaimer: The information contained in this section may have been updated after the patient was seen, as this information can be updated by other users. 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 Fair ESW[facility] May 2021 (left stone) Hypertension Kidney stone Migraine Normal Pap smear Otitis media Otorrhea, bilateral Palpitations PCOS (polycystic ovarian syndrome) Vaccine reaction Surgical History H/O cystoscopy History of esophagogastroduodenoscopy (EGD) History of lithotripsy History of removal of ovarian cyst Family History Mother Breast cancer Father Family history of cardiomyopathy Family history of acute congestive heart failure Family history of diabetes mellitus type II Social History Smoking Status: Never smoker alcohol intake: never substance use type: denies use current occupational status: employed Travel in the last 8 weeks: None household members: spouse housing: house number of children: 0 current occupation: RN current occupational exposures/hazards: No caffeine: Yes [facility] Anesthesia Checklist Patient Identification Patient Identification: Verbal (Name & ) Structural Data Admitted From: Home Planned Operative Procedure/s: dx laparoscopy Consent for Planned Operative Procedure(s) Verified: Yes NPO Status Verified Time NPO: 00:00 Additional verifications Anesthesia Reactions: No Hx Blood Transfusions: No Blood Transfusion Reaction: No Airway Assessment C-Spine Mobility Assessed: Yes TMJ Mobility Assessed: Yes Dentition: Good Dentition Neurological Assessment Level of Consciousness: Awake, Alert and Appropriate Anesthesia Plan Anesthesia Risk discussed: Yes Anesthesia Plan: Verified ASA Class: III Anesthesia Type: General
--- NOTE | 2023-05-17 10:35 | EXP.ANES.I ---
[facility] [place] Anesthesia Record Part I Anesthesia Record I Intake, IV Amount: 1,600 Estimated blood loss (mL): 0 Urine output (mL): 0 Blood Pressure: 124/81 SaO2: 95 Pulse Rate: 84 Respiratory Rate: 12 Temperature: 97.5 F Patient is:: Awake and Stable Stable to PACU at:: 10:45
--- NOTE | 2023-05-17 11:03 | EXP.OP.NOTE ---
Date of procedure: 05/17/23 Pre-op Diagnosis:: 1. Chronic pelvic pain 2. RLQ pain 3. Abnormal uterine bleeding 4. History of endometriosis 5. PCOS Post-op Diagnosis:: 1. Chronic pelvic pain 2. RLQ pain 3. Abnormal uterine bleeding 4. History of endometriosis 5. PCOS 6. Stage 1 endometriosis of pelvic peritoneum Procedure performed:: Diagnostic laparoscopy, fulguration of endometrial implants Surgeon:: Anh Jones DO Social Media Specialist(s):: N/a SCUDDING INSPECTOR:: James Santos Anesthesia: GETA Estimated blood loss (mL): 0 Clinical Note:: Mrs. Diane Jennings is a 33 yo P0010 who presents for preop visit. She complains of worsening abdominal pain. Pain is all across her lower abdomen. Pain is daily and increases with intercourse, periods and BM. She has PCOS. She had 6 rounds of IUI at [facility]. LMP 05/11/23. Period is very heavy and painful today. Last period prior to this was January.?She has been trying to conceive for over 3 years. Operative findings:: 1. On bimanual exam, uterus normal size and shape, midposition. No adnexal masses palpated 2. On laparoscopic exam, grossly normal appearing liver, gallbladder and bowel. Grossly normal appearing uterus, bilateral fallopian tubes and bilateral ovaries. Powder burn endometrial implants noted on peritoneum over left uterosacral ligament and small powder burn endometrial implant on peritoneum of posterior cul-de-sac. No adhesion. Operative note:: Risks, benefits and alternatives were discussed with the patient. Risks include but are not limited to bleeding, infection, damage to adjacent structures and VTE. Patient voiced understanding and agreed to proceed with surgery. She was wheeled back to the operating room and placed under general anesthesia without difficulty. She was placed in the dorsal lithotomy position and prepped and draped in normal sterile fashion. A straight catheter was used to drain the bladder. A bimanual exam was performed. A weighted Auvard was placed in the vaginal vault. A single tooth tenaculum was placed on the anterior lip of the cervix. Harbor manipulator was inserted into the cervical canal and attached to the tenaculum. Weighted Auvard was removed from the vagina. Attention was then drawn to the abdomen. A 1.5 cm infraumbilical incision was made. Veress needle was tested and inserted intraabdominally without difficulty. Opening pressure of 7 mm Hg. Abdomen was then insulflated to 15 mm Hg. Trocar was inserted through infraumbilical incision and laparoscope was inserted. Abdomen was viewed in its entirety. See findings above. Pictures were taken. Left lower quadrant was transilluminated. 5 mm incision was made and 5 mm disposable blunt trocar was inserted into the abdomen under direct laparoscopic visualization. Trocar was removed and sleeve was left in place. Right lower quadrant was transilluminated. A 5 mm incision was made and a 5 mm disposable trocar was inserted into the abdomen under direct laparoscopic visualization. Obturator was removed and sleeve was left in place. Monopolar scissors were used to fulgurate endometrial implants on peritoneum of left uterosacral ligament as well as endometrial implant on peritoneum in posterior cul-de-sac. Pelvis was irrigated with clear return of fluids. Pictures were taken. Left lower quadrant trocar was removed under direct laparoscopic visualization. Right lower quadrant trocar was removed under direct laparoscopic visualization. Pneumoperitoneum was released into the atmosphere. Infraumbilical trocar was removed under direct laparoscopic visualization to ensure no herniation of bowel or omentum. Skin incisions were closed with 3-0 Vicryl. Dermabond was applied over closed skin incisions. All instruments were removed from the vagina. Tenaculum site was noted to be hemostatic. F Patient was cleaned and placed into the dorsal supine position. She awoke from anesthesia without difficulty. She was transported to the recovery room in stable condition. She wa
--- NOTE | 2023-05-24 07:37 | P.PNANES_ITS ---
[facility] Anesthesia Record Part II Anesthesia Record Part II Discharge Time: 11:05 Destination: Surgical Day Care (OP Surgery) PACU nurse assessment reviewed?: Yes Patient Condition:: Good Anesthesia Complications:: None Swallowing reflex intact?: Yes Cyanosis?: No Blood Pressure: 116/71 Pulse Rate: 72 Temperature: 98 F Mental Status: Alert & Oriented Pain level:: 3 Nausea and/or vomitting:: None Intake, IV Amount: 0
[2023-05-24 07:38] VITALS: BP 116/71; PULSE 72; TEMP 36.6
== END 2023-05-17 11:55 | disposition home or self-care (01) ==
PROVIDERS: PCP Nurse Practitioner Family; Visit Provider Obstetrics & Gynecology
PROC: (CPT 49320; principal; 2023-05-17 08:45)
DX: N80.30 Endometriosis of pelvic peritoneum, unspecified (principal); E28.2 Polycystic ovarian syndrome; N93.9 Abnormal uterine and vaginal bleeding, unspecified; R10.2 Pelvic and perineal pain; G89.29 Other chronic pain; R10.31 Right lower quadrant pain
CPT/HCPCS: 58662; J2405; J2710

== ENCOUNTER 2023-07-14 11:44 | Emergency (ER) | payer OTHER, SELFPAY ==
[2023-07-14] VITALS (8 sets, daily range): BP systolic 132–150; BP diastolic 76–95; PULSE 68–109; RESP 20; TEMP 36.8; O2SAT 97–100; BMI 45.6
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
--- NOTE | 2023-07-14 12:32 | HMH.EDGENADL ---
Discharge Plan Disposition Patient Disposition: Home, Self-Care Condition: Fair Prescriptions Prescriptions: No Action coenzyme Q10 [Co Q-10] 400 mg capsule 800 mg PO DAILY metformin 500 mg tablet extended release 24 hr 500 mg PO TIDWMEAL Qty: 90 2RF Classic 28 mg iron- 800 mcg tablet 1 tab PO .qd omega-3 fatty acids-fish oil [Fish Oil] 360-1,200 mg capsule 1 cap PO DAILY labetalol 100 mg tablet 100 mg PO BID 30 Days Qty: 60 5RF sertraline 100 mg tablet 200 mg PO HS 30 Days Qty: 60 5RF Ubrelvy 100 mg tablet 100 mg PO ONCE MDD 2 tabs per day PRN (Reason: migraines) Qty: 30 0RF pantoprazole 40 mg tablet,delayed release (DR/EC) 40 mg PO BID 90 Days Qty: 180 4RF promethazine 25 mg tablet See Rx Instructions .ROUTE .COMPLEX Qty: 20 0RF Dose Instruction: TAKE ONE TABLET BY MOUTH EVERY 6 HOURS NEEDED FOR NAUSEA AND VOMITING MAY CAUSE DROWSINESS Rx Instructions: TAKE ONE TABLET BY MOUTH EVERY 6 HOURS NEEDED FOR NAUSEA AND VOMITING MAY CAUSE DROWSINESS ondansetron 4 mg tablet,disintegrating See Rx Instructions .ROUTE .COMPLEX Qty: 30 0RF Dose Instruction: DISSOLVE ONE TABLET in MOUTH EVERY 8 HOURS NEEDED FOR NAUSEA AND VOMITING Rx Instructions: DISSOLVE ONE TABLET in MOUTH EVERY 8 HOURS NEEDED FOR NAUSEA AND VOMITING Myfembree 40-1-0.5 mg tablet 1 tab PO DAILY Referrals Follow up/Referrals: Ann-Marie Kelley APRN [Primary Care Provider] - See instructions Activity Restrictions/Add. Instructions Additional Instructions/Restrictions: Rest for the next few days. We believe you have a concussion. Continue taking all home medications as prescribed. You can also take Tylenol and ibuprofen if needed. Drink plenty of water. Avoid eyestrain. Any activity that causes headache should be avoided. Follow-up with your primary care physician in the next 2 days for reevaluation and further concussion management recommendations. Please return to the emergency department immediately with any new or worsening symptoms. Clinical Impressions Clinical Impression: Concussion Qualifiers: Encounter type: initial encounter Loss of consciousness presence/duration: without LOC Qualified Code(s): S06.0X0A - Concussion without loss of consciousness, initial encounter Instructions Patient Instructions: DI for Concussion, Concussion, DI for Postconcussion Syndrome Discharge ED Provider: Eros Pearson General Adult HPI General Chief complaint: Headache Stated complaint: [id number], head pain Time Seen by Provider: 07/14/23 12:29 Mode of Arrival: Ambulatory Source of Information: Patient Limitations: No Limitations Description of Symptoms (Recalled from ER Triage Doc. by RN): pt to ed c/o right sided headache. pt reports sweeping in the pantry on wednesday, and a can good falling on her head. pt states she has gradually developed a headache and today has started vomiting. pt denies LOC. History of Present Illness HPI narrative: This 33-year-old female presents to the emergency with headache. Patient states a large can fell on her head on Wednesday and she has had progressive headache since that time. Today she is not having nausea and vomiting. She denies loss of consciousness, no blood thinners, patient has no history of bleeding disorder. Patient states she has history of migraines and takes Ubrelvy as needed but it is not offering relief at this time. She states she has floaters in the right eye which have been progressive as well. She still has vision intact, denies numbness, tingling, weakness. Related Data Home Medications Medication Instructions Recorded Confirmed omega-3 fatty acids-fish oil 360 1 cap PO DAILY Supplement 01/28/23 07/14/23 mg-1,200 mg capsule (Fish Oil) vits no.126-ferrous fum 1 tab PO .qd Supplement 01/28/23 07/14/23 28 mg iron-folic acid 800 mcg tablet (Classic ) relugolix 40 mg-estr
--- NOTE | 2023-07-14 13:00 | PC.NURSE ---
checked on pt received a warm blanket,call light at bs
[2023-07-14 13:16] LABS: HCG Qualitative, Serum Negative (Negative)
--- NOTE | 2023-07-14 14:43 | PC.NURSE ---
pt received a warm blanket nothing else needed,call light at bs
== END 2023-07-14 15:54 | disposition home or self-care (01) ==
PROVIDERS: Emergency Provider Emergency Medicine; PCP Nurse Practitioner Family
DX: S06.0X0A Concussion without loss of consciousness, initial encounter (principal); I10 Essential (primary) hypertension; K21.9 Gastro-esophageal reflux disease without esophagitis; F41.9 Anxiety disorder, unspecified; F32.A Depression, unspecified; W20.8XXA Other cause of strike by thrown, projected or falling object, initial encounter; R11.2 Nausea with vomiting, unspecified
CPT/HCPCS: 70450; 84703; 96374; 96375; 99284; J2405

== ENCOUNTER → 2023-07-19 07:48 | Outpatient (CLI) | payer OTHER, SELFPAY ==
--- NOTE | 2023-07-19 07:58 | FL_ITS ---
FINAL REPORT CLINICAL HISTORY: pcos/ infertility FINDINGS: HYSTEROSALPINGOGRAPHY S & I Total of 168 images from a hysterosalpingogram were submitted. Contrast was injected into the endometrial cavity. There is contrast spillage from the bilateral fallopian tubes consistent with patent bilateral fallopian tubes. IMPRESSION: Patent bilateral fallopian tubes. Reviewed, Interpreted and Dictated by Quinton Sidhu III, MD Transcribed by Nora Vieyra Authenticated and [facility]
[2023-07-19 08:49] LABS: Basophils % 0.5 % (0.1-2.0); Eosinophils # 0.2 K/mm3 (0.0-0.4); Eosinophils % 2.3 % (0.1-12.0); Hematocrit 39.1 % (37.0-47.0); Hemoglobin 12.7 g/dL (12.2-16.2); Mean Corpuscular HGB Conc 32.5 g/dL (31.8-35.4); Mean Corpuscular Volume 80.1 fl (81-99); Mean Platelet Volume 8.1 fl (7.4-10.4); Monocytes # 0.3 K/mm3 (0.1-1.0); Neutrophils # 4.1 K/mm3 (1.8-7.8); Neutrophils % 62.2 % (37.0-80.0); Platelet Count 347 K/mm3 (142-424); Red Blood Count 4.88 M/mm3 (4.20-5.40); Red Cell Distribution Width 15.4 % (11.5-17.5); White Blood Count 6.6 K/mm3 (4.8-10.8)
--- NOTE | 2023-07-19 08:49 | P.PCN_ITS ---
[facility] Procedure Note Date: 07/19/23 Time: 08:49 Procedure Note:: Patient was positioned in the dorsal lithotomy position. Speculum was inserted. Cervix and vagina was cleansed with betadine swabs x 3. Tenaculum was placed on anterior lip of the cervix. 20 cc of contrast was drawn up into a syringe and attached to the [employer] HSG cannula. Contrast was flushed through cannula to remove air bubbles and ensure patency. Cannula was then inserted into the cervix. Fluoroscopy was initiated with 5cc of contrast injected into the endometrial cavity. Fluoroscopy demonstrated contrast immediately flowing from endometrial cavity through bilateral fallopian tubes revealing patent bilateral fallopian tubes. Cannula was removed from the cervix. Tenaculum was removed from the cervix. Small amount of oozing noted from right tenaculum site. Pressure applied to tenaculum site with sponge stick. Reevaluation of tenaculum site demonstrated hemostasis. Speculum removed from the vagina. Patient tolerated the procedure well.
[2023-07-19 09:10] LABS: Hemoglobin A1C 5.4 % (4.0-6.0)
[2023-07-19 09:18] LABS: Alanine Aminotransferase 31 U/L (12-78); Albumin/Globulin Ratio 1.3 (1.1-1.8); Alkaline Phosphatase 119 U/L (38-126); Anion Gap 15.2 mEq/L (5-15); Aspartate Amino Transferase 27 U/L (14-36); Bilirubin,Total 0.2 mg/dl (0.2-1.3); Blood Urea Nitrogen 13 mg/dl (7-17); Calcium 8.8 mg/dl (8.4-10.2); Carbon Dioxide 22 mmol/L (22.0-30.0); Chloride 105 mmol/L (98-107); Estimated Glomerular Filt Rate 117 ml/min (>60); GFR (African American) 141 ML/MIN (>60); Globulin 3.2 g/dL (1.3-3.2); Glucose 90 mg/dl (74-100); Potassium 4.2 mmoL/L (3.5-5.1); Sodium 138 mmol/L (136-145); Total Protein,Serum 7.2 g/dl (6.3-8.2)
[2023-07-19 09:35] LABS: 25-OH Vitamin D, Total 24.7 ng/mL (30-100)
[2023-07-19 09:48] LABS: Thyroid Stimulating Hormone 2.45 uIU/mL (0.465-4.68)
[2023-07-20 06:52] LABS: Rubella Antibodies, IgG 3.74 index (Immune >0.99); Varicella Zoster IgG <135 index (Immune >165)
[2023-07-20 08:02] LABS: HCV Ab Non Reactive (Non Reactive); HIV Screen 4th Generation wRfx Non Reactive (Non Reactive); Hep B Core Ab, Total Negative (Negative); Hep Be Ag Negative (Negative)
[2023-07-20 08:18] LABS: Prolactin 18.1 ng/mL (4.8-23.3); Testosterone,Total 31 ng/dL (8-60)
[2023-07-20 14:45] LABS: Rapid Plasma Reagin Ab Titer Non Reactive (NonRea<1:1)
[2023-07-28 08:18] LABS: Anti Mullerian Hormone (AMH) 1.24
== END | disposition home or self-care (01) ==
PROVIDERS: PCP Nurse Practitioner Family; Visit Provider Obstetrics & Gynecology
DX: E28.2 Polycystic ovarian syndrome (principal); E55.9 Vitamin D deficiency, unspecified; Z31.41 Encounter for fertility testing; Z79.899 Other long term (current) drug therapy
CPT/HCPCS: 36415; 74740; 80053; 82306; 82397; 83036; 84146; 84403; 84443; 85025; 86593; 86703; 86704; 86762; 86787; 86900; 86901; 87350; G0432; Q9967

== ENCOUNTER → 2023-08-20 15:18 | Outpatient (CLI) | payer OTHER, SELFPAY ==
[2023-08-20 15:34] LABS: Basophils # 0.1 K/mm3 (0-0.2); Basophils % 0.5 % (0.1-2.0); Eosinophils # 0.2 K/mm3 (0.0-0.4); Eosinophils % 1.7 % (0.1-12.0); Hematocrit 37.7 % (37.0-47.0); Hemoglobin 12.1 g/dL (12.2-16.2); Lymphocytes # 2.4 K/mm3 (0.7-4.5); Lymphocytes % 26.8 % (10-50); Mean Corpuscular Hemoglobin 25.7 pg (27.0-31.2); Mean Corpuscular Volume 80.2 fl (81-99); Mean Platelet Volume 7.7 fl (7.4-10.4); Monocytes # 0.4 K/mm3 (0.1-1.0); Monocytes % 4.2 % (1.7-9.3); Neutrophils # 5.9 K/mm3 (1.8-7.8); Neutrophils % 66.7 % (37.0-80.0); Platelet Count 378 K/mm3 (142-424); Red Cell Distribution Width 15.4 % (11.5-17.5); White Blood Count 8.8 K/mm3 (4.8-10.8)
[2023-08-20 15:55] LABS: Chloride 108 mmol/L (98-107); Potassium 3.7 mmoL/L (3.5-5.1); Sodium 141 mmol/L (136-145)
[2023-08-20 15:57] LABS: Blood Urea Nitrogen 13 mg/dl (7-17); Estimated Glomerular Filt Rate 98 ml/min (>60); GFR (African American) 118 ML/MIN (>60)
[2023-08-20 15:58] LABS: Alanine Aminotransferase 31 U/L (12-78); Albumin Level 3.7 g/dl (3.5-5.0); Albumin/Globulin Ratio 1.3 (1.1-1.8); Alkaline Phosphatase 96 U/L (38-126); Anion Gap 10.7 mEq/L (5-15); Aspartate Amino Transferase 27 U/L (14-36); Calcium 8.6 mg/dl (8.4-10.2); Carbon Dioxide 26 mmol/L (22.0-30.0); Globulin 2.9 g/dL (1.3-3.2); Glucose 107 mg/dl (74-100); Total Protein,Serum 6.6 g/dl (6.3-8.2)
[2023-08-20 16:05] LABS: Bilirubin,Total 0.1 mg/dl (0.2-1.3)
[2023-08-20 16:17] LABS: HCG,Quantitative < 2 mIU/ml (0-5.42)
== END ==
PROVIDERS: PCP Nurse Practitioner Family; Visit Provider Obstetrics & Gynecology
DX: Z01.419 Encounter for gynecological examination (general) (routine) without abnormal findings (principal); E28.2 Polycystic ovarian syndrome; N97.9 Female infertility, unspecified
CPT/HCPCS: 36415; 80053; 84702; 85025

== ENCOUNTER 2023-08-25 06:36 | Day surgery (SDC) | payer OTHER, SELFPAY ==
[2023-08-20 11:50] VITALS: BMI 47.0
[2023-08-25] VITALS (12 sets, daily range): BP systolic 105–147; BP diastolic 70–93; PULSE 74–93; RESP 14–18; TEMP 36.1–36.3; O2SAT 83–99
--- NOTE | 2023-08-25 07:03 | EXP.ANES.CKL ---
[facility] Disclaimer: The information contained in this section may have been updated after the patient was seen, as this information can be updated by other users. 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 Depression Endometriosis determined by laparoscopy Family history of breast cancer in mother Foot pain, bilateral History of anemia History of gastroesophageal reflux (GERD) History of nephrolithiasis Hypertension Kidney stone Migraine Otitis media Otorrhea, bilateral Palpitations PCOS (polycystic ovarian syndrome) Urinary tract infection Surgical History H/O cystoscopy History of esophagogastroduodenoscopy (EGD) History of lithotripsy History of removal of ovarian cyst S/P laparoscopy Family History Mother Breast cancer Father Family history of cardiomyopathy Family history of acute congestive heart failure Family history of diabetes mellitus type II Social History Smoking Status: Never smoker alcohol intake: never substance use type: denies use current occupational status: employed Travel in the last 8 weeks: Inside the [place] household members: spouse housing: house number of children: 0 current occupation: RN current occupational exposures/hazards: No caffeine: Yes [facility] Anesthesia Checklist Patient Identification Patient Identification: Arm Band and Verbal (Name & ) Structural Data Admitted From: Home Planned Operative Procedure/s: Hyst/D & C/Novasure/Myosure Consent for Planned Operative Procedure(s) Verified: Yes NPO Status Verified Time NPO: 00:00 Chart Verification Results Verified: CBC, BMP and HCG Additional verifications Patient : No Anesthesia Reactions: No Hx Blood Transfusions: No Blood Transfusion Reaction: No Airway Assessment Mallampati Score:: Class I C-Spine Mobility Assessed: Yes TMJ Mobility Assessed: Yes Dentition: Good Dentition Neurological Assessment Level of Consciousness: Awake Hx Seizures: No Numbness or tingling in extremities: No Anesthesia Plan Anesthesia Risk discussed: Yes Anesthesia Plan: Verified ASA Class: III Anesthesia Type: General
--- NOTE | 2023-08-25 08:04 | EXP.ANES.I ---
[facility] Anesthesia Record Part I Anesthesia Record I Intake, IV Amount: 800 Hydration: Adequate Estimated blood loss (mL): 0 Urine output (mL): 0 Blood Products used (#): none Blood Pressure: 147/93 SaO2: 94 Pulse Rate: 84 Airway Patency: Patent Respiratory Rate: 16 Temperature: 97 F Patient is:: Drowsy and Stable Stable to PACU at:: 08:00
--- NOTE | 2023-08-25 08:32 | P.OP_ITS ---
Date of procedure: 08/25/23 Pre-op Diagnosis:: 1. Uterine synechiae on saline sonogram 2. PCOS 3. Desires Post-op Diagnosis:: 1. Uterine synechiae on saline sonogram 2. PCOS 3. Desires Procedure performed:: 1. Hysteroscopy, Dilation and Myosure curettage Surgeon:: Anh Jones DO Hooker Inspector(s):: N/a MANAGER CCU:: Robert Boo Anesthesia: GETA Estimated blood loss (mL): 0 Clinical Note:: Mrs Diane Jennings is a very pleasant P0000 who presents for scheduled procedure. She is trying to conceive. She is receiving care from [facility] in [place]. They performed a saline sonogram that demonstrated synechiae at right side of uterine cavity. They recommended a hysteroscopy be performed. Diane would like to proceed with hysteroscopy at [facility]. Operative findings:: 1. On bimanual exam, uterus midposition, normal size and shape. No adnexal masses palpated 2. On hysteroscopic exam, right tubal ostia easily visualized, left tubal ostia not well visualized secondary to fluffy endometrial tissue. 3. Moderate amount of flufffy endometrial tissue noted, no masses or polyps appreciated Operative note:: Risks, benefits and alternatives were discussed with the patient. Risks include but are not limited to bleeding, infection, uterine perforation and VTE. Patient voiced understanding and agreed to proceed. She was wheeled back to the operating room and placed under general anesthesia without difficulty. She was placed in dorsal lithotomy position and prepped and draped in the normal sterile fashion. Straight catheter was used to drain the bladder. A bimanual exam was performed. A weighted Auvard was placed in the vaginal vault. Single tooth tenaculum was placed on anterior lip of the cervix. Uterus sounded to 8. Sequential Zeke dilators were used to dilate the cervical os. Hysteroscope was inserted through the cervix without difficulty. Endometrial cavity was evaluated. See findings above. Pictures were taken. Myosure was inserted through the hysteroscope. Myosure curettage was performed per protocol in a 360 degree fashion under direct visualization. A moderate amount of tissue was obtained. Pictures were taken. Hysteroscope with Myosure was removed. Instruments were removed from the vagina. Tenaculum site was hemostatic Patient was awaken from anesthesia without difficulty. She was transported to recovery room in stable condition. Patient will be discharged home when awake and ambulating. She was given postop instructions as well as instructions to follow-up in the office in 2 weeks. Condition: stable Disposition: same day Specimens:: 1. Endometrial curettings Complications:: None
--- NOTE | 2023-08-25 10:40 | P.PNANES_ITS ---
[facility] Anesthesia Record Part II Anesthesia Record Part II Discharge Time: 08:50 Destination: Surgical Day Care (OP Surgery) PACU nurse assessment reviewed?: Yes Patient Condition:: Good Anesthesia Complications:: None Swallowing reflex intact?: Yes Airway Patency: Patent Cyanosis?: No Blood Pressure: 144/85 SaO2: 83 Respiratory Rate: 15 Pulse Rate: 83 Temperature: 97.4 F Mental Status: Alert & Oriented Pain level:: 5 Nausea and/or vomitting:: None Intake, IV Amount: 0 Hydration: Adequate
== END 2023-08-25 09:35 | disposition home or self-care (01) ==
PROVIDERS: PCP Nurse Practitioner Family; Visit Provider Obstetrics & Gynecology
PROC: (CPT 58558; principal; 2023-08-25 07:30)
DX: N85.6 Intrauterine synechiae (principal); E28.2 Polycystic ovarian syndrome; Z31.89 Encounter for other procreative management
CPT/HCPCS: 58558; J2405

== ENCOUNTER → 2023-10-05 15:13 | Outpatient (CLI) | payer OTHER, SELFPAY ==
[2023-10-05 15:53] LABS: Hemoglobin A1C 5.3 % (4.0-6.0)
[2023-10-05 16:04] LABS: Chloride 105 mmol/L (98-107)
[2023-10-05 16:05] LABS: Sodium 138 mmol/L (136-145)
[2023-10-05 16:08] LABS: Blood Urea Nitrogen 11 mg/dl (7-17); Calcium 8.8 mg/dl (8.4-10.2); Carbon Dioxide 26 mmol/L (22.0-30.0); Estimated Glomerular Filt Rate 84 ml/min (>60); GFR (African American) 101 ML/MIN (>60); Glucose 87 mg/dl (74-100)
== END ==
PROVIDERS: PCP Nurse Practitioner Family; Visit Provider Nurse Practitioner Family
DX: R53.83 Other fatigue (principal); E11.9 Type 2 diabetes mellitus without complications; Z79.84 Long term (current) use of oral hypoglycemic drugs
CPT/HCPCS: 36415; 80048; 83036

== ENCOUNTER → 2023-11-03 10:44 | Outpatient (CLI) | payer OTHER, SELFPAY ==
[2023-11-03 18:15] LABS: Adenovirus,PCR Not Detected (NotDetected); Coronavirus 19, PCR Not Detected (NotDetected); Coronavirus 229E Not Detected (NotDetected); Coronavirus NL63 Not Detected (NotDetected); Coronavirus OC43 Not Detected (NotDetected); Coronovirus HKU1,PCR Not Detected (NotDetected); Human Metapneumovirus Not Detected (NotDetected); Influenza A, PCR Not Detected (NotDetected); Influenza AH1, 2009 Not Detected (NotDetected); Influenza AH1, PCR Not Detected (NotDetected); Influenza AH3,PCR Not Detected (NotDetected); Influenza B, PCR Not Detected (NotDetected); Parainfluenza 1, PCR Not Detected (NotDetected); Parainfluenza 2, PCR Not Detected (NotDetected); Parainfluenza 3, PCR Not Detected (NotDetected); Parainfluenza 4, PCR Not Detected (NotDetected); Respiratory Syncytial Virus Not Detected (NotDetected); Rhinovirus/Enterovirus Not Detected (NotDetected)
== END ==
PROVIDERS: PCP Nurse Practitioner Family; Visit Provider Nurse Practitioner Family
DX: B97.89 Other viral agents as the cause of diseases classified elsewhere (principal); J98.8 Other specified respiratory disorders
CPT/HCPCS: 87581; 87632; 87635; 87798

== ENCOUNTER 2024-01-03 09:44 | Outpatient (CLI) | payer OTHER, SELFPAY ==
--- NOTE | 2024-01-03 10:01 | US_ITS ---
PROCEDURE: US TRANSVAGINAL CLINICAL INDICATION: ENCOUNTER FOR ART PROCEDURE COMPARISON: No exams were available for comparison FINDINGS: Transvaginal sonographic images of the pelvis were obtained. UTERUS: 6.5cm x 5.0cmx 3.8 cm anteverted then turned retroverted during the exam with a combined endometrial thickness of 5.7mm. There are several nabothian cysts within the cervix. LEFT OVARY: 1.8 cmx1.0cm with a volume of . Left ovary is difficult to see. There are 4 follicle that are measured, the largest is 0.57 cm. RIGHT OVARY: 3.3cmx 2.8 cmx1.5 cm with a volume of 7.5ml. There are 6 follicles measured on the right ovary. The dominant follicle measures 1.35 cm. There is trace fluid adjacent to the right ovary. Both ovaries are seen and appear normal. Doppler flow to both ovaries are seen. There is trace fluid in the cul-de-sac. IMPRESSION: 1. Anteverted uterus switching to retroverted during the exam. The endometrium is normal. 2. There are several small nabothian cysts in the cervix. 3. Both left and right ovaries are seen and appear normal. 4. There are 6 follicles measured on the right ovary and 4 follicles on the left ovary. 5. Trace fluid in the cul-de-sac. Dictated by: Phong Vera MD 01/03/2024 12:01 Phong Vera MD in [place] 01/03/2024 12:01
== END 2024-01-03 23:59 ==
PROVIDERS: PCP Nurse Practitioner Family; Visit Provider Obstetrics & Gynecology
DX: Z31.83 Encounter for assisted reproductive fertility procedure cycle (principal)
CPT/HCPCS: 76830

== ENCOUNTER 2024-01-05 14:56 | Outpatient (CLI) | payer OTHER, SELFPAY ==
--- NOTE | 2024-01-05 15:06 | US_ITS ---
PROCEDURE: US TRANSVAGINAL CLINICAL INDICATION: ENCOUNTER FOR ART PROCEDURE COMPARISON: No exams were available for comparison FINDINGS: Transvaginal sonographic images of the pelvis were obtained. UTERUS: 6.5cm x 4.9 cmx 3.5cm anteverted with a combined endometrial thickness of 6.4mm. There are several small nabothian cysts in the cervix. LEFT OVARY: 2.8 cmx1.8 cmx1.9cm with a volume of 5ml. There are 3 follicles on the left ovary measuring 0.6 cm-1.1 cm. RIGHT OVARY: 3.6 cmx 2.7 cmx1.7 cm with a volume of 8.8ml. There is a dominant follicle measuring 1.7 cm. There are at least 9 other small follicles measuring 0.4 cm-1.1 cm. Both ovaries are seen and appear normal. Doppler flow to both ovaries are seen. There is no fluid in the cul-de-sac. IMPRESSION: 1. Anteverted uterus normal in shape and size. The endometrium is 6.4 mm. 2. There are 10 follicles on the right ovary with a dominant follicle measuring 1.7 cm. The rest of the follicles are small measuring less than 1 cm in size. 3. There are 3 follicles on the left ovary the largest of which is 1.1 cm. 4. No fluid in the cul-de-sac. Dictated by: Phong Vera MD 01/06/2024 09:41 Phong Vera MD in [facility] 01/06/2024 09:41
== END 2024-01-05 23:59 ==
LOC: RAD 14:57
PROVIDERS: PCP Nurse Practitioner Family; Visit Provider Obstetrics & Gynecology
DX: Z31.83 Encounter for assisted reproductive fertility procedure cycle (principal)
CPT/HCPCS: 76830

== ENCOUNTER 2024-01-07 08:52 | Outpatient (CLI) | payer OTHER, SELFPAY ==
--- NOTE | 2024-01-07 08:55 | US_ITS ---
PROCEDURE: US TRANSVAGINAL CLINICAL INDICATION: ENCOUNTER FOR ART PROCEDURE COMPARISON: US US TRANSVAGINAL from 01/03/2024 US US TRANSVAGINAL from 01/05/2024 FINDINGS: Transvaginal sonographic images of the pelvis were obtained. UTERUS: 6.8 cm x 3.4cm anteverted with a combined endometrial thickness of 9.6mm. There are multiple small nabothian cysts in the cervix. LEFT OVARY: 3.3 cmx1.9 cmx2.0cm with a volume of 6.5ml. Located behind the uterus. Difficult to see clearly. There are less follicles on the left ovary today. Two follicles are seen measuring 0.9 cm and 0.4 cm. RIGHT OVARY: 4.6 cmx 3.2cmx1.9 cm with a volume of 14ml. There are 9 follicles in the right ovary and they have all increased in size over the last 2 days. They range in size from 0.8 cm to 1.5 cm. Both ovaries are seen and appear normal. Doppler flow to both ovaries are seen. There is no fluid in the cul-de-sac. IMPRESSION: 1. Anteverted uterus normal in shape and size. 2. There are 9 follicles on the right ovary that have increased in size over the last 48 hours. They range in size from 0.8 cm to 1.5 cm. 3. The left ovary has 2 small follicles measuring 0.9 cm and 0.4 cm. 4. No fluid in the cul-de-sac. Dictated by: Phong Vera MD 01/07/2024 10:14 Phong Vera MD in [place] 01/07/2024 10:14
== END 2024-01-07 23:59 ==
LOC: RAD 08:52
PROVIDERS: PCP Nurse Practitioner Family; Visit Provider Obstetrics & Gynecology
DX: Z31.83 Encounter for assisted reproductive fertility procedure cycle (principal)
CPT/HCPCS: 76830

== ENCOUNTER 2024-01-10 09:29 | Outpatient (CLI) | payer OTHER, SELFPAY ==
--- NOTE | 2024-01-10 09:37 | US_ITS ---
PROCEDURE: US TRANSVAGINAL CLINICAL INDICATION: ENCOUNTER FOR ART PROCEDURE COMPARISON: US US TRANSVAGINAL from 01/05/2024 US US TRANSVAGINAL from 01/07/2024 FINDINGS: Transvaginal sonographic images of the pelvis were obtained. UTERUS: 7.4cm x 5.3 cmx 3.8 cm retroverted with a combined endometrial thickness of 9.3 mm. There are multiple small nabothian cysts within the cervix. LEFT OVARY: 9llb6htd2.6cm with a volume of 3.6ml. There are 2 follicles on the left ovary. Follicle 1. 0.79 cm Follicle 2. 1.16 cm RIGHT OVARY: 4 cm length There are 12 follicles on the right ovary. Follicle 1. 1.06 cm Follicle 2. 1.13 cm Follicle 3. 0.57 cm Follicle 4. 1.24 cm Follicle 5. 0.77 cm Follicle 6. 2.17 cm Follicle 7. 1.75 cm Follicle 8. 1.15 cm Follicle 9. 1.05 cm Follicle 10. 1.13 cm Follicle 11. 0.72 cm Follicle 12. 1.26 cm Both ovaries are seen. Doppler flow to both ovaries are seen. There is trace fluid inferior to the right ovary. IMPRESSION: 1. Retroverted uterus normal in shape and size. The endometrium appears normal. 2. The endometrium has a homogeneous appearance. 3. There are 12 follicles on the right ovary and measurements are included in the dictation. 4. The left ovary has 2 small follicles. 5. There is trace fluid adjacent to the right ovary. Dictated by: Phong Vera MD 01/10/2024 12:22 Phong Vera MD in [place] 01/10/2024 12:22
== END 2024-01-10 23:59 ==
LOC: RAD 09:31
PROVIDERS: PCP Nurse Practitioner Family; Visit Provider Obstetrics & Gynecology
DX: Z31.83 Encounter for assisted reproductive fertility procedure cycle (principal)
CPT/HCPCS: 76830

== ENCOUNTER 2024-01-12 09:47 | Outpatient (CLI) | payer OTHER, SELFPAY ==
--- NOTE | 2024-01-12 09:52 | US_ITS ---
PROCEDURE: US TRANSVAGINAL CLINICAL INDICATION: ENCOUNTER FOR ART PROCEDURE COMPARISON: US US TRANSVAGINAL from 01/03/2024 US US TRANSVAGINAL from 01/05/2024 US US TRANSVAGINAL from 01/07/2024 US US TRANSVAGINAL from 01/10/2024 FINDINGS: Transvaginal sonographic images of the pelvis were obtained. UTERUS: 7.2cm x 5.4cmx 3.7 cm anteverted with a combined endometrial thickness of 9.9 mm. There are multiple small nabothian cysts in the cervix. The endometrium has a trilaminar appearance today. LEFT OVARY: 2.5cmx2.1cmx1.6cm with a volume of 4.4ml. There are 2 follicles in the left ovary. Follicle 1. Measures 1.26 cm Follicle 2. Measures 1.64 cm RIGHT OVARY: 5.7 cmx3.2cm There are 11 follicles in the right ovary. Follicle 1. Measures 2.01 cm Follicle 2. Measures 0.94 cm Follicle 3. Measures 1.43 cm Follicle 4. Measures 1.22 cm Follicle 5. Measures 1.38 cm Follicle 6. Measures 1.47 cm Follicle 7. Measures 1.7 cm Follicle 8. Measures 1.99 cm Follicle 9. Measures 1.42 cm Follicle 10. Measures 1.25 cm Follicle 11. Measures 1.22 cm Both ovaries are seen and appear normal. Doppler flow to both ovaries are seen. There is no fluid in the cul-de-sac. IMPRESSION: 1. Anteverted uterus normal in shape and size. 2. The endometrium has a trilaminar appearance today. 3. The right ovary contains 11 follicles. See the body of this report for follicular sizes. 4. The left ovary contains 2 follicles. 5. No fluid in the cul-de-sac. Dictated by: Phong Vera MD 01/12/2024 11:10 Phong Vera MD in [facility] 01/12/2024 11:10
== END 2024-01-12 23:59 ==
LOC: RAD 09:48
PROVIDERS: PCP Nurse Practitioner Family; Visit Provider Obstetrics & Gynecology Reproductive Endocrinology
DX: Z31.83 Encounter for assisted reproductive fertility procedure cycle (principal); E28.9 Ovarian dysfunction, unspecified
CPT/HCPCS: 76830

== ENCOUNTER 2024-02-17 08:55 | Outpatient (CLI) | payer OTHER, SELFPAY ==
--- NOTE | 2024-02-17 09:17 | CT_ITS ---
FINAL REPORT TECHNIQUE: Pre-and postcontrast axial CT images of the abdomen and pelvis were obtained. Coronal reformatted images were also obtained and reviewed. This study was performed with techniques to keep radiation doses as low as reasonably achievable (ALARA). Individualized dose reduction techniques using automated exposure control or adjustment of mA and/or kV according to the patients' size were employed. CLINICAL HISTORY: r/o renal stone, left flank pain COMPARISON: 06/05/2021 FINDINGS: The lung bases are clear. The liver is normal in size and attenuation. The gallbladder is present. The spleen is unremarkable. The adrenals are normal. The pancreas is unremarkable. There are small nonobstructing stones in both kidneys measuring up to 2 to 3 mm. There is a subcentimeter cyst in the lower pole of the right kidney. There is a large amount of stool in the cecum and ascending colon. The uterus is present in the midline. There are small cysts or follicles in the right ovary. IMPRESSION: Bilateral nonobstructing kidney stones. Large stool burden in the cecum and ascending colon. Reviewed, Interpreted and Dictated by Chente Hernandez MD Transcribed by Brina Mcneal Authenticated and [facility]
[2024-02-17 09:30] LABS: Blood Urea Nitrogen 12 mg/dl (7-17); Estimated Glomerular Filt Rate 144 ml/min (>60); GFR (African American) 174 ML/MIN (>60)
[2024-02-17] MEDS: IOPAMIDOL-370 (76%);100ML BOTTLE 75 ML IV (10:02)
== END 2024-02-17 23:59 ==
LOC: RAD 08:55
PROVIDERS: PCP Nurse Practitioner Family; Visit Provider Nurse Practitioner Family
DX: R10.9 Unspecified abdominal pain (principal); R31.9 Hematuria, unspecified
CPT/HCPCS: 36415; 74178; 82565; 84520; Q9967

== ENCOUNTER 2024-04-03 10:01 | Outpatient (CLI) | payer OTHER, SELFPAY ==
--- NOTE | 2024-04-03 10:06 | US_ITS ---
PROCEDURE: US TRANSVAGINAL CLINICAL INDICATION: OVARIAN DYSFUNCTION COMPARISON: US US TRANSVAGINAL from 01/03/2024 US US TRANSVAGINAL from 01/05/2024 US US TRANSVAGINAL from 01/07/2024 US US TRANSVAGINAL from 01/10/2024 US US TRANSVAGINAL from 01/12/2024 FINDINGS: Transvaginal sonographic images of the pelvis were obtained. UTERUS: 6.8 cm x 5.0cmx 3.6 cm anteverted with a combined endometrial thickness of 6.8mm. There are multiple small nabothian cysts in the cervix. The largest measures 0.67 cm. There is a small cluster of nabothian cysts in the lower uterine segment. LEFT OVARY: 5wdv0fuj2.2cm with a volume of 3.3ml. Follicle 1. 0.38 cm Follicle 2. 0.80 cm Follicle 3. 0.61 cm Follicle 4. 0.36 cm Follicle 5. 0.35 cm RIGHT OVARY: 3cmx [id number] with a volume of 9.2ml. Follicle 1. 0.59 cm Follicle 2. 0.55 cm Follicle 3. 0.77 cm Follicle 4. 0.65 cm. Follicle 5. 0.59 cm Follicle 6. 0.46 cm Follicle 7. 0.54 cm Follicle 8. 0.32 cm Follicle 9. 0.50 cm Follicle 10. 0.51 cm Both ovaries are seen and appear normal. Doppler flow to both ovaries are seen. There is no fluid in the cul-de-sac. IMPRESSION: 1. Anteverted uterus normal in shape and size. The endometrium is thin. 2. There are 5 small follicles on the left ovary. 3. There are 10 small follicles on the right ovary. 4. No fluid in the cul-de-sac. Dictated by: Phong Vera MD 04/03/2024 14:25 Phong Vera MD in [facility] 04/03/2024 14:25
--- NOTE | 2024-04-03 14:35 | US_ITS ---
FINAL REPORT CLINICAL HISTORY: multiple thyroid nodules, worsening dysphagia FINDINGS: Sonographic images of the thyroid gland were obtained. The right thyroid lobe measures 49 mm in length. The left thyroid lobe measures 50 mm in length. The thyroid isthmus measures 2 mm. The echogenicity is normal. Multiple nodules are noted. The largest on the right is cystic and solid measuring 5 x 4 x 4 mm, isoechoic TR 2. The largest on the left measures 8 x 6 x 4 mm is solid and hypoechoic, TR 4. IMPRESSION: Multiple nodules as above. No follow-up required per TI-RADS criteria. Reviewed, Interpreted and Dictated by Quinton Sidhu III, MD Transcribed by Brina Mcneal Authenticated and [facility]
== END 2024-04-03 23:59 | disposition home or self-care (01) ==
LOC: RAD 10:01
PROVIDERS: PCP Nurse Practitioner Family; Visit Provider Obstetrics & Gynecology Reproductive Endocrinology
DX: E04.2 Nontoxic multinodular goiter (principal); R13.10 Dysphagia, unspecified; E28.9 Ovarian dysfunction, unspecified; Z31.83 Encounter for assisted reproductive fertility procedure cycle
CPT/HCPCS: 76536; 76830

== ENCOUNTER 2024-04-10 09:28 | Outpatient (CLI) | payer OTHER, SELFPAY ==
--- NOTE | 2024-04-10 09:41 | US_ITS ---
PROCEDURE: US TRANSVAGINAL CLINICAL INDICATION: FERTILITY COMPARISON: US US TRANSVAGINAL from 04/03/2024 FINDINGS: Transvaginal sonographic images of the pelvis were obtained. UTERUS: 7.2cm x 5.2cmx 4.2cm anteverted with a combined endometrial thickness of 9.4mm. There continue be multiple small nabothian cysts in the cervix. LEFT OVARY: 2.5cmx1.8 cmx1.6cm with a volume of 3.7ml. Follicle 1. 0.5 cm Follicle 2. 0.44 cm RIGHT OVARY: 3.2cmx 2.7 cmx2.0cm with a volume of 9.1ml. Follicle 1. 0.51 cm Follicle 2. 0.54 cm Follicle 3. 0.44 cm Follicle 4. 0.62 cm Follicle 5. 0.58 cm Both ovaries are seen and appear normal. Doppler flow to both ovaries are seen. There is no fluid in the cul-de-sac. IMPRESSION: 1. Anteverted uterus normal in shape and size. The endometrium is 9.4 mm. 2. The right ovary has 5 follicles. 3. The left ovary has 2 follicles. 4. No fluid in the cul-de-sac. Dictated by: Phong Vera MD 04/10/2024 11:46 Phong Vera MD in [facility] 04/10/2024 11:46
== END 2024-04-10 23:59 | disposition home or self-care (01) ==
LOC: RAD 09:28
PROVIDERS: PCP Obstetrics & Gynecology Reproductive Endocrinology; Visit Provider Obstetrics & Gynecology Reproductive Endocrinology
DX: Z31.83 Encounter for assisted reproductive fertility procedure cycle (principal)
CPT/HCPCS: 76830

== ENCOUNTER 2024-04-27 10:59 | Outpatient (CLI) | payer OTHER, SELFPAY ==
[2024-04-27 12:01] LABS: HCG Qualitative, Serum Negative (Negative); HCG,Quantitative < 2 mIU/ml (0-5.42)
== END 2024-04-27 23:59 | disposition home or self-care (01) ==
LOC: LAB 10:59
PROVIDERS: PCP Nurse Practitioner Family; Visit Provider Nurse Practitioner Family
DX: Z31.9 Encounter for procreative management, unspecified (principal); E28.2 Polycystic ovarian syndrome
CPT/HCPCS: 36415; 84702; 84703

== ENCOUNTER 2024-05-17 18:39 | Emergency (ER) | payer OTHER, SELFPAY ==
[2024-05-17 18:50] VITALS: BP 144/103; PULSE 128; RESP 23; TEMP 37.6; O2SAT 99; BMI 47.2
--- NOTE | 2024-05-17 18:54 | ED_ITS ---
Discharge Plan Disposition Patient Disposition: Home, Self-Care Condition: Good Prescriptions Prescriptions: New azithromycin 250 mg tablet See Rx Instructions .ROUTE .COMPLEX Qty: 6 0RF Rx Instructions: For 250 mg dose pack: take 500 mg today (day 1), then 250 mg for 4 days (days 2-5) methylprednisolone [Medrol (Abhishek)] 4 mg tablets,dose pack See Rx Instructions .ROUTE .COMPLEX 6 Days Qty: 21 0RF Rx Instructions: 4 mg orally ;Medrol dose taper abhishek benzonatate 100 mg capsule 100 mg PO TID PRN (Reason: cough) Qty: 30 0RF No Action sertraline 100 mg tablet 200 mg PO HS 30 Days Qty: 60 5RF Prenate Mini (ferr asp glycin) 18-1-350 mg capsule 1 cap PO DAILY Qty: 90 4RF metformin 500 mg tablet extended release 24 hr 2,000 mg PO DAILY Qty: 120 6RF labetalol 100 mg tablet 100 mg PO BID Qty: 180 3RF Referrals Follow up/Referrals: Ann-Marie Kelley APRN [Primary Care Provider] - See instructions Activity Restrictions/Add. Instructions Additional Instructions/Restrictions: Call tomorrow morning for x-ray results. Increase fluid and rest. Take blood pressure medication when you get home. Follow up with PCP. Clinical Impressions Clinical Impression: Upper respiratory tract infection Qualifiers: URI type: unspecified URI Qualified Code(s): J06.9 - Acute upper respiratory infection, unspecified Stand Alone Forms Stand Alone Forms: Work/School Release Instructions Patient Instructions: Acute Bronchitis Discharge ED Provider: Leola Ma [facility] General Stated complaint: sore throat, ino Time Seen by Provider: 05/17/24 18:54 History of Present Illness Provider Complaint: Pt reports that she has been sick for 2 weeks. She reports completing a round of Amoxicillin on Wednesday. She states that her phlegm color has changed to green and she has had a fever of 102.4 that she has been treating it with Tylenol/Motrin. pt reports that she has laid in bed all day today and has not taken her blood pressure pill. She reports that she will become very SOA when going to the bathroom. Related Data Previous Rx's Medication Instructions Recorded sertraline 100 mg tablet 200 mg (2 x 100 mg) PO HS MOOD 30 01/28/23 days #60 tabs Prenate Mini (ferrous asparto 1 cap PO DAILY #90 caps 10/20/23 glycinate) 18 mg-1 mg-350 mg capsule ( vit 28-cfqn-btlyz-dha) metformin 500 mg tablet,extended 2,000 mg (4 x 500 mg) PO DAILY 04/07/24 release 24 hr PCOS #120 tabs labetalol 100 mg tablet 100 mg PO BID High blood pressure 04/20/24 #180 tabs azithromycin 250 mg tablet See Rx Instructions PO .COMPLEX #6 05/17/24 tabs benzonatate 100 mg capsule 100 mg PO TID PRN cough #30 caps 05/17/24 methylprednisolone 4 mg tablets in See Rx Instructions .Route 05/17/24 a dose pack (Medrol (Abhishek)) .COMPLEX 6 days #21 tabs Allergies Allergy/AdvReac Type Severity Reaction Status Date / Time No Known Allergies Allergy Verified 02/14/24 15:05 [facility] Disclaimer: The information contained in this section may have been updated after the benedict garay was seen, as this information can be updated by other users. Medical History (Updated 05/17/24 @ 19:20 by Leola Ma APRN) Right otitis media Viral respiratory illness Abdominal pain Hematuria Flank pain Patient desires Urinary tract infection History of anemia Endometriosis determined by laparoscopy Balanced chromosomal translocation Chronic bilateral lower abdominal pain Abnormal uterine bleeding Foot pain, bilateral Palpitations PCOS (polycystic ovarian syndrome) Otorrhea, bilateral Otitis media Acute otitis media with effusion Depression Anxiety Kidney stone History of gastroesophageal reflux (GERD) Migraine Hypertension History of nephrolithiasis Family history of breast cancer in mother Surgical History S/P laparoscopy History of lithotripsy History of removal of ovarian cyst H/O cystoscopy History of esophagogastroduodenoscopy (EGD) Family History Mother Breast cancer Father Family history of cardiomyopathy Family history of acute congestive heart failure Family history of diabetes mellitus type II Social History Smoking Status: Never smoker alcohol intake: never substance use type: denies use current occupational status: employed Travel in the last 8 weeks: [place] the [place] household members: spouse housing: house number of children: 0 current occupation: RN current occupational exposures/hazards: No caffeine: Yes ROS Obtained: Yes All systems reviewed & no additional complaints except as documented Constitutional Constitutional: Reports system reviewed and no additional complaints, except as documented, Reports fever(s), Reports headache(s), Reports lethargy and Reports malaise Eyes Eyes: Reports system reviewed and no additional complaints, except as documented ENT Ears, Nose, Mouth, and Throat: Reports system reviewed and no additional complaints, except as documented, Reports headache(s) and Reports nasal discharge Cardiovascular Cardiovascular: Reports system reviewed and no additional complaints, except as documented Respiratory Respiratory: Reports system reviewed and no additional complaints, except as documented, Reports shortness of breath, Reports change in phlegm color, Reports chest congestion, Reports cough and Reports cough with sputum production Gastrointestinal Gastrointestingal: Reports system reviewed and no additional complaints, except as documented Genitourinary Female Genitourinary: Reports system reviewed and no additional complaints, except as documented Musculoskeletal Musculoskeletal: Reports system reviewed and no additional complaints, except as documented Integumentary/Breasts Skin/Breast: Reports system reviewed and no additional complaints, except as documented Neurologic Neurologic: Reports system reviewed and no additional complaints, except as documented and Reports headache(s) Endocrine Endocrine: Reports system reviewed and no additional complaints, except as documented Hematologic/Lymphatic Henatologic/Lymphatic: Reports system reviewed and no additional complaints, except as documented Allergic/Immunologic Allergic/Immunologic: Reports system reviewed and no additional complaints, except as documented Physical Exam General General appearance: alert Comment: ill appearing Head Head exam: atraumatic and normocephalic Eye Eye exam: Present normal appearance ENT ENT exam: Present mucous membranes moist Expanded ENT Exam External ear exam: Present normal external inspection Nose exam: Absent sinus tenderness Nasal speculum exam: Bilateral: purulent discharge Mouth exam: Present normal external inspection Teeth exam: Present normal inspection Throat exam: Present tonsillar erythema Neck Neck exam: Present normal inspection; Absent lymphadenopathy Chest Chest inspection: Present normal inspection and symmetric chest wall rise Respiratory Respiratory exam: Present other (course sounds throughout) Cardiovascular Cardiovascular exam: Present normal rhythm, tachycardia and normal heart sounds Abdominal Exam Abdominal exam: Present soft and normal bowel sounds Extremities Exam Extremities exam: Present normal inspection Back Exam Back exam: Present normal inspection Neurological Exam Neurological exam: Present alert and oriented X3 Psychiatric Psychiatric exam: Present normal affect and normal mood Skin Skin exam: Present warm, dry and intact Lymphatic Lymphatic Findings: no adenopathy Medical Decision Making Farooq Inquiry Pt receiving controlled substance: No Farooq was queried for this patient: No
--- NOTE | 2024-05-17 19:05 | XR_ITS ---
PROCEDURE INFORMATION: Exam: XR Chest Exam date and time: 05/17/2024 7:09 PM Age: 34 years old Clinical indication: Cough TECHNIQUE: Imaging protocol: Radiologic exam of the chest. Views: 2 views. COMPARISON: CR CXR CHEST(2 VIEWS-NOT PORTABLE) 11/01/2017 11:23 AM FINDINGS: Lungs: Normal pulmonary expansion. Pulmonary vasculature grossly normal. No gross pulmonary infiltrates or edema pattern. Pleural spaces: No pleural effusion. No pneumothorax. Heart/Mediastinum: Heart size normal. No tracheal/mediastinal shift. Bones/joints: No acute osseous abnormalities are identified. Mild thoracic spondylosis. IMPRESSION: No acute thoracic process.
[2024-05-17 19:30] VITALS: BP 144/103; PULSE 128; RESP 23; TEMP 37.6; O2SAT 99
== END 2024-05-17 19:33 | disposition home or self-care (01) ==
PROVIDERS: Emergency Provider Nurse Practitioner Family; PCP Nurse Practitioner Family
DX: J20.9 Acute bronchitis, unspecified (principal); J06.9 Acute upper respiratory infection, unspecified
CPT/HCPCS: 71046; 99212; 99214; G0463

== ENCOUNTER 2024-06-02 15:33 | Emergency (ER) | payer OTHER, SELFPAY ==
--- NOTE | 2024-06-02 | XR_ITS ---
PROCEDURE INFORMATION: Exam: XR Chest Exam date and time: 06/02/2024 7:02 PM Age: 34 years old Clinical indication: Cough and shortness of breath TECHNIQUE: Imaging protocol: Radiologic exam of the chest. Views: 2 views. COMPARISON: CR XR CHEST 2V 05/17/2024 7:09 PM FINDINGS: Lungs: Normal. Pleural spaces: Normal. No pleural effusion. No pneumothorax. Heart/Mediastinum: Normal. No cardiomegaly. Bones/joints: Unremarkable. IMPRESSION: No acute findings.
[2024-06-02 15:55] VITALS: BP 146/83; PULSE 95; RESP 20; TEMP 36.8; O2SAT 100; BMI 47.1
[2024-06-02 16:25] VITALS: BP 146/83; PULSE 95; RESP 20; TEMP 36.8; O2SAT 100
--- NOTE | 2024-06-02 16:25 | EXP.UTC ---
Discharge Plan Disposition Patient Disposition: Home, Self-Care Condition: Good Prescriptions Prescriptions: New cephalexin 500 mg capsule 500 mg PO QID Qty: 40 0RF methylprednisolone 4 mg Tablets,Dose Pack 4 mg PO DIRECTED 6 Days Qty: 21 0RF Rx Instructions: Take 1 pack as directed for 6 days [id number]-[id number] [Bromfed DM] 2-30-10 mg/5 mL Syrup 5 ml PO Q6H PRN (Reason: Cough) Qty: 240 0RF No Action sertraline 100 mg tablet 200 mg PO HS 30 Days Qty: 60 5RF Prenate Mini (ferr asp glycin) 18-1-350 mg capsule 1 cap PO DAILY Qty: 90 4RF metformin 500 mg tablet extended release 24 hr 2,000 mg PO DAILY Qty: 120 6RF labetalol 100 mg tablet 100 mg PO BID Qty: 180 3RF Referrals Follow up/Referrals: Ann-Marie Kelley APRN [Primary Care Provider] - See instructions Activity Restrictions/Add. Instructions Additional Instructions/Restrictions: Drink plenty of fluids. Take tylenol or ibuprofen for pain or fever. Take the medications as directed. Follow up with your regular doctor. GO TO THE ER FOR ANY WORSENING SYMPTOMS Clinical Impressions Clinical Impression: Acute bronchitis Instructions Patient Instructions: Acute Bronchitis, DI for Acute Bronchitis Discharge ED Provider: Lucas Dang [facility] General Stated complaint: SOA, cough Mode of Arrival: Ambulatory Source of Information: Patient Limitations: No Limitations Time Seen by Provider: 06/02/24 16:25 Description of Symptoms (Recalled from Triage Doc. by RN): PATIENT C/O SOA AND NON-PRODUCTIVE COUGH X 3 WEEKS HEENT Symptoms (Recalled from RN notes): No Resp Symptoms (Recalled from RN notes): Yes Skin Symptoms (Recalled from RN notes): No MS Symptoms (Recalled from RN notes): No Functional Status (Recalled from RN notes): WNL Related Data Previous Rx's Medication Instructions Recorded sertraline 100 mg tablet 200 mg (2 x 100 mg) PO HS MOOD 30 01/28/23 days #60 tabs Prenate Mini (ferrous asparto 1 cap PO DAILY #90 caps 10/20/23 glycinate) 18 mg-1 mg-350 mg capsule ( vit 12-jqys-ipbiw-dha) metformin 500 mg tablet,extended 2,000 mg (4 x 500 mg) PO DAILY 04/07/24 release 24 hr PCOS #120 tabs labetalol 100 mg tablet 100 mg PO BID High blood pressure 04/20/24 #180 tabs rrotihnbsvdcbrx-cjyysqrbdeetkhh-RN 5 ml PO Q6H PRN Cough #240 mL 06/02/24 2 mg-30 mg-10 mg/5 mL oral syrup (Bromfed DM) cephalexin 500 mg capsule 500 mg PO QID #40 caps 06/02/24 methylprednisolone 4 mg tablets in 4 mg PO DIRECTED 6 days #21 tabs 06/02/24 a dose pack Allergies Allergy/AdvReac Type Severity Reaction Status Date / Time No Known Allergies Allergy Verified 02/14/24 15:05 Worker's Comp Is this a Worker's Comp case?: No [facility] Disclaimer: The information contained in this section may have been updated after the patient was seen, as this information can be updated by other users. Medical History (Updated 06/02/24 @ 16:29 by Lucas Dang APRN) Right otitis media Viral respiratory illness Abdominal pain Hematuria Flank pain Patient desires Urinary tract infection History of anemia Endometriosis determined by laparoscopy Balanced chromosomal translocation Chronic bilateral lower abdominal pain Abnormal uterine bleeding Foot pain, bilateral Palpitations PCOS (polycystic ovarian syndrome) Otorrhea, bilateral Otitis media Acute otitis media with effusion Depression Anxiety Kidney stone History of gastroesophageal reflux (GERD) Migraine Hypertension History of nephrolithiasis Family history of breast cancer in mother Surgical History S/P laparoscopy History of lithotripsy History of removal of ovarian cyst H/O cystoscopy History of esophagogastroduodenoscopy (EGD) Family History Mother Breast cancer Father Family history of cardiomyopathy Family history of acute congestive heart failure Family history of diabetes mellitus type II Social History Smoking Status: Never smoker alcohol intake: never substance use type: denies use current occupational status: employed Travel in the last 8 weeks: [place] the [place] household members: spouse housing: house number of children: 0 current occupation: RN current occupational exposures/hazards: No caffeine: Yes ROS Obtained: Yes All systems reviewed & no additional complaints except as documented Constitutional Constitutional: Reports poor appetite Eyes Eyes: Reports system reviewed and no additional complaints, except as documented ENT Ears, Nose, Mouth, and Throat: Reports as per HPI Cardiovascular Cardiovascular: Reports system reviewed and no additional complaints, except as documented and Denies chest pain Respiratory Respiratory: Denies shortness of breath, Reports chest congestion, Reports cough, Denies stridor and Denies wheezing Gastrointestinal Gastrointestingal: Reports system reviewed and no additional complaints, except as documented; Denies abdominal pain, diarrhea or vomiting Musculoskeletal Musculoskeletal: Reports system reviewed and no additional complaints, except as documented and Denies arthralgias Integumentary/Breasts Skin/Breast: Reports system reviewed and no additional complaints, except as documented and Denies rash Neurologic Neurologic: Denies paresthesias Allergic/Immunologic Allergic/Immunologic: Denies wheezing Physical Exam General General appearance: alert and in no apparent distress Eye Eye exam: Present normal appearance, PERRL and EOMI ENT ENT exam: Present mucous membranes moist and normal external ear exam Expanded ENT Exam External ear exam: Present normal external inspection TM/Canal exam: Bilateral TM: erythema and bulging Nose exam: Absent sinus tenderness Nasal speculum exam: Bilateral: normal Mouth exam: Present normal external inspection; Absent drooling Teeth exam: Present normal inspection Throat exam: Present tonsillar erythema and tonsillomegaly Neck Neck exam: Present normal inspection, full ROM and trachea midline; Absent tenderness, lymphadenopathy or thyromegaly Chest Chest inspection: Present normal inspection and symmetric chest wall rise; Absent tenderness or rash Respiratory Respiratory exam: Present normal lung sounds bilaterally; Absent respiratory distress, wheezes, stridor or accessory muscle use Cardiovascular Cardiovascular exam: Present regular rate, normal rhythm and normal heart sounds Abdominal Exam Abdominal exam: Present soft; Absent distention, tenderness, guarding, rebound or rigidity Extremities Exam Extremities exam: Present normal inspection, full ROM and normal capillary refill; Absent tenderness or calf tenderness Back Exam Back exam: Present normal inspection and full ROM; Absent tenderness Neurological Exam Neurological exam: Present alert and oriented X3 Psychiatric Psychiatric exam: Present normal affect and normal mood Skin Skin exam: Present warm, dry, intact and normal color Lymphatic Lymphatic Findings: no adenopathy Medical Decision Making Medical Records Medical records reviewed: No I reviewed the patient's medical records. Farooq Inquiry Pt receiving controlled substance: No Vital Signs: 06/02/24 15:55 Temperature 98.3 F Temperature Source Oral Pulse Rate [Left Brachial] 95 H Respiratory Rate 20 Blood Pressure [Left Arm] 146/83 H Blood Pressure Mean [Left Arm] 104 Blood Pressure Source [Left Arm] Automatic Cuff Blood Pressure Position [Left Arm] Sitting 02 Sat by Pulse Oximetry 100 Oxygen Delivery Method Room Air
--- NOTE | 2024-06-02 16:30 | PC.NURSE ---
WHILE PATIENT WAS BEING SEEN IN [facility], SHE WAS CALLED INTO WORK AND HAD TO LEAVE. CHEST X-RAY NEEDED, SO OUTPATENT ORDER WRITTEN FOR PATIENT TO OBTAIN CHEST X-RAY WHEN FINISHED WORKING
== END 2024-06-02 16:28 | disposition home or self-care (01) ==
PROVIDERS: Emergency Provider Nurse Practitioner Family; PCP Nurse Practitioner Family
DX: J20.9 Acute bronchitis, unspecified (principal); R06.02 Shortness of breath; R05.9 Cough, unspecified
CPT/HCPCS: 71046; 99212; 99214; G0463

== ENCOUNTER 2024-08-10 16:54 | Outpatient (CLI) | payer OTHER, SELFPAY ==
[2024-08-10 16:39] LABS: Adenovirus,PCR Not Detected (NotDetected); Bordetella Pertussis Not Detected (NotDetected); Chlamydophila Pneumoniae, PCR Not Detected (NotDetected); Coronavirus 19, PCR Not Detected (NotDetected); Coronavirus 229E Not Detected (NotDetected); Coronavirus NL63 Not Detected (NotDetected); Coronavirus OC43 Not Detected (NotDetected); Coronovirus HKU1,PCR Not Detected (NotDetected); Human Metapneumovirus Not Detected (NotDetected); Influenza A, PCR Not Detected (NotDetected); Influenza AH1, 2009 Not Detected (NotDetected); Influenza AH1, PCR Not Detected (NotDetected); Influenza AH3,PCR Not Detected (NotDetected); Influenza B, PCR Not Detected (NotDetected); Mycoplasma Pneumoniae, PCR Not Detected (NotDetected); Parainfluenza 1, PCR Not Detected (NotDetected); Parainfluenza 2, PCR Not Detected (NotDetected); Parainfluenza 3, PCR Not Detected (NotDetected); Parainfluenza 4, PCR Not Detected (NotDetected); Respiratory Syncytial Virus Not Detected (NotDetected); Rhinovirus/Enterovirus Not Detected (NotDetected)
== END 2024-08-10 23:59 | disposition home or self-care (01) ==
LOC: LAB.DROPOF 16:55
PROVIDERS: PCP Nurse Practitioner Family; Visit Provider Nurse Practitioner Family
DX: R06.02 Shortness of breath (principal); R05.9 Cough, unspecified
CPT/HCPCS: 87265; 87486; 87581; 87632; 87635

== ENCOUNTER 2024-09-22 07:24 | Outpatient (CLI) | payer OTHER, SELFPAY ==
--- NOTE | 2024-09-22 07:24 | US_ITS ---
PROCEDURE INFORMATION: Exam: US Abdomen, Limited; Right Upper Quadrant Exam date and time: 09/22/2024 7:20 AM Age: 34 years old Clinical indication: Abdominal pain; Acute; Additional info: Ruq pain TECHNIQUE: Imaging protocol: Real time ultrasound of the abdomen with image documentation. Limited exam focused on the right upper quadrant. COMPARISON: CT ABDOMEN PELVIS WO/W CON 02/17/2024 9:38 AM FINDINGS: Limitations: Exam is limited secondary to large body habitus. Liver: Mildly increased hepatic echogenicity suggestive of fatty infiltration versus diffuse hepatocellular disease. No focal hepatic lesion or dilated intrahepatic ducts. Gallbladder: Mild faint dependent sludge suggested within nondistended gallbladder. No gallbladder wall thickening or pericholecystic fluid. Biliary ducts: Common bile duct measures 2.7 mm in diameter. Pancreas: Visualized pancreas is unremarkable. Right kidney: No acute abnormality. No mass. No hydronephrosis. IMPRESSION: 1. Mildly increased hepatic echogenicity suggestive of fatty infiltration versus diffuse hepatocellular disease. 2. Mild faint dependent sludge suggested within nondistended gallbladder.
== END 2024-09-22 23:59 | disposition home or self-care (01) ==
LOC: RAD 07:24
PROVIDERS: PCP Nurse Practitioner Family; Visit Provider Surgery
DX: R10.11 Right upper quadrant pain (principal)
CPT/HCPCS: 76705

== ENCOUNTER 2024-10-17 09:52 | Outpatient (CLI) | payer OTHER, SELFPAY ==
[2024-10-17 10:34] LABS: Basophils # 0.1 K/mm3 (0-0.2); Basophils % 0.6 % (0.1-2.0); Eosinophils # 0.1 K/mm3 (0.0-0.4); Eosinophils % 1.5 % (0.1-12.0); Hematocrit 38.5 % (37.0-47.0); Hemoglobin 13.3 g/dL (12.2-16.2); Lymphocytes # 2.2 K/mm3 (0.7-4.5); Lymphocytes % 27.9 % (10-50); Mean Corpuscular HGB Conc 34.5 g/dL (31.8-35.4); Mean Corpuscular Volume 81.4 fl (81-99); Mean Platelet Volume 7.5 fl (7.4-10.4); Monocytes # 0.4 K/mm3 (0.1-1.0); Monocytes % 4.9 % (1.7-9.3); Platelet Count 345 K/mm3 (142-424); Red Blood Count 4.73 M/mm3 (4.20-5.40); Red Cell Distribution Width 15.1 % (11.5-17.5); White Blood Count 7.7 K/mm3 (4.8-10.8)
[2024-10-17 11:36] LABS: 25-OH Vitamin D, Total 21.4 ng/mL (30-100)
[2024-10-17 11:51] LABS: Hemoglobin A1C 5.1 % (4.0-6.0)
[2024-10-17 13:22] LABS: Alanine Aminotransferase 36 U/L (12-78); Albumin Level 3.7 g/dl (3.5-5.0); Albumin/Globulin Ratio 1.4 (1.1-1.8); Alkaline Phosphatase 108 U/L (38-126); Anion Gap 12.2 mEq/L (5-15); Aspartate Amino Transferase 29 U/L (14-36); Bilirubin,Total 0.5 mg/dl (0.2-1.3); Blood Urea Nitrogen 13 mg/dl (7-17); Calcium 9.1 mg/dl (8.4-10.2); Carbon Dioxide 23 mmol/L (22.0-30.0); Chloride 108 mmol/L (98-107); Estimated Glomerular Filt Rate 97 ml/min (>60); GFR (African American) 117 ML/MIN (>60); Globulin 2.6 g/dL (1.3-3.2); Glucose 115 mg/dl (74-100); Potassium 4.2 mmoL/L (3.5-5.1); Sodium 139 mmol/L (136-145); Total Protein,Serum 6.3 g/dl (6.3-8.2)
[2024-10-18 08:22] LABS: Prolactin 21.9 ng/mL (4.8-33.4); Testosterone,Total 32 ng/dL (8-60); Varicella Zoster IgG Reactive (Non Reactive)
[2024-10-24 03:36] LABS: Anti Mullerian Hormone (AMH) 1.11 ng/mL (.)
== END 2024-10-17 23:59 | disposition home or self-care (01) ==
LOC: LAB 09:53
PROVIDERS: PCP Nurse Practitioner Family; Visit Provider Obstetrics & Gynecology
DX: E28.2 Polycystic ovarian syndrome (principal); Z31.9 Encounter for procreative management, unspecified
CPT/HCPCS: 36415; 80053; 82306; 82397; 83036; 84146; 84403; 85025; 86762; 86787

== ENCOUNTER 2025-04-09 15:00 | Emergency (ER) | payer OTHER, SELFPAY ==
[2025-04-09 16:27] VITALS: BMI 43.5
[2025-04-09 16:30] VITALS: BP 145/102; PULSE 84; RESP 18; TEMP 36.4; O2SAT 99; BMI 43.5
--- NOTE | 2025-04-09 16:39 | CT_ITS ---
PROCEDURE INFORMATION: Exam: CT Lumbar Spine Without Contrast Exam date and time: 04/09/2025 5:29 PM Age: 34 years old Clinical indication: Injury or trauma; Other: Pop, midline pain thoracolumbar area TECHNIQUE: Imaging protocol: Computed tomography of the lumbar spine without contrast. Radiation optimization: All CT scans at this facility use at least one of these dose optimization techniques: automated exposure control; mA and/or kV adjustment per patient size (includes targeted exams where dose is matched to clinical indication); or iterative reconstruction. COMPARISON: CT THORACIC SPINE WO CON 04/09/2025 5:26 PM FINDINGS: Bones/joints: No acute fracture. Soft tissues: Unremarkable. IMPRESSION: No evidence for acute fracture.
--- NOTE | 2025-04-09 16:39 | CT_ITS ---
PROCEDURE INFORMATION: Exam: CT Thoracic Spine Without Contrast Exam date and time: 04/09/2025 5:26 PM Age: 34 years old Clinical indication: Injury or trauma; Other: Pop, midline pain thoracolumbar area TECHNIQUE: Imaging protocol: Computed tomography of the thoracic spine without contrast. Radiation optimization: All CT scans at this facility use at least one of these dose optimization techniques: automated exposure control; mA and/or kV adjustment per patient size (includes targeted exams where dose is matched to clinical indication); or iterative reconstruction. COMPARISON: CT ABDOMEN PELVIS WO/W CON 02/17/2024 9:38 AM FINDINGS: Bones/joints: No acute fracture. Normal alignment. No significant disc bulge or herniation. No severe spinal canal stenosis. No significant neural foraminal narrowing. Soft tissues: Unremarkable. IMPRESSION: Unremarkable CT Spine.
--- NOTE | 2025-04-09 16:42 | HMH.ITSTN ---
called & requested preg test
--- NOTE | 2025-04-09 16:43 | ED_ITS ---
Discharge Plan Disposition Patient Disposition: Home, Self-Care Prescriptions Prescriptions: New methocarbamol 1,000 mg tablet 1,000 mg PO Q8H Qty: 21 0RF lidocaine 5 % adhesive patch,medicated 1 patch topical DAILY Qty: 15 0RF Rx Instructions: leave on most painful area for up to 12 hrs No Action Trelegy Ellipta 200-62.5-25 mcg blister with device 1 inh inhalation DAILY Qty: 60 5RF ascorbic acid (vitamin C) 500 mg tablet extended release 500 mg PO DAILY [id number]-loyvev 800 mcg-1 mg- 500 mcg-500 mcg capsule 1 cap PO DAILY promethazine-DM 6.25-15 mg/5 mL syrup 5 ml PO Q4-6H PRN (Reason: cough) Qty: 118 0RF pseudoephedrine HCl 30 mg tablet 60 mg PO Q6H PRN (Reason: nasal congestion) Qty: 30 0RF Rx Instructions: Start with one tablet per dose, may increase to two tabs per dose if needed. lorazepam 0.5 mg tablet 0.5 mg PO BID PRN (Reason: anxiety) Qty: 30 0RF sertraline 100 mg tablet 200 mg PO DAILY Qty: 60 2RF lamotrigine [Lamictal] 25 mg tablet 75 mg PO DAILY Qty: 90 0RF Prenate Mini (ferr asp glycin) 18-1-350 mg capsule 1 cap PO DAILY Qty: 90 4RF labetalol 100 mg tablet 100 mg PO BID Qty: 180 3RF triamcinolone acetonide 0.1 % cream 1 applic topical BID Qty: 15 1RF mupirocin 2 % ointment 1 applic topical BID Qty: 15 1RF cholecalciferol (vitamin D3) 1,250 mcg (50,000 unit) capsule 1,250 mcg PO WEEKLY Qty: 12 3RF ondansetron 4 mg tablet,disintegrating 4 mg PO Q8H PRN (Reason: nausea and vomiting) Qty: 30 2RF sulfamethoxazole-trimethoprim [Bactrim DS] 800-160 mg tablet 1 tab PO BID 5 Days Qty: 10 0RF Referrals Follow up/Referrals: Ann-Marie Kelley APRN [Primary Care Provider] - See instructions Activity Restrictions/Add. Instructions Additional Instructions/Restrictions: At this time it was felt you are safe to be discharged home. If new or worsening symptoms please do not hesitate to return the emergency department. Please take your medications as prescribed. Clinical Impressions Clinical Impression: Back pain Instructions Patient Instructions: DI for Low Back Pain Print Language Print Language: Serbian Discharge ED Provider: Jase Enrique General Adult HPI General Chief complaint: Back Pain/Injury Stated complaint: workers comp hurt back lifting patient Time Seen by Provider: 04/09/25 16:30 Mode of Arrival: Ambulatory Source of Information: Patient Description of Symptoms (Recalled from ER Triage Doc. by RN): pt states she was pushing a stretcher with an obese pt and twisted then she heard a pop. pt c/o middle back pain that is 7/10 and sharp/pulling in nature. 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 Patient was pushing a patient through the hospital when she felt a pop with severe midline thoracolumbar pain. Due to severity of symptoms she presents here for continued evaluation. Related Data Home Medications ?Medication ?Instructions ?Recorded ?Confirmed ascorbic acid (vitamin C) 500 mg 500 mg PO DAILY 08/10/24 02/21/25 tablet,extended release pkgvoeuy-nfp-hcvky acid 800 1 cap PO DAILY 08/10/24 02/21/25 mcg-coQ10 1 mg-lycop 500 mcg-luten capsule Previous Rx's ?Medication ?Instructions ?Recorded Prenate Mini (ferrous asparto 1 cap PO DAILY #90 caps 10/20/23 glycinate) 18 mg-1 mg-350 mg capsule ( vit [id number]-ydbu-ndekw-dha) labetalol 100 mg tablet 100 mg PO BID High blood pressure 04/20/24 #180 tabs fluticasone fur. 200 mcg-umeclid 1 inh inhalation DAILY #60 ea 06/05/24 62.5 mcg-vilant 25 mcg inhalat.powder (Trelegy Ellipta) mupirocin 2 % topical ointment 1 applic topical BID #15 grams 09/14/24 triamcinolone acetonide 0.1 % 1 applic topical BID #15 grams 09/14/24 topical cream cholecalciferol (vitamin D3) 1,250 1,250 mcg PO WEEKLY #12 caps 10/30/24 mcg (50,000 unit) capsule promethazine-DM 6.25 mg-15 mg/5 mL 5 ml PO Q4-6H PRN cough #118 mL 12/01/24 oral syrup pseudoephedrine HCl 30 mg tablet 60 mg (2 x 30 mg) PO Q6H PRN nasal 12/01/24 congestion #30 tabs lorazepam 0.5 mg tablet 0.5 mg PO BID PRN anxiety #30 tabs 12/20/24 ondansetron 4 mg disintegrating 4 mg PO Q8H PRN nausea and 12/21/24 tablet vomiting #30 tabs lamotrigine 25 mg tablet (Lamictal) 75 mg (3 x 25 mg) PO DAILY #90 tabs 02/21/25 sertraline 100 mg tablet 200 mg (2 x 100 mg) PO DAILY #60 02/21/25 tabs sulfamethoxazole 800 1 tab PO BID 5 days #10 tabs 02/21/25 mg-trimethoprim 160 mg tablet (Bactrim DS) lidocaine 5 % topical patch 1 patch topical DAILY back pain 04/09/25 #15 ea methocarbamol 1,000 mg tablet 1,000 mg PO Q8H back pain #21 tabs 04/09/25 Allergies Allergy/AdvReac Type Severity Reaction Status Date / Time prochlorperazine (From Allergy Other Verified 04/09/25 16:24 Compazine) [facility] Disclaimer: The information contained in this section may have been updated after the patient was seen, as this information can be updated by other users. Medical History Dysphagia Bilateral otitis media Viral respiratory illness Shortness of breath Abdominal pain Hematuria Flank pain Patient desires History of anemia Endometriosis determined by laparoscopy powder burn endometrial implants found on left uterosacral ligament and posterior cul-de-sac 04/2023 Balanced chromosomal translocation Chronic bilateral lower abdominal pain Abnormal uterine bleeding Foot pain, bilateral Palpitations PCOS (polycystic ovarian syndrome) Otorrhea, bilateral Otitis media Acute otitis media with effusion Depression Anxiety Kidney stone History of gastroesophageal reflux (GERD) Migraine Hypertension History of nephrolithiasis Dr. Fair ESWL May 2021 (left stone) Family history of breast cancer in mother diagnosed ~ age 57 from metastatic breast cancer Surgical History S/P laparoscopy stage 1 endometriosis found on exam 05/17/23 History of lithotripsy History of removal of ovarian cyst H/O cystoscopy History of esophagogastroduodenoscopy (EGD) Family History Mother Breast cancer Father Family history of cardiomyopathy Family history of acute congestive heart failure Family history of diabetes mellitus type II Social History Smoking Status: Never smoker alcohol intake: never substance use type: denies use current occupational status: employed Travel in the last 8 weeks?: Inside the [place] household members: spouse housing: house number of children: 0 current occupation: RN current occupational exposures/hazards: No caffeine: Yes Have you lived/traveled outside [place] in past 30 days?: No Contact w/someone who lives/traveled outside [place] past 30 days?: No Exposure to someone with infectious disease in past 14 days?: No Do you have a fever (greater than 100.4 F or 38 C)?: No Have you tested positive for COVID-19?: No Exposed to someone with COVID-19 in past 14 days?: No Do you have a sore throat?: No Do you have a cough?: No Do you have any weakness?: No Do you have any diarrhea?: No Are you experiencing any unusual bleeding?: No Do you have any muscle aches/pain?: No Do you have any abdominal pain?: No Are you experiencing loss of taste or smell?: No Other Medical History Have you received the Flu Vaccine for this season: Yes Have you received the Pneumonia Vaccine: No ROS Obtained: Yes Systems reviewed as appropriate & no additional complaints except as documented Physical Exam General General appearance: alert and in no apparent distress Head Head exam: atraumatic and normocephalic Eye Eye exam: Present PERRL and EOMI ENT ENT exam: Present mucous membranes moist Neck Neck exam: Present normal inspection Chest Chest inspection: Present normal inspection and symmetric chest wall rise Respiratory Respiratory exam: Present normal lung sounds bilaterally; Absent respiratory distress Cardiovascular Cardiovascular exam: Present regular rate and normal rhythm Abdominal Exam Abdominal exam: Present soft; Absent tenderness Extremities Exam Extremities exam: Present normal inspection Back Exam Back exam: Present tenderness (Midline thoracolumbar junction no obvious step- offs) Neurological Exam Neurological exam: Present alert Psychiatric Psychiatric exam: Present normal affect Skin Skin exam: Present warm and dry Medical Decision Making Medical Records Screening: Per USPSTF and CDC recommendations, given the prevalence of disease in our region, it is our hospital?s policy to screen for HIV and viral Hepatitis for all patients aged 18 and over and those with ongoing risk factors. [place] Inquiry Pt receiving controlled substance: No Vital Signs: 04/09/25 16:30 Temperature 97.6 F Temperature Source Oral Pulse Rate [Left] 84 Respiratory Rate 18 Blood Pressure [Right Arm] 145/102 H Blood Pressure Mean [Right Arm] 116 Blood Pressure Source [Right Arm] Automatic Cuff Blood Pressure Position [Right Arm] Sitting 02 Sat by Pulse Oximetry 99 Oxygen Delivery Method Room Air Orders (Tests/Meds): ED MEDICATIONS Discontinued Medications Generic Name Dose Route Start Last Admin Trade Name Freq PRN Reason Stop Dose Admin Acetaminophen 1,000 mg 04/09/25 16:42 04/09/25 18:46 Acetaminophen 500mg Tab PO 04/09/25 16:43 1,000 mg ONCE ONE Administration Ketorolac Tromethamine 30 mg 04/09/25 16:41 04/09/25 18:46 Ketorolac 30mg/Ml Vial IM 04/09/25 16:42 30 mg ONCE ONE Administration Lidocaine 1 each 04/09/25 16:39 04/09/25 18:47 Lidocaine 5% Transdermal Patch TD 04/09/25 16:40 1 each ONCE ONE Administration Methocarbamol 1,000 mg 04/09/25 16:42 04/09/25 18:46 Methocarbamol 500mg Tablet PO 04/09/25 16:43 1,000 mg ONCE ONE Administration ORDERS Category Date Time Status CT lumbar spine wo con Stat Cat Scan 04/09/25 16:[address] thoracic spine wo con Stat Cat Scan 04/09/25 16:39 Completed Medical Decision Narrative: In summary patient is a 34-year-old female with past medical history described above who presents emergency department for evaluation of back pain. Patient is hemodynamically stable nontoxic-appearing upon arrival, afebrile. Patient has midline tenderness I do not think that she has significant fracture however CT imaging is warranted. CT imaging will be conducted of the thoracolumbar spine. Initial inventions include multimodal pain control. CT imaging informally visualized by me, no acute significantly displaced fracture of the thoracolumbar spine vertebral bodies. Formal read shows no acute pathology. Patient is amatory bedsides appropriate outpatient management at this time will be discharged with a course of lidocaine patches and methocarbamol was given return precautions. Critical Care Critical Care Time Critical Care Time: No
--- NOTE | 2025-04-09 17:20 | HMH.ITSTN ---
per Shruthi Jarvis RN patient is refusing preg test, patient will sign papers to proceed without preg test
[2025-04-09] MEDS: METHOCARBAMOL 500MG TABLET 1000 MG PO (18:46)
[2025-04-09] MEDS: KETOROLAC 30MG/ML VIAL 30 MG IM (18:46)
[2025-04-09] MEDS: ACETAMINOPHEN 500MG TAB 1000 MG PO (18:46)
[2025-04-09] MEDS: LIDOCAINE 5% TRANSDERMAL PATCH 1 EACH TD (18:47)
--- NOTE | 2025-04-09 18:47 | PC.NURSE ---
Medications verified with Shruthi Judge RN. Unable to scan medications due to it being past due.
[2025-04-09 20:39] VITALS: BP 137/88; PULSE 85; RESP 16; TEMP 36.8; O2SAT 99
== END 2025-04-09 20:42 | disposition home or self-care (01) ==
PROVIDERS: Emergency Provider Emergency Medicine; PCP Nurse Practitioner Family
DX: M54.59 Other low back pain (principal); M54.6 Pain in thoracic spine; I10 Essential (primary) hypertension; E66.9 Obesity, unspecified; X50.0XXA Overexertion from strenuous movement or load, initial encounter
CPT/HCPCS: 72128; 72131; 96372; 99284; J1885

== ENCOUNTER 2025-04-29 14:22 | Observation (INO) | payer OTHER, SELFPAY ==
[2025-04-29] VITALS (13 sets, daily range): BP systolic 101–162; BP diastolic 58–123; PULSE 82–124; RESP 14–19; TEMP 36.7–37.6; O2SAT 94–98; BMI 41.8
--- NOTE | 2025-04-29 14:32 | US_ITS ---
PROCEDURE INFORMATION: Exam: US Duplex Artery or Vein of the Abdominal and/or Reproductive Organs, Limited Ovaries Exam date and time: 04/29/2025 3:11 PM Age: 35 years old Clinical indication: Abdominal pain and pelvic pain; Right lower quadrant; Additional info: Severe rlq pain h/o cysts TECHNIQUE: Imaging protocol: Real-time duplex ultrasound scan of the arterial or venous flow with montes scale, color Doppler flow and spectral waveform analysis with image documentation. Limited duplex exam focused on the ovaries. Duplex exam was performed to evaluate for torsion and other vascular conditions. COMPARISON: CT ABDOMEN PELVIS W CON 04/29/2025 3:10 PM FINDINGS: Right ovary/adnexa: Normal arterial or venous Doppler waveforms in the ovary. No ovarian torsion. Left ovary/adnexa: Normal arterial or venous Doppler waveforms in the ovary. No ovarian torsion. IMPRESSION: Normal duplex of the ovaries. No evidence of ovarian torsion. PROCEDURE INFORMATION: Exam: US Pelvis, Transvaginal, Non-Obstetric Exam date and time: 04/29/2025 3:11 PM Age: 35 years old Clinical indication: Abdominal pain and pelvic pain; Right lower quadrant; Additional info: Severe rlq pain h/o cysts TECHNIQUE: Imaging protocol: Real-time transvaginal pelvic (non-obstetric) ultrasound with image documentation. Transvaginal imaging was used for better evaluation of the endometrium, adnexa, and/or cervix. COMPARISON: US TRANSVAGINAL 04/10/2024 10:00 AM FINDINGS: Uterus: Uterus is normal. Endometrial stripe is normal. Uterus measures 7.1 x 3.8 x 5.2 cm. Endometrial stripe measures 3 mm. Multiple nabothian cysts. Right ovary/adnexa: Normal. No mass. Normal ovarian blood flow on color Doppler. Right ovary measures 3.1 x 2.5 x 1.6 cm. Rebound tenderness noted on the right when technologist put pressure to visualize the right ovary better. Left ovary/adnexa: Normal. No mass. Normal ovarian blood flow on color Doppler. Left ovary measures 2.3 x 2.0 x 1.3 cm. Urinary bladder: Urinary bladder is limited. Intraperitoneal space: Small amount of free fluid in the cul-de-sac. IMPRESSION: 1. Small amount of free fluid. Rebound tenderness noted on the right with pressure to visualize the right ovary of uncertain etiology. 2. Otherwise negative ultrasound of the pelvis.
--- NOTE | 2025-04-29 14:33 | CT_ITS ---
PROCEDURE INFORMATION: Exam: CT Abdomen And Pelvis With Contrast Exam date and time: 04/29/2025 3:10 PM Age: 35 years old Clinical indication: Abdominal pain; Localized; Right lower quadrant (rlq); Additional info: Severe rlq pain/fever/n/v TECHNIQUE: Imaging protocol: Computed tomography of the abdomen and pelvis with contrast. Radiation optimization: All CT scans at this facility use at least one of these dose optimization techniques: automated exposure control; mA and/or kV adjustment per patient size (includes targeted exams where dose is matched to clinical indication); or iterative reconstruction. Contrast material: ISOVUE; Contrast volume: 75 ml; Contrast route: IV; COMPARISON: CT ABDOMEN PELVIS WO/W CON 02/17/2024 9:38 AM FINDINGS: Lungs: Lung bases are clear. Liver: Normal. No mass. Gallbladder and biliary ducts: Normal. No calcified stones. No ductal dilation. Pancreas: Normal. No ductal dilation. Spleen: Normal. No splenomegaly. Adrenal glands: Stable 17 mm right adrenal nodule with a density of-[address] of 02/17/2024 compatible with adenoma. Kidneys and ureters: 2 mm nonobstructing left kidney stone. Incidental 10 mm fluid density lesion compatible with cyst in the inferior right kidney. No follow-up advised. Kidneys and ureters otherwise unremarkable with no obstructing stones or uropathy. Stomach and bowel: Unremarkable. No obstruction. No mucosal thickening. Appendix: Appendix is normal. No evidence of appendicitis. Intraperitoneal space: Unremarkable. No free air. No significant fluid collection. Vasculature: Unremarkable. No abdominal aortic aneurysm. Lymph nodes: Unremarkable. No enlarged lymph nodes. Urinary bladder: Unremarkable as visualized. Reproductive: Unremarkable as visualized. Bones/joints: Unremarkable. No acute fracture. Soft tissues: Unremarkable. IMPRESSION: No acute abnormalities of the abdomen and pelvis. Nonemergent findings as above. COMMENTS: Consistent with the [employer]'s Incidental Findings Committee white paper (J Am Arash Radiol 2018): Any incidental renal lesion less than 1 cm or classified as too small to characterize, or any incidental cystic renal lesion characterized as simple-appearing, is likely benign. No follow-up imaging is recommended for these lesions per consensus recommendations based on imaging criteria.
[2025-04-29] MEDS: ONDANSETRON 4MG/2ML VIAL 4 MG IV ×2 (14:34→20:14)
--- NOTE | 2025-04-29 14:35 | PC.NURSE ---
I spoke with Susana in radiology to call in US to rule out ovarian torsion.
--- NOTE | 2025-04-29 14:35 | HMH.EDGENADL ---
Discharge Plan Disposition Patient Disposition: Admitted Prescriptions Prescriptions: No Action ascorbic acid (vitamin C) 500 mg tablet extended release 500 mg PO DAILY [id number] 800 mcg-1 mg- 500 mcg-500 mcg capsule 1 cap PO DAILY lorazepam 0.5 mg tablet 0.5 mg PO BID PRN (Reason: anxiety) Qty: 30 0RF sertraline 100 mg tablet 200 mg PO DAILY Qty: 60 2RF lamotrigine [Lamictal] 25 mg tablet 75 mg PO DAILY Qty: 90 0RF Prenate Mini (ferr asp glycin) 18-1-350 mg capsule 1 cap PO DAILY Qty: 90 4RF triamcinolone acetonide 0.1 % cream 1 applic topical BID Qty: 15 1RF cholecalciferol (vitamin D3) 1,250 mcg (50,000 unit) capsule 1,250 mcg PO WEEKLY Qty: 12 3RF ondansetron 4 mg tablet,disintegrating 4 mg PO Q8H PRN (Reason: nausea and vomiting) Qty: 30 2RF methocarbamol 1,000 mg tablet 1,000 mg PO Q8H Qty: 21 0RF Referrals Follow up/Referrals: Ann-Marie Kelley APRN [Primary Care Provider, Family Practice] - See instructions Clinical Impressions Clinical Impression: Abdominal pain, RLQ, Hx of endometriosis Instructions Patient Instructions: DI for Acute Abdominal Pain Print Language Print Language: Citizen Of [place] Discharge ED Provider: Maricel Kee General Adult HPI <Maricel Kee DO - Last Filed: 04/29/25 15:25> General Chief complaint: Abdominal Pain Stated complaint: Cyst Rup. R Lower Abd pain, Weak, N/V Time Seen by Provider: 04/29/25 14:28 History of Present Illness HPI narrative: This patient is a 35-year-old female with a history of PCOS, prior kidney stones, and hypertension not currently on any medication presenting to the emergency department for evaluation with concern for severe right lower quadrant pain, low-grade fever, nausea, and vomiting. Patient reports that she woke up this morning with some lower abdominal pain and cramping in the right lower quadrant, but it was manageable. She came into work today because she was called in to do the surgery, at which point she collapsed onto the ground with severe right lower quadrant pain, nausea, and vomiting. She comes in in obvious distress secondary to pain. No other concerns or complaints noted such as changes in bowel movements or urinary symptoms. Of note, she has previously done IVF and fertility treatments, but has been a long time and she is not currently on any fertility medications. Related Data Home Medications ?Medication ?Instructions ?Recorded ?Confirmed ascorbic acid (vitamin C) 500 mg 500 mg PO DAILY 08/10/24 02/21/25 tablet,extended release fkyskmee-fxq-qkxmu acid 800 1 cap PO DAILY 08/10/24 02/21/25 mcg-coQ10 1 mg-lycop 500 mcg-luten capsule Previous Rx's ?Medication ?Instructions ?Recorded Prenate Mini (ferrous asparto 1 cap PO DAILY #90 caps 10/20/23 glycinate) 18 mg-1 mg-350 mg capsule ( vit [id number]-svtt-wvlyx-dha) triamcinolone acetonide 0.1 % 1 applic topical BID #15 grams 09/14/24 topical cream cholecalciferol (vitamin D3) 1,250 1,250 mcg PO WEEKLY #12 caps 10/30/24 mcg (50,000 unit) capsule lorazepam 0.5 mg tablet 0.5 mg PO BID PRN anxiety #30 tabs 12/20/24 ondansetron 4 mg disintegrating 4 mg PO Q8H PRN nausea and 12/21/24 tablet vomiting #30 tabs lamotrigine 25 mg tablet (Lamictal) 75 mg (3 x 25 mg) PO DAILY #90 tabs 02/21/25 sertraline 100 mg tablet 200 mg (2 x 100 mg) PO DAILY #60 02/21/25 tabs methocarbamol 1,000 mg tablet 1,000 mg PO Q8H back pain #21 tabs 04/09/25 Allergies Allergy/AdvReac Type Severity Reaction Status Date / Time prochlorperazine (From Allergy Other Verified 04/29/25 14:41 Compazine) [facility] <Maricel Kee DO - Last Filed: 04/29/25 15:25> [facility] Disclaimer: The information contained in this section may have been updated after the patient was seen, as this information can be updated by other users. Medical History Dysphagia Bilateral otitis media Viral respiratory illness Shortness of breath Abdominal pain Hematuria Flank pain Patient desires History of anemia Endometriosis determined by laparoscopy Balanced chromosomal translocation Chronic bilateral lower abdominal pain Abnormal uterine bleeding Foot pain, bilateral Palpitations PCOS (polycystic ovarian syndrome) Otorrhea, bilateral Otitis media Acute otitis media with effusion Depression Anxiety Kidney stone History of gastroesophageal reflux (GERD) Migraine Hypertension History of nephrolithiasis Family history of breast cancer in mother Surgical History S/P laparoscopy History of lithotripsy History of removal of ovarian cyst H/O cystoscopy History of esophagogastroduodenoscopy (EGD) Family History Mother Breast cancer Father Family history of cardiomyopathy Family history of acute congestive heart failure Family history of diabetes mellitus type II Social History Smoking Status: Never smoker alcohol intake: never substance use type: denies use current occupational status: employed Travel in the last 8 weeks?: Inside the [place] household members: spouse housing: house number of children: 0 current occupation: RN current occupational exposures/hazards: No caffeine: Yes Have you lived/traveled outside US in past 30 days?: No Contact w/someone who lives/traveled outside US past 30 days?: No Exposure to someone with infectious disease in past 14 days?: No Do you have a fever (greater than 100.4 F or 38 C)?: No Have you tested positive for COVID-19?: No Exposed to someone with COVID-19 in past 14 days?: No Do you have a sore throat?: No Do you have a cough?: No Do you have any weakness?: Yes Do you have any diarrhea?: No Are you experiencing any unusual bleeding?: No Do you have any muscle aches/pain?: No Do you have any abdominal pain?: Yes Are you experiencing loss of taste or smell?: No Other Medical History Have you received the Flu Vaccine for this season: Yes Have you received the Pneumonia Vaccine: No <Maricel Kee DO - Last Filed: 04/29/25 15:25> ROS Obtained: Yes All systems reviewed & no additional complaints except as documented Physical Exam <Maricel Kee DO - Last Filed: 04/29/25 15:25> General General appearance: alert Comment: Uncomfortable appearing Head Head exam: atraumatic and normocephalic Eye Eye exam: Present normal appearance, PERRL and EOMI ENT ENT exam: Present normal exam, normal oropharynx, mucous membranes moist and normal external ear exam Neck Neck exam: Present normal inspection, full ROM and trachea midline; Absent tenderness Chest Chest inspection: Present normal inspection and symmetric chest wall rise; Absent tenderness Respiratory Respiratory exam: Present normal lung sounds bilaterally; Absent respiratory distress, wheezes, stridor or accessory muscle use Cardiovascular Cardiovascular exam: Present regular rate, normal rhythm and tachycardia Abdominal Exam Abdominal exam: Present tenderness (Right lower quadrant) and guarding (Right lower quadrant); Absent distention, rebound or rigidity Extremities Exam Extremities exam: Present normal inspection, full ROM and normal capillary refill; Absent tenderness or edema Back Exam Back exam: Present normal inspection and full ROM; Absent tenderness Neurological Exam Neurological exam: Present alert, oriented X3, CN II-XII intact and normal gait; Absent motor sensory deficit Psychiatric Psychiatric exam: Present normal affect and normal mood Skin Skin exam: Present warm and dry Medical Decision Making <Maricel Kee, DO - Last Filed: 04/29/25 15:25> Medical Records Medical records reviewed: Yes I reviewed the patient's medical records. Screening: Per USPSTF and CDC recommendations, given the prevalence of disease in our region, it is our hospital?s policy to screen for HIV and viral Hepatitis for all patients aged 18 and over and those with ongoing risk factors. Farooq Inquiry Pt receiving controlled substance: No Vital Signs: 04/29/25 14:32 04/29/25 14:33 04/29/25 14:34 Temperature 99.7 F H 99.7 F H Temperature Source Oral Oral Pulse Rate 124 H Pulse Rate [Left] 114 H Respiratory Rate 14 Blood Pressure Blood Pressure [Right Arm] 162/123 H Blood Pressure Mean [Right Arm] 136 Blood Pressure Source [Right Arm] Automatic Cuff Blood Pressure Position [Right Arm] Sitting 02 Sat by Pulse Oximetry 97 96 Oxygen Delivery Method Room Air 04/29/25 16:00 04/29/25 16:05 04/29/25 16:30 Temperature Temperature Source Pulse Rate 94 H 95 H 88 Pulse Rate [Left] Respiratory Rate Blood Pressure 118/68 101/64 L Blood Pressure [Right Arm] Blood Pressure Mean [Right Arm] Blood Pressure Source [Right Arm] Blood Pressure Position [Right Arm] 02 Sat by Pulse Oximetry 94 L 96 94 L Oxygen Delivery Method 04/29/25 17:00 Temperature Temperature Source Pulse Rate 95 H Pulse Rate [Left] Respiratory Rate Blood Pressure 124/82 Blood Pressure [Right Arm] Blood Pressure Mean [Right Arm] Blood Pressure Source [Right Arm] Blood Pressure Position [Right Arm] 02 Sat by Pulse Oximetry 95 Oxygen Delivery Method Lab Data Lab results reviewed: Yes I reviewed the patient's lab results. Lab Results 04/29/25 14:32: WBC 10.6, RBC 4.91, Hgb 13.4, Hct 40.3, MCV 82.1, MCH 27.3, MCHC 33.3, RDW 14.1, Plt Count 344, MPV 9.9, Neut % (Auto) 89.2 H, Lymph % (Auto) 5.2 L, [place] % (Auto) 4.5, Eos % (Auto) 0.5, Baso % (Auto) 0.4, Neut # (Auto) 9.4 H, Lymph # (Auto) 0.6 L, [place] # (Auto) 0.5, Eos # (Auto) 0.1, Baso # (Auto) 0.0, Sodium 137, Potassium 3.7, Chloride 109 H, Carbon Dioxide 22, Anion Gap 9.7, BUN 8, Creatinine 0.60, Estimated Creat Clear 135, Estimated GFR 115, Est GFR ( Amer) 139, Glucose 116 H, Calcium 8.8, Total Bilirubin 0.4, AST 26, ALT 27, Alkaline Phosphatase 107, Total Protein 7.4, Albumin 4.1, Globulin 3.3 H, Albumin/Globulin Ratio 1.2, Serum HCG, Qual Negative 04/29/25 16:41: Urine Color [place], Urine Appearance Sl cloudy, Urine pH 5.0, Ur Specific [place] <= 1.005, Urine Protein Trace, Urine Glucose (UA) Negative, Urine Ketones Negative, Urine Blood 3+ A, Urine Nitrate Negative, Urine Bilirubin Negative, Urine Urobilinogen 0.2, Ur Leukocyte Esterase Negative, Urine RBC 5-10, Urine WBC None, Ur Squamous Epith Cells Occasional, Urine Bacteria Trace 04/29/25 14:32 04/29/25 14:32 Orders (Tests/Meds): ED MEDICATIONS Discontinued Medications Generic Name Dose Route Start Last Admin Trade Name Freq PRN Reason Stop Dose Admin Acetaminophen 1,000 mg 04/29/25 14:34 04/29/25 14:56 Acetaminophen 1,000mg/100ml Vial IV 04/29/25 14:35 1,000 mg ONCE ONE Administration Hydromorphone HCl 1 mg 04/29/25 15:16 04/29/25 15:26 Hydromorphone 2mg/Ml Syringe IV 04/29/25 15:17 1 mg ONCE ONE Administration Hydromorphone HCl 1 mg 04/29/25 16:46 04/29/25 16:58 Hydromorphone 2mg/Ml Syringe IV 04/29/25 16:47 1 mg ONCE ONE Administration Lactated Ringer's 1,000 mls @ 999 mls/hr 04/29/25 14:34 04/29/25 14:57 Lactated Ringer's 1000 Ml Bag IV 04/29/25 15:34 999 mls/hr .Q1H1M ONE Administration Iopamidol 75 ml 04/29/25 15:17 04/29/25 15:17 Iopamidol-370 (76%);100ml Bottle IV 04/29/25 15:18 75 ml ONCE ONE Administration Ketorolac Tromethamine 15 mg 04/29/25 14:32 04/29/25 14:56 Ketorolac 30mg/Ml Vial IV 04/29/25 14:33 15 mg ONCE ONE Administration Ketorolac Tromethamine 15 mg 04/29/25 16:39 04/29/25 16:58 Ketorolac 30mg/Ml Vial IV 04/29/25 16:40 15 mg ONCE ONE Administration Morphine Sulfate 4 mg 04/29/25 14:32 04/29/25 14:56 Morphine 4mg/Ml Syringe IV 04/29/25 14:33 4 mg ONCE ONE Administration Morphine Sulfate 4 mg 04/29/25 16:38 04/29/25 16:49 Morphine 4mg/Ml Syringe IV 04/29/25 16:39 Not Given ONCE ONE Ondansetron HCl 4 mg 04/29/25 14:32 04/29/25 14:34 Ondansetron 4mg/2ml Vial IV 04/29/25 14:33 4 mg ONCE ONE Administration Sodium Chloride 10 ml 04/29/25 15:17 04/29/25 15:17 Sodium Chloride 0.9% 10ml Syr (Rad Only) IV 04/29/25 15:18 10 ml ONCE ONE Administration ORDERS Category Date Time Status CT abdomen pelvis w con Stat Cat Scan 04/29/25 14:33 Completed US transvaginal Stat Exams 04/29/25 14:32 Completed Complete Blood Count Auto Diff Stat Lab 04/29/25 14:32 Completed Comprehensive Metabolic Panel Stat Lab 04/29/25 14:32 Completed Serum [HCG Qualitative, Serum] Stat Lab 04/29/25 14:32 Completed UA [Urinalysis and Microscopic] Stat Lab 04/29/25 16:41 Completed Medical Decision Narrative: In summary, this patient is a 35-year-old female presenting to the Emergency Department for evaluation of severe right lower quadrant abdominal pain, nausea, vomiting, and low-grade fever earlier this morning. Differential diagnoses considered include but are not limited to appendicitis, ovarian cyst, ovarian torsion, ectopic , ureterolithiasis, pyelonephritis among others. Ruling out the most morbid conditions drove assessment. It should be noted patient's history includes PCOS, hypertension which may or may not be at goal therapy. This complicates all aspects of care by increasing patient's risk for morbidity. I reviewed patient's past medical records and noted recent ED evaluation 04/09/2025 for back pain. Workup is reassuring she was discharged home with diagnosis of likely musculoskeletal back pain On exam, the patient is very obviously uncomfortable appearing with tachycardia and hypertension, right lower quadrant tenderness and voluntary guarding. She had low-grade fever this morning but is currently afebrile and nontoxic. She also had nausea and vomiting secondary to pain. Workup included CBC, CMP, urinalysis, test, CT abdomen pelvis with IV contrast, and transvaginal ultrasound. She was given a bolus of IV fluids as well as IV morphine, Zofran, Toradol, and acetaminophen for symptomatic improvement. test is negative, CBC demonstrates mild neutrophilic shift with a white count of 10. Chemistry is reassuring with normal kidney function. Urinalysis and imaging pending at time of signout to oncoming provider, Dr. Enrique. She did have severe persistent pain, so I elected to order a dose of Dilaudid prior to signout. <Jase Enrique MD - Last Filed: 04/29/25 17:30> Vital Signs: 04/29/25 14:32 04/29/25 14:33 04/29/25 14:34 Temperature 99.7 F H 99.7 F H Temperature Source Oral Oral Pulse Rate 124 H Pulse Rate [Left] 114 H Respiratory Rate 14 Blood Pressure Blood Pressure [Right Arm] 162/123 H Blood Pressure Mean [Right Arm] 136 Blood Pressure Source [Right Arm] Automatic Cuff Blood Pressure Position [Right Arm] Sitting 02 Sat by Pulse Oximetry 97 96 Oxygen Delivery Method Room Air 04/29/25 16:00 04/29/25 16:05 04/29/25 16:30 Temperature Temperature Source Pulse Rate 94 H 95 H 88 Pulse Rate [Left] Respiratory Rate Blood Pressure 118/68 101/64 L Blood Pressure [Right Arm] Blood Pressure Mean [Right Arm] Blood Pressure Source [Right Arm] Blood Pressure Position [Right Arm] 02 Sat by Pulse Oximetry 94 L 96 94 L Oxygen Delivery Method 04/29/25 17:00 Temperature Temperature Source Pulse Rate 95 H Pulse Rate [Left] Respiratory Rate Blood Pressure 124/82 Blood Pressure [Right Arm] Blood Pressure Mean [Right Arm] Blood Pressure Source [Right Arm] Blood Pressure Position [Right Arm] 02 Sat by Pulse Oximetry 95 Oxygen Delivery Method Lab Data Lab Results 04/29/25 14:32: WBC 10.6, RBC 4.91, Hgb 13.4, Hct 40.3, MCV 82.1, MCH 27.3, MCHC 33.3, RDW 14.1, Plt Count 344, MPV 9.9, Neut % (Auto) 89.2 H, Lymph % (Auto) 5.2 L, [place] % (Auto) 4.5, Eos % (Auto) 0.5, Baso % (Auto) 0.4, Neut # (Auto) 9.4 H, Lymph # (Auto) 0.6 L, [place] # (Auto) 0.5, Eos # (Auto) 0.1, Baso # (Auto) 0.0, Sodium 137, Potassium 3.7, Chloride 109 H, Carbon Dioxide 22, Anion Gap 9.7, BUN 8, Creatinine 0.60, Estimated Creat Clear 135, Estimated GFR 115, Est GFR ( Amer) 139, Glucose 116 H, Calcium 8.8, Total Bilirubin 0.4, AST 26, ALT 27, Alkaline Phosphatase 107, Total Protein 7.4, Albumin 4.1, Globulin 3.3 H, Albumin/Globulin Ratio 1.2, Serum HCG, Qual Negative 04/29/25 16:41: Urine Color [place], Urine Appearance Sl cloudy, Urine pH 5.0, Ur Specific [place] <= 1.005, Urine Protein Trace, Urine Glucose (UA) Negative, Urine Ketones Negative, Urine Blood 3+ A, Urine Nitrate Negative, Urine Bilirubin Negative, Urine Urobilinogen 0.2, Ur Leukocyte Esterase Negative, Urine RBC 5-10, Urine WBC None, Ur Squamous Epith Cells Occasional, Urine Bacteria Trace Orders (Tests/Meds): ED MEDICATIONS Discontinued Medications Generic Name Dose Route Start Last Admin Trade Name Freq PRN Reason Stop Dose Admin Acetaminophen 1,000 mg 04/29/25 14:34 04/29/25 14:56 Acetaminophen 1,000mg/100ml Vial IV 04/29/25 14:35 1,000 mg ONCE ONE Administration Hydromorphone HCl 1 mg 04/29/25 15:16 04/29/25 15:26 Hydromorphone 2mg/Ml Syringe IV 04/29/25 15:17 1 mg ONCE ONE Administration Hydromorphone HCl 1 mg 04/29/25 16:46 04/29/25 16:58 Hydromorphone 2mg/Ml Syringe IV 04/29/25 16:47 1 mg ONCE ONE Administration Lactated Ringer's 1,000 mls @ 999 mls/hr 04/29/25 14:34 04/29/25 14:57 Lactated Ringer's 1000 Ml Bag IV 04/29/25 15:34 999 mls/hr .Q1H1M ONE Administration Iopamidol 75 ml 04/29/25 15:17 04/29/25 15:17 Iopamidol-370 (76%);100ml Bottle IV 04/29/25 15:18 75 ml ONCE ONE Administration Ketorolac Tromethamine 15 mg 04/29/25 14:32 04/29/25 14:56 Ketorolac 30mg/Ml Vial IV 04/29/25 14:33 15 mg ONCE ONE Administration Ketorolac Tromethamine 15 mg 04/29/25 16:39 04/29/25 16:58 Ketorolac 30mg/Ml Vial IV 04/29/25 16:40 15 mg ONCE ONE Administration Morphine Sulfate 4 mg 04/29/25 14:32 04/29/25 14:56 Morphine 4mg/Ml Syringe IV 04/29/25 14:33 4 mg ONCE ONE Administration Morphine Sulfate 4 mg 04/29/25 16:38 04/29/25 16:49 Morphine 4mg/Ml Syringe IV 04/29/25 16:39 Not Given ONCE ONE Ondansetron HCl 4 mg 04/29/25 14:32 04/29/25 14:34 Ondansetron 4mg/2ml Vial IV 04/29/25 14:33 4 mg ONCE ONE Administration Sodium Chloride 10 ml 04/29/25 15:17 04/29/25 15:17 Sodium Chloride 0.9% 10ml Syr (Rad Only) IV 04/29/25 15:18 10 ml ONCE ONE Administration ORDERS Category Date Time Status CT abdomen pelvis w con Stat Cat Scan 04/29/25 14:33 Completed US transvaginal Stat Exams 04/29/25 14:32 Completed Complete Blood Count Auto Diff Stat Lab 04/29/25 14:32 Completed Comprehensive Metabolic Panel Stat Lab 04/29/25 14:32 Completed Serum [HCG Qualitative, Serum] Stat Lab 04/29/25 14:32 Completed UA [Urinalysis and Microscopic] Stat Lab 04/29/25 16:41 Completed Medical Decision Narrative: In summary, this patient is a 35-year-old female presenting to the Emergency Department for evaluation of severe right lower quadrant abdominal pain, nausea, vomiting, and low-grade fever earlier this morning. Differential diagnoses considered include but are not limited to appendicitis, ovarian cyst, ovarian torsion, ectopic , ureterolithiasis, pyelonephritis among others. Ruling out the most morbid conditions drove assessment. It should be noted patient's history includes PCOS, hypertension which may or may not be at goal therapy. This complicates all aspects of care by increasing patient's risk for morbidity. I reviewed patient's past medical records and noted recent ED evaluation 04/09/2025 for back pain. Workup is reassuring she was discharged home with diagnosis of likely musculoskeletal back pain On exam, the patient is very obviously uncomfortable appearing with tachycardia and hypertension, right lower quadrant tenderness and voluntary guarding. She had low-grade fever this morning but is currently afebrile and nontoxic. She also had nausea and vomiting secondary to pain. Workup included CBC, CMP, urinalysis, test, CT abdomen pelvis with IV contrast, and transvaginal ultrasound. She was given a bolus of IV fluids as well as IV morphine, Zofran, Toradol, and acetaminophen for symptomatic improvement. test is negative, CBC demonstrates mild neutrophilic shift with a white count of 10. Chemistry is reassuring with normal kidney function. Urinalysis and imaging pending at time of signout to oncoming provider, Dr. Enirque. She did have severe persistent pain, so I elected to order a dose of Dilaudid prior to signout. Jase Enrique: Upon assumption of care patient was hemodynamically stable in pain. Workup reviewed by me, no significant leukocytosis, no HERIBERTO or critical electrolyte abnormality. Patient is non. Urinalysis interpreted by me microscopic hematuria without evidence of infection. Upon further questioning with the patient she had continued severe pain for which Dilaudid will be administered. She is on her menstrual cycle day 2. She does have a history of endometriosis diagnosed by diagnostic laparoscopy. CT imaging of the abdomen pelvis no acute pathology. Transvaginal ultrasound normal-sized ovaries with normal Doppler flow although there is rebound tenderness in a small amount of free fluid in the right lower quadrant. I discussed the case with Dr. Vera regarding management could be that patient ruptured a cyst and is having severe pain related to that. Observation is warranted and the patient was admitted to gynecology for continued evaluation and care at this time. Critical Care <Maricel Kee, DO - Last Filed: 04/29/25 15:25> Critical Care Time Critical Care Time: No
[2025-04-29 14:46] LABS: Basophils % 0.4 % (0.1-2.0); Eosinophils # 0.1 Kmm3 (0.0-0.4); Eosinophils % 0.5 % (0.1-12.0); Hematocrit 40.3 % (37.0-47.0); Hemoglobin 13.4 g/dL (12.2-16.2); Immature Granulocytes # 0.02 10^3uL; Immature Granulocytes % 0.2 %; Lymphocytes # 0.6 K/mm3 (0.7-4.5); Lymphocytes % 5.2 % (10-50); Mean Corpuscular HGB Conc 33.3 g/dL (31.8-35.4); Mean Corpuscular Hemoglobin 27.3 pg (27.0-31.2); Mean Corpuscular Volume 82.1 fl (81-99); Mean Platelet Volume 9.9 fl (7.4-10.4); Monocytes # 0.5 K/mm3 (0.1-1.0); Monocytes % 4.5 % (1.7-9.3); Neutrophils # 9.4 K/mm3 (1.8-7.8); Neutrophils % 89.2 % (37.0-80.0); Nucleated Red Blood Cells # 0 10^3/uL; Nucleated Red Blood Cells % 0 %; Platelet Count 344 K/mm3 (142-424); Red Blood Count 4.91 M/mm3 (4.20-5.40); Red Cell Distribution Width 14.1 % (11.5-17.5); Red Cell Distribution Width-SD 41.8 fL; White Blood Count 10.6 K/mm3 (4.8-10.8)
--- OUTSIDE RECORDS SUMMARY | 2025-04-29 14:48 | XMS_ITS | Clinical Summary ---
Author Organization [facility] Address [address] [id number] Care Team Providers Care Business Analyst Project Manager Name Role Phone KelleyAnn-Marie Alonzo OAKLEY Primary Care Provider [phone] Social History Tobacco Use Types Packs/Day Years Used Date Smoking Tobacco: Never Assessed Comments Unknown Sex and Gender Information Value Date Recorded Sex Assigned at Not on file Legal Sex Female 8:14 AM EST Gender Identity Not on file Sexual Orientation Not on file Plan of Treatment Health Maintenance Due Date Last Done Comments [facility]-Depression Screening 1992 [facility]-HIV Screening 1992 [facility]-Hepatitis C Screening 1992 [facility]-Infant/Child/Adol SDOH Screenings 1992 HPV Vaccines (1 - 3-dose series) 2007 [facility]- SDOH Screenings 2010 [facility]-Adult SDOH Screenings 2010 [facility]-Hepatitis B Vaccines (1 of 3 - 19+ 3-dose series) 2011 [facility]-Pap Smear 2013 [facility]-Cervical Cancer Screening 2022 [facility]-HPV/Cotest 2022 [facility]-Varicella Vaccines (2 of 2 - 13+ 2-dose series) 08/31/2023 08/03/2023 [id number] Vaccine ( season) 2024 09/25/2021, 12/12/2020, 11/13/2020 [facility]-Influenza Vaccine (Season Ended) 2025 09/25/2019 [facility]-DTaP,Tdap,and Td Vaccines (2 - Td or Tdap) 07/02/2028 07/02/2018 [facility]-Zoster Vaccines (1 of 2) 2042 08/03/2023 [facility]-Hepatitis A Vaccines Aged Out 11/08/2018 No longer eligible based on patient's age to complete this topic [facility]-HIB Vaccines Aged Out No longer e ligible based on patient's age to complete this topic [facility]-IPV Vaccines Aged Out No longer e ligible based on patient's age to complete this topic [facility]-Pneumococcal Vaccine: Pediatrics (0 to 5 Years) and At-Risk Patients (6 to 49 Years) Aged Out No longer eligible b ased on patient's age to complete this topic [facility]-Rotavirus Vaccines Aged Out No lo nger eligible based on patient's age to complete this topic Insurance [facility] Care Teams Business Analyst Project Manager Relationship Specialty Start Date End Date Ann-Marie Kelley APRN [address] [place] [address] PCP - General 12/28/23
[2025-04-29 14:51] LABS: Albumin Level 4.1 g/dl (3.5-5.0); Chloride 109 mmol/L (98-107); Potassium 3.7 mmoL/L (3.5-5.1); Sodium 137 mmol/L (136-145)
[2025-04-29 14:53] LABS: Blood Urea Nitrogen 8 mg/dl (7-17); Creatinine Clearance Estimated 135 mL/min (50-200); Estimated Glomerular Filt Rate 115 ml/min (>60); GFR (African American) 139 ML/MIN (>60)
[2025-04-29 14:54] LABS: Alanine Aminotransferase 27 U/L (12-78); Albumin/Globulin Ratio 1.2 (1.1-1.8); Alkaline Phosphatase 107 U/L (38-126); Anion Gap 9.7 mEq/L (5-15); Aspartate Amino Transferase 26 U/L (14-36); Bilirubin,Total 0.4 mg/dl (0.2-1.3); Calcium 8.8 mg/dl (8.4-10.2); Carbon Dioxide 22 mmol/L (22.0-30.0); Globulin 3.3 g/dL (1.3-3.2); Glucose 116 mg/dl (74-100); Total Protein,Serum 7.4 g/dl (6.3-8.2)
[2025-04-29] MEDS: KETOROLAC 30MG/ML VIAL 15 MG IV ×2 (14:56→16:58)
[2025-04-29] MEDS: MORPHINE 4MG/ML SYRINGE 4 MG IV (14:56)
[2025-04-29] MEDS: ACETAMINOPHEN 1,000MG/100ML VIAL 1000 MG IV (14:56)
[2025-04-29] MEDS: LACTATED RINGERS 1000ML 1,000 ML 999 ML IV (14:57)
[2025-04-29 15:00] LABS: HCG Qualitative, Serum Negative (Negative)
[2025-04-29] MEDS: IOPAMIDOL-370 (76%);100ML BOTTLE 75 ML IV (15:17)
[2025-04-29] MEDS: SODIUM CHLORIDE 0.9% 10ML SYR (RAD ONLY) 10 ML IV (15:17)
[2025-04-29] MEDS: HYDROMORPHONE 2MG/ML SYRINGE 1 MG IV ×2 (15:26→16:58)
[2025-04-29 16:52] LABS: Microscopic, Urine URINE MICROSCOPIC (MICROSCOPIC)
[2025-04-29 16:53] LABS: Appearance,Urine SL CLOUDY (Clear); Bilirubin,Urine Negative (Negative); Blood, Urine 3+ (Negative); Color,Urine ORANGE (Yellow); Glucose,Urine (UA) Negative (Negative); Ketones,Urine Negative (Negative); Leukocyte Esterase,Urine Negative (Negative); Nitrate,Urine Negative (Negative); Protein,Urine TRACE (Negative); Specific Gravity, Urine <= 1.005 (1.005-1.030); Urobilinogen,Urine 0.2 EU/dl (0.2)
[2025-04-29 17:15] LABS: Bacteria,Urine Trace /lpf; Squamous Epithelial Cell,Urine Occasional #/hpf (0-5)
--- NOTE | 2025-04-29 17:20 | PC.NURSE ---
MD on phone with OB contract implementation analyst
--- NOTE | 2025-04-29 17:27 | PC.NURSE ---
paged at this time.
--- NOTE | 2025-04-29 17:29 | PC.NURSE ---
Talked to house about bed request.
--- NOTE | 2025-04-29 18:03 | PC.NURSE ---
report called to jory on OB.
[2025-04-29] MEDS: LACTATED RINGERS 1000ML 1,000 ML 100 ML IV (18:19)
--- NOTE | 2025-04-29 19:58 | EXP.HP ---
History of Present Illness *Admission Date: 04/29/25 *Reason for visit:: Severe right lower quadrant pain, history of endometriosis *History of present illness: She is a 35-year-old lady who had onset of severe right lower quadrant pain this morning. This was associated with nausea. She had started her period today. She says she had a low-grade temperature at home but there is no documentation here of any fever. Hemoglobin and white blood cell count were normal. She had a CT scan that was essentially normal. An ultrasound showed normal ovaries with good flow and just trace fluid in the cul-de-sac. Otherwise no abnormal findings. [facility] Disclaimer: The information contained in this section may have been updated after the patient was seen, as this information can be updated by other users. Medical History Dysphagia Bilateral otitis media Viral respiratory illness Shortness of breath Abdominal pain Hematuria Flank pain Patient desires History of anemia Endometriosis determined by laparoscopy Balanced chromosomal translocation Chronic bilateral lower abdominal pain Abnormal uterine bleeding Foot pain, bilateral Palpitations PCOS (polycystic ovarian syndrome) Otorrhea, bilateral Otitis media Acute otitis media with effusion Depression Anxiety Kidney stone History of gastroesophageal reflux (GERD) Migraine Hypertension History of nephrolithiasis Family history of breast cancer in mother Surgical History S/P laparoscopy History of lithotripsy History of removal of ovarian cyst H/O cystoscopy History of esophagogastroduodenoscopy (EGD) Family History Family history of acute congestive heart failure Father Family history of cardiomyopathy Father Breast cancer Mother Family history of diabetes mellitus type II Father Social History Smoking Status: Never smoker alcohol intake: never substance use type: denies use current occupational status: employed Travel in the last 8 weeks?: Inside the [place] household members: spouse housing: house number of children: 0 current occupation: RN current occupational exposures/hazards: No caffeine: Yes do you feel safe at home: Yes victim of physical abuse: No victim of emotional abuse: No victim of sexual abuse: No Have you lived/traveled outside US in past 30 days?: No Contact w/someone who lives/traveled outside US past 30 days?: No Exposure to someone with infectious disease in past 14 days?: No Do you have a fever (greater than 100.4 F or 38 C)?: No Have you tested positive for COVID-19?: No Exposed to someone with COVID-19 in past 14 days?: No Do you have a sore throat?: No Do you have a cough?: No Do you have any weakness?: No Are you experiencing any nausea/vomitting?: No Do you have any diarrhea?: No Are you experiencing any unusual bleeding?: No Do you have any muscle aches/pain?: No Do you have any abdominal pain?: No Are you experiencing loss of taste or smell?: No Other Medical History Have you received the Flu Vaccine for this season: Yes Have you received the Pneumonia Vaccine: No Review of Systems Review of Systems Review of systems:: pertinent systems reviewed and negative unless documented below Meds Home Medications and Allergies Home Medications ?Medication ?Instructions ?Recorded ?Confirmed ?Type Prenate Mini (ferrous asparto 1 cap PO DAILY #90 caps 10/20/23 04/29/25 Rx glycinate) 18 mg-1 mg-350 mg capsule ( vit 04-xflc-cqfox-dha) lorazepam 0.5 mg tablet 0.5 mg PO BID PRN anxiety #30 tabs 12/20/24 04/29/25 Rx ondansetron 4 mg disintegrating 4 mg PO Q8H PRN nausea and 12/21/24 04/29/25 Rx tablet vomiting #30 tabs lamotrigine 25 mg tablet (Lamictal) 75 mg (3 x 25 mg) PO DAILY #90 tabs 02/21/25 04/29/25 Rx sertraline 100 mg tablet 200 mg (2 x 100 mg) PO DAILY #60 02/21/25 04/29/25 Rx tabs methocarbamol 1,000 mg tablet 1,000 mg PO Q8H PRN back pain 04/29/25 04/29/25 History promethazine 25 mg tablet 25 mg PO TID PRN Nausea And 04/29/25 04/29/25 History Vomiting New Prescriptions to Start Prescriptions: Allergies Allergy/AdvReac Type Severity Reaction Status Date / Time prochlorperazine (From Allergy Other Verified 04/29/25 14:41 Compazine) Exam Data for Last 24 hours Vital signs and Labs for Last 24 Hours: Temp Pulse Resp BP Pulse Ox O2 Del Method 98.2 F 87 15 107/66 L 98 Room Air 04/29/25 18:39 04/29/25 18:39 04/29/25 18:39 04/29/25 18:39 04/29/25 18:41 04/29/25 18:46 Laboratory Results - last 24 hr 04/29/25 14:32: WBC 10.6, RBC 4.91, Hgb 13.4, Hct 40.3, MCV 82.1, MCH 27.3, MCHC 33.3, RDW 14.1, Plt Count 344, MPV 9.9, Neut % (Auto) 89.2 H, Lymph % (Auto) 5.2 L, [place] % (Auto) 4.5, Eos % (Auto) 0.5, Baso % (Auto) 0.4, Neut # (Auto) 9.4 H, Lymph # (Auto) 0.6 L, [place] # (Auto) 0.5, Eos # (Auto) 0.1, Baso # (Auto) 0.0, Sodium 137, Potassium 3.7, Chloride 109 H, Carbon Dioxide 22, Anion Gap 9.7, BUN 8, Creatinine 0.60, Estimated Creat Clear 135, Estimated GFR 115, Est GFR ( Amer) 139, Glucose 116 H, Calcium 8.8, Total Bilirubin 0.4, AST 26, ALT 27, Alkaline Phosphatase 107, Total Protein 7.4, Albumin 4.1, Globulin 3.3 H, Albumin/Globulin Ratio 1.2, Serum HCG, Qual Negative 04/29/25 16:41: Urine Color [place], Urine Appearance Sl cloudy, Urine pH 5.0, Ur Specific [place] <= 1.005, Urine Protein Trace, Urine Glucose (UA) Negative, Urine Ketones Negative, Urine Blood 3+ A, Urine Nitrate Negative, Urine Bilirubin Negative, Urine Urobilinogen 0.2, Ur Leukocyte Esterase Negative, Urine RBC 5-10, Urine WBC None, Ur Squamous Epith Cells Occasional, Urine Bacteria Trace I & O for Last 24 hours: Intake & Output 04/27/25 04/28/25 04/29/25 04/30/25 11:59 11:59 11:59 11:59 Weight 275 lb Constitutional Constitutional: no acute distress and obese *Routine HEENT Exam Head: Present normocephalic Eye: Present EOMI and PERRL ENT: Present mucous membranes moist *Routine Neck Exam Neck: Present supple; Absent lymphadenopathy *Routine Respiratory Exam Respiratory: Present CTA bilaterally *Routine Cardiovascular Exam Cardiovascular: Present RRR *Routine Abdominal Exam Abdominal: Present soft, normoactive bowel sounds, tenderness and guarding; Absent distended or rigid Comments: She has tenderness in the right lower quadrant and tenderness over McBurney's. *Routine Rectal Exam Rectal:: deferred *Routine Genitalia Exam Genitalia:: deferred *Routine Extremities Exam Extremities: Absent cyanosis, clubbing or edema *Routine Skin Exam Skin: Present warm; Absent rash *Routine Neurological Exam Neurological: Present alert and oriented X3 Assessment and Plan *Assessment and plan (1) Hx of endometriosis: Status: Acute Category: Medical Code(s): Z87.42 - Personal history of other diseases of the female genital tract (2) Abdominal pain, RLQ: Status: Acute Category: Medical Code(s): R10.31 - Right lower quadrant pain Plan 1. They were having difficulty controlling her pain in the ER so she is admitted for pain relief. No fever no white count. 2. We will admit and prescribe her Toradol every 6 hours, Tylenol every 6 hours and oxycodone 10 mg every 4 hours. We will observe her overnight. 3. Although she is tender over McBurney's and in the right lower quadrant there is no fever or chills. She has no further episodes of nausea or vomiting. CT scan was negative for appendicitis. 4. Ultrasound showed just a small amount of fluid in the cul-de-sac that could be physiologic or retrograde flow since she is now on her period. From her history it sounds like she may have had a ruptured cyst on the right side given the sudden onset of pain.
[2025-04-29] MEDS: OXYCODONE 5MG IMMEDIATE RELEASE TABLET 10 MG PO (20:48)
[2025-04-29] MEDS: ACETAMINOPHEN 500MG TAB 1000 MG PO (20:50)
--- NOTE | 2025-04-29 22:07 | PC.NURSE ---
Patient declines pain medication at this time, wishes to see if heating pad will help
[2025-04-29] MEDS: KETOROLAC 30MG/ML VIAL 30 MG IV (22:53)
[2025-04-30] VITALS (7 sets, daily range): BP systolic 101–116; BP diastolic 58–75; PULSE 68–83; RESP 16–18; TEMP 36.4–36.8; O2SAT 97–99
[2025-04-30] MEDS: OXYCODONE 5MG IMMEDIATE RELEASE TABLET 10 MG PO ×3 (02:38→21:13)
[2025-04-30] MEDS: ACETAMINOPHEN 500MG TAB 1000 MG PO ×3 (02:39→21:14)
[2025-04-30] MEDS: ONDANSETRON 4MG/2ML VIAL 4 MG IV ×2 (02:41→08:28)
[2025-04-30] MEDS: LACTATED RINGERS 1000ML 1,000 ML 100 ML IV ×3 (02:44→23:49)
[2025-04-30] MEDS: KETOROLAC 30MG/ML VIAL 30 MG IV ×3 (05:03→18:21)
[2025-04-30 06:58] LABS: Basophils % 0.5 % (0.1-2.0); Eosinophils # 0.1 Kmm3 (0.0-0.4); Eosinophils % 1.7 % (0.1-12.0); Hematocrit 35.2 % (37.0-47.0); Immature Granulocytes # 0.01 10^3uL; Immature Granulocytes % 0.2 %; Lymphocytes # 1.1 K/mm3 (0.7-4.5); Lymphocytes % 27.2 % (10-50); Mean Corpuscular HGB Conc 32.4 g/dL (31.8-35.4); Mean Corpuscular Hemoglobin 27.1 pg (27.0-31.2); Mean Corpuscular Volume 83.8 fl (81-99); Mean Platelet Volume 9.7 fl (7.4-10.4); Monocytes # 0.4 K/mm3 (0.1-1.0); Monocytes % 8.6 % (1.7-9.3); Neutrophils # 2.5 K/mm3 (1.8-7.8); Neutrophils % 61.8 % (37.0-80.0); Nucleated Red Blood Cells # 0 10^3/uL; Nucleated Red Blood Cells % 0 %; Platelet Count 236 K/mm3 (142-424); Red Cell Distribution Width 14.4 % (11.5-17.5); Red Cell Distribution Width-SD 43.9 fL; White Blood Count 4.1 K/mm3 (4.8-10.8)
[2025-04-30 07:18] LABS: Albumin Level 3.2 g/dl (3.5-5.0); Chloride 108 mmol/L (98-107)
[2025-04-30 07:19] LABS: Potassium 3.2 mmoL/L (3.5-5.1); Sodium 136 mmol/L (136-145)
[2025-04-30 07:21] LABS: Alanine Aminotransferase 21 U/L (12-78); Anion Gap 3.2 mEq/L (5-15); Aspartate Amino Transferase 25 U/L (14-36); Blood Urea Nitrogen 9 mg/dl (7-17); Carbon Dioxide 28 mmol/L (22.0-30.0); Creatinine Clearance Estimated 135 mL/min (50-200); Estimated Glomerular Filt Rate 115 ml/min (>60); GFR (African American) 139 ML/MIN (>60)
[2025-04-30 07:22] LABS: Albumin/Globulin Ratio 1.2 (1.1-1.8); Alkaline Phosphatase 80 U/L (38-126); Bilirubin,Total 0.3 mg/dl (0.2-1.3); Calcium 8.3 mg/dl (8.4-10.2); Globulin 2.6 g/dL (1.3-3.2); Glucose 82 mg/dl (74-100); Total Protein,Serum 5.8 g/dl (6.3-8.2)
[2025-04-30 08:53] LABS: Hemoglobin 11.2 g/dL (12.2-16.2)
--- NOTE | 2025-04-30 09:36 | EXP.ACUTE.PN ---
Subjective *Date: 04/30/25 *Time: 11:14 Interval history: Resting in bed this morning. Pain was a little better overnight with resting. But, RLQ pain increases with movement. She admits the pain has increased again this morning even while resting in bed. She is on day 3 of her menstrual cycle. She admits to nausea and reports she doesn't have an appetite. Voiding without difficulty but is not voiding much. Urine color is very dark. No fever/chills, chest pain or shortness of breath. Medical Exam Vital signs and Labs for Last 24 Hours: Vital Signs Temp Pulse Pulse Resp BP BP Pulse Ox 04/30/25 08:25 97.8 F 76 16 116/75 99 04/30/25 08:25 99 04/30/25 08:25 04/30/25 06:34 04/30/25 05:00 04/30/25 05:00 97.6 F 70 18 101/64 L 98 04/30/25 05:00 04/30/25 04:02 04/30/25 03:09 04/30/25 02:08 04/30/25 01:00 04/30/25 01:00 98.1 F 83 16 102/58 L 97 04/30/25 00:13 04/29/25 23:00 04/29/25 22:07 04/29/25 21:20 04/29/25 20:05 98.2 F 82 19 115/58 L 98 04/29/25 20:05 04/29/25 20:05 82 04/29/25 19:40 04/29/25 18:46 04/29/25 18:41 98 04/29/25 18:39 98.2 F 87 15 107/66 L 98 04/29/25 18:13 98.1 F 86 17 127/78 04/29/25 18:00 86 127/78 95 04/29/25 17:30 91 H 114/69 96 04/29/25 17:00 95 H 124/82 95 04/29/25 16:30 88 101/64 L 94 L 04/29/25 16:05 95 H 118/68 96 04/29/25 16:00 94 H 94 L 04/29/25 14:34 99.7 F H 04/29/25 14:33 124 H 96 04/29/25 14:32 99.7 F H 114 H 14 162/123 H 97 O2 Del Method 04/30/25 08:25 Room Air 04/30/25 08:25 Room Air 04/30/25 08:25 Room Air 04/30/25 06:34 Room Air 04/30/25 05:00 Room Air 04/30/25 05:00 Room Air 04/30/25 05:00 Room Air 04/30/25 04:02 Room Air 04/30/25 03:09 Room Air 04/30/25 02:08 Room Air 04/30/25 01:00 Room Air 04/30/25 01:00 Room Air 04/30/25 00:13 Room Air 04/29/25 23:00 Room Air 04/29/25 22:07 Room Air 04/29/25 21:20 Room Air 04/29/25 20:05 Room Air 04/29/25 20:05 Room Air 04/29/25 20:05 Room Air 04/29/25 19:40 Room Air 04/29/25 18:46 Room Air 04/29/25 18:41 Room Air 04/29/25 18:39 Room Air 04/29/25 18:13 04/29/25 18:00 04/29/25 17:30 04/29/25 17:00 04/29/25 16:30 04/29/25 16:05 04/29/25 16:00 04/29/25 14:34 04/29/25 14:33 04/29/25 14:32 Room Air Intake and Output 04/29/25 04/30/25 04/30/25 23:59 07:59 15:59 Intake Total 843 / 843 Output Total 0 / 0 Balance 843 / 843 Intake: Intake, Total IV Amount 843 / 843 Lactated Ringers 1000ML 1,000 843 / 843 ml @ 100 mls/hr IV .Q10H [facility] Rx #:[id number] Output: Output, Urine Amount 0 / 0 Other: Number of Unmeasured Voids 1 Laboratory Results - last 24 hr 04/29/25 14:32: WBC 10.6, RBC 4.91, Hgb 13.4, Hct 40.3, MCV 82.1, MCH 27.3, MCHC 33.3, RDW 14.1, Plt Count 344, MPV 9.9, Neut % (Auto) 89.2 H, Lymph % (Auto) 5.2 L, [place] % (Auto) 4.5, Eos % (Auto) 0.5, Baso % (Auto) 0.4, Neut # (Auto) 9.4 H, Lymph # (Auto) 0.6 L, [place] # (Auto) 0.5, Eos # (Auto) 0.1, Baso # (Auto) 0.0, Sodium 137, Potassium 3.7, Chloride 109 H, Carbon Dioxide 22, Anion Gap 9.7, BUN 8, Creatinine 0.60, Estimated Creat Clear 135, Estimated GFR 115, Est GFR ( Amer) 139, Glucose 116 H, Calcium 8.8, Total Bilirubin 0.4, AST 26, ALT 27, Alkaline Phosphatase 107, Total Protein 7.4, Albumin 4.1, Globulin 3.3 H, Albumin/Globulin Ratio 1.2, Serum HCG, Qual Negative 04/29/25 16:41: Urine Color [place], Urine Appearance Sl cloudy, Urine pH 5.0, Ur Specific [place] <= 1.005, Urine Protein Trace, Urine Glucose (UA) Negative, Urine Ketones Negative, Urine Blood 3+ A, Urine Nitrate Negative, Urine Bilirubin Negative, Urine Urobilinogen 0.2, Ur Leukocyte Esterase Negative, Urine RBC 5-10, Urine WBC None, Ur Squamous Epith Cells Occasional, Urine Bacteria Trace 04/30/25 06:43: WBC 4.1 L D, RBC 4.20, Hgb 11.2 L D, Hct 35.2 L, MCV 83.8, MCH 27.1, MCHC 32.4, RDW 14.4, Plt Count 236 D, MPV 9.7, Neut % (Auto) 61.8, Lymph % (Auto) 27.2, [place] % (Auto) 8.6, Eos % (Auto) 1.7, Baso % (Auto) 0.5, Neut # (Auto) 2.5, Lymph # (Auto) 1.1, [place] # (Auto) 0.4, Eos # (Auto) 0.1, Baso # (Auto) 0.0, Sodium 136, Potassium 3.2 L, Chloride 108 H, Carbon Dioxide 28, Anion Gap 3.2 L, BUN 9, Creatinine 0.60, Estimated Creat Clear 135, Estimated GFR 115, Est GFR ( Amer) 139, Glucose 82 D, Calcium 8.3 L, Total Bilirubin 0.3, AST 25, ALT 21, Alkaline Phosphatase 80, Total Protein 5.8 L, Albumin 3.2 L D, Globulin 2.6, Albumin/Globulin Ratio 1.2 I & O for Labs for Last 24 Hours: Intake & Output 04/27/25 04/28/25 04/29/25 04/30/25 23:59 23:59 23:59 23:59 Intake Total 843 / 843 Output Total 0 / 0 Balance 843 / 843 Weight 275 lb Head: Present atraumatic and normocephalic ENT: Present normal exam Neck: Present normal inspection and full ROM Respiratory: Present CTA bilaterally and normal respiratory effort Cardiac: Present Reg Rate and Rhythm GI: Present soft and tenderness (+ RLQ and suprapubic tenderness to palpation); Absent distention or guarding Rectal (female): Present deferred (female): Present deferred Extremities: Present full ROM; Absent edema or calf tenderness Neuro: Present alert, awake and moves all extremities Assessment and Plan *Assessment and plan (1) Abdominal pain, RLQ: Status: Acute Category: Medical Code(s): R10.31 - Right lower quadrant pain (2) Hx of endometriosis: Status: Acute Category: Medical Code(s): Z87.42 - Personal history of other diseases of the female genital tract (3) PCOS (polycystic ovarian syndrome): Problem Comment: Status: Acute Category: Medical Code(s): E28.2 - Polycystic ovarian syndrome (4) Endometriosis determined by laparoscopy: Problem Comment: powder burn endometrial implants found on left uterosacral ligament and posterior cul-de-sac 04/2023 Status: Acute Category: Medical Code(s): N80.9 - Endometriosis, unspecified (5) Generalized anxiety disorder with panic attacks: Status: Acute Category: Medical Code(s): F41.1 - Generalized anxiety disorder; F41.0 - Panic disorder [episodic paroxysmal anxiety] (6) Major depression, chronic: Status: Acute Category: Medical Code(s): F32.9 - Major depressive disorder, single episode, unspecified Plan Continue Toradol, Tylenol and Oxy PRN AM labs demonstrated hypokalemia, 3.2; WBC = 4.1 - potassium chloride 40 mEq x 1 dose UOP is low - 1 Liter bolus Repeat AM labs tomorrow Continue home medications Close monitoring Cause of pain still not well defined... endometriosis vs ruptured ovarian cyst. However, ruptured cyst on day 3 of menstrual cycle would be abnormal Possible d/c home tomorrow
[2025-04-30] MEDS: SERTRALINE 100MG TABLET 200 MG PO (10:21)
[2025-04-30] MEDS: LACTATED RINGERS 1000ML 1,000 ML 999 ML IV (10:23)
[2025-04-30] MEDS: lamoTRIgine 100MG TABLET 75 MG PO (11:07)
[2025-04-30] MEDS: POTASSIUM CHLORIDE 20MEQ TAB 40 MEQ PO (12:14)
[2025-04-30] MEDS: PROMETHAZINE HCL 25MG/ML 1ML VIAL 12.5 MG IV ×2 (12:36→19:56)
[2025-04-30] MEDS: SODIUM CHLORIDE 0.9% 25ML BAG 25 ML IV (12:37)
--- NOTE | 2025-04-30 16:28 | PC.NURSE ---
Pt. reports pain at 4/10. Pt. has slept since 1pm, Nurse offered pain medication, pt. declined. Pt. reports nausea is gone and would like to try and eat dinner when it arrives. Nurse v/u. Pt. denies needs.
[2025-05-01] VITALS: BP 106/59; PULSE 63; RESP 16; TEMP 36.5; O2SAT 95
[2025-05-01] MEDS: KETOROLAC 30MG/ML VIAL 30 MG IV (00:25)
[2025-05-01 04:00] VITALS: BP 99/67; PULSE 78; RESP 16; TEMP 36.6; O2SAT 97
[2025-05-01 06:22] LABS: Basophils % 0.4 % (0.1-2.0); Eosinophils # 0.1 Kmm3 (0.0-0.4); Eosinophils % 2.8 % (0.1-12.0); Hematocrit 34.9 % (37.0-47.0); Immature Granulocytes # 0.01 10^3uL; Immature Granulocytes % 0.2 %; Lymphocytes # 1.6 K/mm3 (0.7-4.5); Lymphocytes % 34.5 % (10-50); Mean Corpuscular HGB Conc 31.5 g/dL (31.8-35.4); Mean Corpuscular Hemoglobin 26.7 pg (27.0-31.2); Mean Corpuscular Volume 84.7 fl (81-99); Mean Platelet Volume 10.1 fl (7.4-10.4); Monocytes # 0.5 K/mm3 (0.1-1.0); Monocytes % 10.1 % (1.7-9.3); Neutrophils # 2.4 K/mm3 (1.8-7.8); Nucleated Red Blood Cells # 0 10^3/uL; Nucleated Red Blood Cells % 0 %; Platelet Count 227 K/mm3 (142-424); Red Blood Count 4.12 M/mm3 (4.20-5.40); Red Cell Distribution Width 14.3 % (11.5-17.5); Red Cell Distribution Width-SD 44.1 fL; White Blood Count 4.7 K/mm3 (4.8-10.8)
[2025-05-01 06:45] LABS: Albumin Level 2.9 g/dl (3.5-5.0); Chloride 110 mmol/L (98-107); Potassium 3.6 mmoL/L (3.5-5.1); Sodium 138 mmol/L (136-145)
[2025-05-01 06:48] LABS: Alanine Aminotransferase 26 U/L (12-78); Albumin/Globulin Ratio 1.1 (1.1-1.8); Alkaline Phosphatase 89 U/L (38-126); Anion Gap 4.6 mEq/L (5-15); Aspartate Amino Transferase 34 U/L (14-36); Blood Urea Nitrogen 6 mg/dl (7-17); Calcium 8.2 mg/dl (8.4-10.2); Carbon Dioxide 27 mmol/L (22.0-30.0); Creatinine Clearance Estimated 161 mL/min (50-200); Estimated Glomerular Filt Rate 142 ml/min (>60); GFR (African American) 172 ML/MIN (>60); Globulin 2.6 g/dL (1.3-3.2); Glucose 76 mg/dl (74-100); Total Protein,Serum 5.5 g/dl (6.3-8.2)
[2025-05-01 06:55] LABS: Bilirubin,Total < 0.1 mg/dl (0.2-1.3)
--- NOTE | 2025-05-01 07:06 | PC.NURSE ---
Report given to Rosalinda Patricia RN
[2025-05-01] MEDS: lamoTRIgine 100MG TABLET 75 MG PO (08:24)
[2025-05-01] MEDS: SERTRALINE 100MG TABLET 200 MG PO (08:24)
[2025-05-01 08:25] VITALS: BP 112/74; PULSE 78; RESP 16; TEMP 36.7; O2SAT 96
--- NOTE | 2025-05-01 08:44 | EXP.DC.SUM ---
General Admission date:: 04/29/25 Discharge date: 05/01/25 HPI HPI HPI: Feeling better this morning. She has not required pain medicine since last night. RLQ pain is dull. Mild nausea. No vomiting. She had some watery stools last night but nothing since. She is tolerating regular diet. No fever/chills, chest pain or shortness of breath. Ambulating well ad michel. She would like to go home. Hospital Course Hospital Course Hospital Course: Diane Schultz is a 35-year-old female admitted to [facility] for severe right lower quadrant pain that started 04/29/25. She had associated nausea. She started her period 04/29. She says she had a low-grade temperature at home but there is no fever on admission. Hemoglobin and white blood cell count were normal. She had a CT scan that was essentially normal. An ultrasound showed normal ovaries with good flow and just trace fluid in the cul-de-sac. Otherwise no abnormal findings. She was admitted for pain control. She received Toradol, Tylenol and Oxycodone. Pain gradually improved and she was feeling much better hospital day # 3. WBC was low, 4.7 but remainder of labs within normal limits. Vital signs stable, afebrile. She was discharged home on hospital day # 3 with instructions to follow-up in the office in 1 week. Discussed repeating CBC next week. Exam Data for Last 24 hours Vital signs and Labs for Last 24 Hours: Temp Pulse Resp BP Pulse Ox O2 Del Method 98.0 F 78 16 112/74 96 Room Air 05/01/25 08:25 05/01/25 08:25 05/01/25 08:25 05/01/25 08:25 05/01/25 08:25 05/01/25 08:25 Laboratory Results - last 24 hr 04/30/25 06:43: Hgb 11.2 L D 05/01/25 05:22: WBC 4.7 L, RBC 4.12 L, Hgb 11.0 L, Hct 34.9 L, MCV 84.7, MCH 26.7 L, MCHC 31.5 L, RDW 14.3, Plt Count 227, MPV 10.1, Neut % (Auto) 52.0, Lymph % (Auto) 34.5, [place] % (Auto) 10.1 H, Eos % (Auto) 2.8, Baso % (Auto) 0.4, Neut # (Auto) 2.4, Lymph # (Auto) 1.6, [place] # (Auto) 0.5, Eos # (Auto) 0.1, Baso # (Auto) 0.0, Sodium 138, Potassium 3.6, Chloride 110 H, Carbon Dioxide 27, Anion Gap 4.6 L, BUN 6 L D, Creatinine 0.50 L, Estimated Creat Clear 161, Estimated GFR 142, Est GFR ( Amer) 172 D, Glucose 76, Calcium 8.2 L, Total Bilirubin < 0.1 L, AST 34 D, ALT 26, Alkaline Phosphatase 89, Total Protein 5.5 L, Albumin 2.9 L, Globulin 2.6, Albumin/Globulin Ratio 1.1 I & O for Last 24 hours: Intake & Output 04/28/25 04/29/25 04/30/25 05/01/25 23:59 23:59 23:59 23:59 Intake Total 843 / 843 Output Total 0 / 0 Balance 843 / 843 - Weight 275 lb Constitutional Constitutional: no acute distress and cooperative *Routine HEENT Exam Head: Present normocephalic and atraumatic Eye: Absent conjunctivae pink ENT: Present mucous membranes moist *Routine Neck Exam Neck: Present full ROM *Routine Respiratory Exam Respiratory: Present CTA bilaterally and normal respiratory effort *Routine Cardiovascular Exam Cardiovascular: Present RRR *Routine Abdominal Exam Abdominal: Present soft and tenderness (mild RLQ tenderness to palpation); Absent distended or guarding *Routine Rectal Exam Patient deferred: visual exam *Routine Exam Patient deferred: external exam *Routine Extremities Exam Extremities: Present full ROM; Absent edema or calf tenderness *Routine Neurological Exam Neurological: Present alert, moving all extremities and normal speech Routine Psychiatric Exam Psychiatric: Present normal affect and cooperative Results Data Completed and Pending Labs on day of discharge: Labs from last 24 hours 05/01/25 04/30/25 05:22 06:43 WBC 4.7 L RBC 4.12 L Hgb 11.0 L 11.2 L D Hct 34.9 L MCV 84.7 MCH 26.7 L MCHC 31.5 L RDW 14.3 Plt Count 227 MPV 10.1 Neut % (Auto) 52.0 Lymph % (Auto) 34.5 [place] % (Auto) 10.1 H Eos % (Auto) 2.8 Baso % (Auto) 0.4 Neut # (Auto) 2.4 Lymph # (Auto) 1.6 [place] # (Auto) 0.5 Eos # (Auto) 0.1 Baso # (Auto) 0.0 Sodium 138 Potassium 3.6 Chloride 110 H Carbon Dioxide 27 Anion Gap 4.6 L BUN 6 L D Creatinine 0.50 L Estimated Creat Clear 161 Estimated GFR 142 Est GFR ( Amer) 172 D Glucose 76 Calcium 8.2 L Total Bilirubin < 0.1 L AST 34 D ALT 26 Alkaline Phosphatase 89 Total Protein 5.5 L Albumin 2.9 L Globulin 2.6 Albumin/Globulin Ratio 1.1 DS: Diagnosis Discharge Diagnosis (1) Abdominal pain, RLQ: Status: Acute Code(s): R10.31 - Right lower quadrant pain (2) Hx of endometriosis: Status: Acute Code(s): Z87.42 - Personal history of other diseases of the female genital tract (3) PCOS (polycystic ovarian syndrome): Status: Acute Code(s): E28.2 - Polycystic ovarian syndrome Problem details: (4) Endometriosis determined by laparoscopy: Status: Acute Code(s): N80.9 - Endometriosis, unspecified Problem details: powder burn endometrial implants found on left uterosacral ligament and posterior cul-de-sac 04/2023 (5) Generalized anxiety disorder with panic attacks: Status: Acute Code(s): F41.1 - Generalized anxiety disorder; F41.0 - Panic disorder [episodic paroxysmal anxiety] (6) Major depression, chronic: Status: Acute Code(s): F32.9 - Major depressive disorder, single episode, unspecified Meds Home Medications and Allergies Home Medications ?Medication ?Instructions ?Recorded ?Confirmed ?Type Prenate Mini (ferrous asparto 1 cap PO DAILY #90 caps 10/20/23 04/29/25 Rx glycinate) 18 mg-1 mg-350 mg capsule ( vit 05-[id number]-lqlew-dha) lorazepam 0.5 mg tablet 0.5 mg PO BID PRN anxiety #30 tabs 12/20/24 04/29/25 Rx lamotrigine 25 mg tablet (Lamictal) 75 mg (3 x 25 mg) PO DAILY #90 tabs 02/21/25 04/29/25 Rx sertraline 100 mg tablet 200 mg (2 x 100 mg) PO DAILY #60 02/21/25 04/29/25 Rx tabs methocarbamol 1,000 mg tablet 1,000 mg PO Q8H PRN back pain 04/29/25 04/29/25 History ketorolac 10 mg tablet 10 mg PO Q8H PRN pain #8 tabs 05/01/25 Rx New Prescriptions to Start Prescriptions: ketorolac Anh Jones Allergies Allergy/AdvReac Type Severity Reaction Status Date / Time prochlorperazine (From Allergy Other Verified 04/29/25 14:41 Compazine) Discharge Plan Disposition Patient Disposition: Home, Self-Care Condition: Good Follow up Plan Follow up with: Anh Jones DO [Staff Physician, [employer]] - 1 week Prescriptions/Medication Reconciliation: New ketorolac 10 mg tablet 10 mg PO Q8H PRN (Reason: pain) Qty: 8 0RF Rx Instructions: maximum total duration of 5 days from all oral, intranasal, or parenteral formulations Continued lorazepam 0.5 mg tablet 0.5 mg PO BID PRN (Reason: anxiety) Qty: 30 0RF sertraline 100 mg tablet 200 mg PO DAILY Qty: 60 2RF lamotrigine [Lamictal] 25 mg tablet 75 mg PO DAILY Qty: 90 0RF Prenate Mini (ferr asp glycin) 18-1-350 mg capsule 1 cap PO DAILY Qty: 90 4RF methocarbamol 1,000 mg tablet 1,000 mg PO Q8H PRN (Reason: back pain) Problem Reconciliation Problems Reviewed?: Yes Patient Discharge Instructions ACTIVITY: Limited activity DIET: continue same diet and regular diet Additional Instructions: Rest, Drink plenty of fluids Regular diet Nothing in the Vagina for the rest of the week. Patient Instructions: DI for Endometriosis, DI for Viral Gastroenteritis -- Adult Print Language: [place] Providers Primary Care Provider: Ann-Marie Kelley Admit Provider: Phong Vera Attending Provider: Anh Jones
--- NOTE | 2025-05-01 09:19 | PC.NURSE ---
Discharge education provided, Questions encouraged and answered. Pt. v/u.
== END 2025-05-01 09:32 | disposition home or self-care (01) ==
LOC: ER 17:30 → OB 17:36
PROVIDERS: Emergency Medicine; Admitting Provider Nurse Practitioner Obstetrics & Gynecology; Emergency Provider Emergency Medicine; PCP Nurse Practitioner Family; Visit Provider Obstetrics & Gynecology
DX: R10.31 Right lower quadrant pain (principal); R11.2 Nausea with vomiting, unspecified; I10 Essential (primary) hypertension; E28.2 Polycystic ovarian syndrome; N80.329 Endometriosis of the posterior cul-de-sac, unspecified depth; N80.3C2 Endometriosis of the left uterosacral ligament, unspecified depth; F41.1 Generalized anxiety disorder; F41.0 Panic disorder [episodic paroxysmal anxiety]; F32.9 Major depressive disorder, single episode, unspecified; Z87.442 Personal history of urinary calculi; Z79.899 Other long term (current) drug therapy; Z88.8 Allergy status to other drugs, medicaments and biological substances
CPT/HCPCS: 96361 ×2; 96374; 96375; 96376 ×2; 36415; 74177; 76830; 80053; 81001; 84703; 85025; G0378; J0131; J1171; J1885; J2270; J2405; J2550; J7120; Q9967

== ENCOUNTER 2025-05-18 07:29 | Outpatient (CLI) | payer OTHER, SELFPAY ==
--- OUTSIDE RECORDS SUMMARY | 2025-05-18 07:31 | XMS_ITS | Clinical Summary ---
Author Organization [facility] Address [address] [id number] Care Team Providers Care Application Helper Name Role Phone KelleyAnn-Marie Alonzo OAKLEY Primary Care Provider [phone] Social History Tobacco Use Types Packs/Day Years [...] 2 - 13+ 2-dose series) 08/31/2023 08/03/2023 [id number] Vaccine ( season) 2024 09/25/2021, 12/12/2020, 11/13/2020 [...] patient's age to complete this topic Insurance [facility] Care Teams Application Helper Relationship Specialty Start Date End Date Ann-Marie Kelley APRN [address] [place] [address] PCP - General 12/28/23
[2025-05-19 03:36] LABS: Progesterone 1.7 ng/mL (.)
== END 2025-05-18 23:59 | disposition home or self-care (01) ==
LOC: LAB 07:30
PROVIDERS: PCP Nurse Practitioner Family; Visit Provider Obstetrics & Gynecology
DX: E28.2 Polycystic ovarian syndrome (principal)
CPT/HCPCS: 36415; 84144

== ENCOUNTER 2025-06-21 07:52 | Outpatient (CLI) | payer OTHER, SELFPAY ==
--- OUTSIDE RECORDS SUMMARY | 2025-06-21 07:55 | XMS_ITS | Clinical Summary ---
Author Organization [facility] Address [address] [id number] Care Team Providers Care Online Activist Name Role Phone KelleyAnn-Marie Alonzo OAKLEY Primary Care Provider [phone] Social History Tobacco Use Types Packs/Day Years [...] 2 - 13+ 2-dose series) 08/31/2023 08/03/2023 [id number] Vaccine ( - 2023- season) 2024 09/25/2021, 12/12/2020, 11/13/2020 UKY-Influenza Vaccine (#1) 2025 09/25/2019 [facility]Y-DTaP,Tdap,and Td Vaccines (2 - [...] patient's age to complete this topic Insurance [facility] Care Teams Online Activist Relationship Specialty Start Date End Date Ann-Marie Kelley APRN [address] [place] [address] PCP - General 12/28/23
--- OUTSIDE RECORDS SUMMARY | 2025-06-21 07:55 | XMS_ITS | Clinical Summary ---
[facility] Address [address] [place] [address] Care Team Providers Care Boat Person Name Role Phone Jose Dias MD Primary Care Provider + Social History Tobacco Use Types Packs/Day Years Used Date Smoking Tobacco: Never Assessed Abuse Screen Answer Date Recorded Unsafe at Home or Work/School Not on file Feels Threatened by Someone? Not on file 09/2023 Does Anyone Keep You from Co ntacting Others or Doint Things Outside the Home? Not on file 09/01/2023 Physical Sign of Abuse Present Not on file 1 Housing Stability Answer Date Recorded Current Living Arrangements Not on file 08/22 Potentially Unsafe Housing Conditions Not on mirza e 09/01/2023 Family and Community Support Answer Carlos e Recorded Help with Day-to-Day Activities Not on file 09/01/2023 Lonely or Isolated Not on file 09/01/2023 Employment Answer Date Recorded Do you want help finding or keeping work or a mary ann b? Not on file 09/01/2023 Disabilities Answer Date Recorded Concentrating, Remembering, or Making Decisions Difficulty Not on file 09/01/2023 Doing Errands Independently Difficulty Not on fi le 09/01/2023 Education Answer Date Recorded Help with school or training? Not on file Preferred Language Not on file 09/01/2023 Comments Unknown Sex and Gender Information Value Date Recorded Sex Assigned at Not on file Legal Sex Female 10:15 AM EST Gender Identity Not on file Sexual Orientation Not on file Plan of Treatment Health Maintenance Due Date Last Done Comments ANNUAL PHYSICAL 1992 Annual Gynecologic Pelvic an d Breast Exam 1992 HEPATITIS C SCREENING 1992 COVID-19 Vaccine (1 - 2023-2 5 season) 2024 INFLUENZA VACCINE 08/22/2025 TDAP/TD VACCINES (2 - Td or Tdap) 07/02/2028 018 Pneumococcal Vaccine 0-49 Aged Out No longer eligible based on patient's age to complete this topic Insurance Care Teams Boat Person Relationship Specialty Start Date End Date Jose Dias MD PCP - General Family Medicine 12/11/21
--- OUTSIDE RECORDS SUMMARY | 2025-06-21 07:55 | XMS_ITS | Patient Health Record ---
Author Organization [facility] Address [address] [place] [address] Care Team Providers Care Sleeve Turner Name Role Phone Vira Law [phone] Allergies Allergen (clinical drug ingredient) Drug/Non Drug Allergy documented on EMR Reaction Allergy Type Onset Date Status CODEINE PHOSPHATE (CODEINE PHOSPHATE SOLN) Unspecified Drug Allergy 01/14/2016 Active Reason For Referral No Information Social History Social History Additional Details Category Social Info Options Details Miscellaneous: Caffeine: CAFFEINE USE: 1 Problems Problem Type SNOMED Code ICD Code Onset Dates Problem Status W/U Status Risk Notes Problem Urine test negative (655780528) Encounter for test with result negative (Z32.02) 018 Active confirmed Urine test negative Problem Gynecological examination normal (62615413903472 4) Cervical smear, as part of routine gynecological examination (Z01.419) 018 Active confirmed Annual without abnormal findings Problem Complex cyst of left ovary (23677578782260 109) Complex cyst of left ovary (N83.292) 018 Active confirmed Complex cyst of left ovary Problem Abnormal uterine bleeding (61903635098862 ) Abnormal bleeding in menstrual cycle (N93.9) 017 Active confirmed Abnormal uterine bleeding Problem Female infertility associated with anovulation (895139668) Absence of ovulation (N97.0) 018 Active confirmed Female infertility of anovulatory origin Plan Of Treatment No Information Medical (General) History Medical History History ICD Code PCOS Acid Reflux Depression Frequent Headaches Obesity Urinary Tract Infections Yeast Infections Obesity A Routine MENSTR FLOW: Med ABORTIONS: 0 PROVERA 10 MG ORAL TABLET, ORAL Surgical History Surgery Date(Month/Year) None noted.
[2025-06-25 05:07] LABS: Renin Activity, Plasma 3.512 ng/mL/hr (0.167-5.380)
[2025-06-25 22:09] LABS: Testosterone, Total, LC/MS 17 ng/dL (.)
== END 2025-06-21 23:59 | disposition home or self-care (01) ==
LOC: LAB 07:53
PROVIDERS: PCP Nurse Practitioner Family; Visit Provider Student in an Organized Health Care Education/Training Program
DX: E28.2 Polycystic ovarian syndrome (principal); E27.9 Disorder of adrenal gland, unspecified; Z83.49 Family history of other endocrine, nutritional and metabolic diseases
CPT/HCPCS: 36415; 80299; 82088; 82533; 82627; 83498; 83835; 84244; 84403; 86376

== ENCOUNTER 2025-07-05 13:09 | Outpatient (CLI) | payer OTHER, SELFPAY ==
--- NOTE | 2025-07-05 13:00 | US_ITS ---
FINAL REPORT TECHNIQUE: Real-time grayscale and color ultrasound of the thyroid was performed. CLINICAL HISTORY: multiple thyroid nodules COMPARISON: 04/03/2024 FINDINGS: The thyroid gland volumes measures 7.0 mL on the right and 5.5 mL mm on the left. The isthmus measures 2 mm. The thyroid gland is normal in size.. Nodules: TR 1 cystic nodule right lobe measuring up to 5 mm is unchanged. New rounded 11 mm TR 4 nodule in the left lobe. Adjacent cystic mass laterally measuring 3 mm, previously measured 6 mm. Posterior medial left lobe TR 4 nodule measures up to 7 mm and is unchanged. IMPRESSION: Interval development of 11 mm TR 4 nodule in the left lobe. Although nodules with this appearance are not typically biopsied until they reach 15 mm, since this is new FNA is recommended per TI-RADS criteria. Other lesions with a benign appearance. Reviewed, Interpreted and Dictated by Blanca Sherwood MD Transcribed by Brina Mcneal Authenticated and [facility]
--- OUTSIDE RECORDS SUMMARY | 2025-07-05 13:11 | XMS_ITS | Clinical Summary ---
Author Organization [facility] Address [address] [id number] Care Team Providers Care Shear Operator Name Role Phone KelleyAnn-Marie Alonzo OAKLEY Primary Care Provider [phone] Social History Tobacco Use Types Packs/Day Years [...] [facility]-HIV Screening 1992 [facility]-Hepatitis C Screening 1992 [facility]-/Child/Adol SDOH Screenings 1992 UKY- SDOH Screenings 2010 UKY-Adult SDOH Screenings 2010 UKY-Hepatitis B Vaccines (1 of 3 - 19+ 3-dose series) 2011 UKY-Pap Smear 2013 HPV Vaccines (1 - 3-dose SCDM series) 2019 [facility]Y-Cervical Cancer Screening 2022 UKY-HPV/Cotest 2022 UKY-Varicella Vaccines (2 of 2 - 13+ 2-dose series) 08/31/2023 08/03/2023 [id number] Vaccine (2023- season) 2024 09/25/2021, 12/12/2020, 11/13/2020 UKY-Influenza Vaccine [...] patient's age to complete this topic Insurance [facility] Care Teams Shear Operator Relationship Specialty Start Date End Date Ann-Marie Kelley APRN [address] [place] [address] PCP - General 12/28/23
--- OUTSIDE RECORDS SUMMARY | 2025-07-05 13:11 | XMS_ITS | Clinical Summary ---
[facility] Organization [facility] Address [address] [place] [address] Care Team Providers Care Bit Bender Name Role Phone Jose Dias MD Primary [...] to complete this topic Insurance Care Teams Bit Bender Relationship Specialty Start Date End Date Jose Dias MD PCP - General Family Medicine 12/11/21
== END 2025-07-05 23:59 | disposition home or self-care (01) ==
LOC: RAD 13:10
PROVIDERS: PCP Nurse Practitioner Family; Visit Provider Nurse Practitioner Family
DX: E04.2 Nontoxic multinodular goiter (principal)
CPT/HCPCS: 76536

== ENCOUNTER 2025-08-21 08:17 | Outpatient (CLI) | payer OTHER, SELFPAY ==
--- OUTSIDE RECORDS SUMMARY | 2025-08-21 08:21 | XMS_ITS | Clinical Summary ---
Author Organization [facility] Address [address] [place] [address] Care Team Providers Care Boat Hoist Operator Name Role Phone Ann-Marie Kelley CELE Primary Care Provider [phone] Social History Tobacco Use Types Packs/Day Years Used Date Smoking Tobacco: Never Assessed Comments Unknown Sex and Gender Information Value Date Recorded Sex Assigned at Not on file Legal Sex Female 8:14 AM EST Gender Identity Not on file Sexual Orientation Not on file Plan of Treatment Upcoming Encounters Date Type Department Care Team (Late st Contact Info) Description 10/29/2025 10:30 AM EST Office Visit [facility] Endocrinology [address] [place] [phone] Yonatan Rashid MD [address] [address] Health Maintenance Due Date Last Done Comments [...] 2 - 13+ 2-dose series) 08/31/2023 08/03/2023 [id number] Vaccine ( season) 2025 09/25/2021, 12/12/2020, 11/13/2020 [facility]-Influenza Vaccine (#1) 2025 [...] patient's age to complete this topic Insurance [facility] Care Teams Boat Hoist Operator Relationship Specialty Start Date End Date Ann-Marie Kelley APRN [address] [place] [address] PCP - General 12/28/23
--- OUTSIDE RECORDS SUMMARY | 2025-08-21 08:22 | XMS_ITS | Clinical Summary ---
[facility] Organization [facility] Address [address] [place] [address] Care Team Providers Care Product Managent Intern Name Role Phone Jose Dias MD Primary [...] Breast Exam 1992 HEPATITIS C SCREENING 1992 INFLUENZA VACCINE 06/22/2025 TDAP/TD VACCINES (2 - Td or Tdap) 07/02/2028 018 Pneumococcal Vaccine 0-49 Aged Out No longer eligible based on patient's age to complete this topic Insurance [employer] Care Teams Product Managent Intern Relationship Specialty Start Date End Date Jose Dias MD PCP - General Family Medicine 12/11/21
--- OUTSIDE RECORDS SUMMARY | 2025-08-21 08:22 | XMS_ITS | Patient Health Record ---
Author Organization [facility] Address [address] [place] [address] Care Team Providers Care Superintendent Factory Name Role Phone Vira Law [phone] Allergies Allergen (clinical drug ingredient) Drug/Non Drug [...] Status Risk Notes Problem Urine test negative (524306567) Encounter for test with result negative (Z32.02) 018 Active confirmed Urine test negative Problem Gynecological examination normal (85003724185766 4) Cervical smear, as part of routine gynecological examination (Z01.419) 018 Active confirmed Annual without abnormal findings Problem Complex cyst of left ovary (44373866227592 109) Complex cyst of left ovary (N83.292) 018 Active confirmed Complex cyst of left ovary Problem Abnormal uterine bleeding (19001457698947 ) Abnormal bleeding in menstrual cycle (N93.9) 017 Active confirmed Abnormal uterine bleeding Problem Female infertility associated with anovulation (605691440) Absence of ovulation (N97.0) 018 Active confirmed [...]
[2025-08-21 09:53] LABS: Free T4 (Free Thyroxine) 1.43 ng/dl (0.78-2.19)
[2025-08-21 10:06] LABS: Thyroid Stimulating Hormone 1.82 uIU/mL (0.465-4.68)
== END 2025-08-21 23:59 | disposition home or self-care (01) ==
LOC: LAB 08:18
PROVIDERS: PCP Nurse Practitioner Family; Visit Provider Student in an Organized Health Care Education/Training Program
DX: E04.2 Nontoxic multinodular goiter (principal)
CPT/HCPCS: 36415; 84439; 84443

== ENCOUNTER 2025-09-06 12:37 | Outpatient (CLI) | payer OTHER, SELFPAY ==
--- OUTSIDE RECORDS SUMMARY | 2025-09-06 12:40 | XMS_ITS | Patient Health Record ---
Author Organization [facility] Address [address] [place] [address] Care Team Providers Care Environmental Compliance Technician Name Role Phone Vira Law [phone] Allergies Allergen (clinical drug ingredient) Drug/Non Drug [...] Status Risk Notes Problem Urine test negative (458715450) Encounter for test with result negative (Z32.02) 018 Active confirmed Urine test negative Problem Gynecological examination normal (82297455353689 4) Cervical smear, as part of routine gynecological examination (Z01.419) 018 Active confirmed Annual without abnormal findings Problem Complex cyst of left ovary (20137858685407 109) Complex cyst of left ovary (N83.292) 018 Active confirmed Complex cyst of left ovary Problem Abnormal uterine bleeding (48473221640457 ) Abnormal bleeding in menstrual cycle (N93.9) 017 Active confirmed Abnormal uterine bleeding Problem Female infertility associated with anovulation (935622019) Absence of ovulation (N97.0) 018 Active confirmed [...]
--- OUTSIDE RECORDS SUMMARY | 2025-09-06 12:40 | XMS_ITS | Clinical Summary ---
[facility] Address [address] [place] [address] Care Team Providers Care Armoured Corps Officer Name Role Phone Jose Dias MD Primary [...] complete this topic Insurance [employer] Care Teams [employer]oured [employer] Officer Relationship Specialty Start Date End Date Jose Dias MD PCP - General Family Medicine 12/11/21
--- OUTSIDE RECORDS SUMMARY | 2025-09-06 12:40 | XMS_ITS | Clinical Summary ---
Author Organization [facility] Address [address] [place] [address] Care Team Providers Care Auto Body Repairman Name Role Phone Ann-Marie Kelley CELE Primary Care Provider [phone] Social History Tobacco Use Types Packs/Day Years [...] Description 10/29/2025 10:30 AM EST Office Visit [facility] Endocrinology [address] [place] [phone] Yonatan Rashid MD [address] [address] Health Maintenance Due Date Last Done Comments UKY-Depression Screening 1992 UKY-HIV Screening 1992 [facility]Y-Hepatitis C Screening 1992 [facility]Y-Infant/Child/Adol SDOH Screenings 1992 [facility]Y- SDOH Screenings 2010 UKY-Adult SDOH Screenings 2010 UKY-Hepatitis B Vaccines (1 of 3 - 19+ 3-dose series) 2011 [facility]Y-Pap Smear 2013 HPV Vaccines (1 - 3-dose SCDM series) 2019 [facility]Y-Cervical Cancer Screening 2022 UKY-HPV/Cotest 2022 [facility]Y-Varicella Vaccines (2 of 2 - 13+ 2-dose series) 08/31/2023 08/03/2023 [id number] Vaccine ( season) 2025 09/25/2021, 12/12/2020, 11/13/2020 [...] patient's age to complete this topic Insurance [facility] Care Teams Auto Body Repairman Relationship Specialty Start Date End Date Ann-Marie Kelley APRN [address] [place] [address] PCP - General 12/28/23
[2025-09-11 03:01] LABS: Anti Mullerian Hormone (AMH) 1.25 ng/mL (.)
== END 2025-09-06 23:59 | disposition home or self-care (01) ==
LOC: LAB 12:38
PROVIDERS: PCP Nurse Practitioner Family; Visit Provider Obstetrics & Gynecology
DX: E28.2 Polycystic ovarian syndrome (principal); Z87.42 Personal history of other diseases of the female genital tract
CPT/HCPCS: 36415; 82166

== ENCOUNTER 2025-10-29 07:46 | Outpatient (CLI) | payer OTHER, SELFPAY ==
--- NOTE | 2025-10-29 08:00 | US_ITS ---
FINAL REPORT CLINICAL HISTORY: .LT FNA THYROID JUSTICE ENRIQUE FINDINGS: ULTRASOUND-GUIDED THYROID BIOPSY HISTORY: Left thyroid nodule/mass. PROCEDURE: The procedure, risks and benefits were explained to the patient. Informed and written consent was obtained. Limited sonographic evaluation of thyroid gland was performed to localize the lesion of interest. A 1.1 cm left thyroid lesion was identified. The neck was prepped and draped in the usual sterile manner. The skin was anesthetized with 1% lidocaine. Using a sterile probe cover with sterile, the lesion was visualized and FNA was performed with 25-gauge needle under direct sonographic visualization. Five FNA passes were made. Cytology is pending. Procedure was well tolerated without complication. CONCLUSION: Technically successful thyroid fine needle aspiration. Reviewed, Interpreted and Dictated by Blanca Sherwood MD Transcribed by Breanna Wilhelm PA-C Authenticated and [facility]
== END 2025-10-29 23:59 | disposition home or self-care (01) ==
LOC: RAD 07:46
PROVIDERS: PCP Nurse Practitioner Family; Visit Provider Student in an Organized Health Care Education/Training Program
DX: E04.1 Nontoxic single thyroid nodule (principal)
CPT/HCPCS: 10005

== ENCOUNTER 2025-11-02 10:33 | Day surgery (SDC) | payer OTHER, SELFPAY ==
[2025-11-02 10:40] VITALS: BP 133/86; PULSE 93; RESP 16; O2SAT 98; BMI 38.0
[2025-11-02 11:27] VITALS: BP 133/87; PULSE 84; RESP 18; O2SAT 99
[2025-11-02 11:33] VITALS: BP 133/87; PULSE 83; RESP 18; O2SAT 99
[2025-11-02 11:40] VITALS: BP 126/83; PULSE 91; RESP 16; O2SAT 98
[2025-11-02] MEDS: BUPIVACAINE 0.25% 10ML INJ 25 MG IJ (12:21)
[2025-11-02] MEDS: LIDOCAINE 1% 5ML PF VIAL 5 ML (12:21)
[2025-11-02] MEDS: DEXAMETHASONE 10MG/ML 1ML VIAL 10 MG (12:22)
--- NOTE | 2025-11-02 12:40 | EXP.HP ---
History of Present Illness *Admission Date: 11/02/25 *Reason for visit:: Bilateral TMJ injections *History of present illness: This patient has bilateral temporomandibular joint dysfunction. She presents for bilateral TMJ injections today. [facility] Disclaimer: The information contained in this section may have been updated after the patient was seen, as this information can be updated by other users. Medical History Chronic dysfunction of both eustachian tubes Dysphagia Bilateral otitis media Viral respiratory illness Shortness of breath Abdominal pain Hematuria Flank pain Patient desires History of anemia Endometriosis determined by laparoscopy powder burn endometrial implants found on left uterosacral ligament and posterior cul-de-sac 04/2023 Balanced chromosomal translocation Chronic bilateral lower abdominal pain Abnormal uterine bleeding Foot pain, bilateral Palpitations PCOS (polycystic ovarian syndrome) Otorrhea, bilateral Otitis media Acute otitis media with effusion Depression Anxiety Kidney stone History of gastroesophageal reflux (GERD) Migraine Hypertension History of nephrolithiasis Dr. Fair ESWL May 2021 (left stone) Family history of breast cancer in mother diagnosed ~ age 57 from metastatic breast cancer Surgical History S/P laparoscopy stage 1 endometriosis found on exam 05/17/23 History of lithotripsy History of removal of ovarian cyst H/O cystoscopy History of esophagogastroduodenoscopy (EGD) Family History Mother Breast cancer Father Family history of cardiomyopathy Family history of acute congestive heart failure Family history of diabetes mellitus type II Social History Smoking Status: Never smoker alcohol intake: never substance use type: denies use current occupational status: employed Travel in the last 8 weeks?: Inside the [place] household members: spouse housing: house number of children: 0 current occupation: RN current occupational exposures/hazards: No caffeine: Yes do you feel safe at home: Yes victim of physical abuse: No victim of emotional abuse: No victim of sexual abuse: No Have you lived/traveled outside US in past 30 days?: No Contact w/someone who lives/traveled outside US past 30 days?: No Exposure to someone with infectious disease in past 14 days?: No Do you have a fever (greater than 100.4 F or 38 C)?: No Have you tested positive for COVID-19?: No Exposed to someone with COVID-19 in past 14 days?: No Do you have a sore throat?: No Do you have a cough?: No Do you have any weakness?: No Do you have any diarrhea?: No Are you experiencing any unusual bleeding?: No Do you have any muscle aches/pain?: No Do you have any abdominal pain?: No Are you experiencing loss of taste or smell?: No Other Medical History Have you received the Flu Vaccine for this season: No Have you received the Pneumonia Vaccine: No Review of Systems Review of Systems Review of systems:: pertinent systems reviewed and negative unless documented below Meds Home Medications and Allergies Home Medications ?Medication ?Instructions ?Recorded ?Confirmed ?Type vitamins 30 30 mg iron-10 1 cap PO DAILY 06/20/25 11/02/25 History mg iron-folic acid 1 mg-om3 capsule cholecalciferol (vitamin D3) 250 250 mcg PO WEEKLY 09/27/25 11/02/25 History mcg (10,000 unit) capsule coQ10 (ubiquinol) 100 mg capsule 100 mg PO BID 09/27/25 11/02/25 History (Qunol Reji CoQ10) vitamin K2 100 mcg capsule 100 mcg PO DAILY 09/27/25 11/02/25 History cetirizine 10 mg tablet (All Day 10 mg PO DAILY PRN allergies 10/01/25 11/02/25 History Allergy (cetirizine)) fluticasone propionate 50 1 spray intranasal DAILY 10/01/25 11/02/25 History mcg/actuation nasal spray,suspension (Flonase Allergy Relief) clotrimazole 1 % topical cream 1 applic topical BID 7 days #15 10/15/25 11/02/25 Rx grams New Prescriptions to Start Prescriptions: Allergies Allergy/AdvReac Type Severity Reaction Status Date / Time prochlorperazine (From Allergy Other Verified 11/02/25 10:44 Compazine) Exam Data for Last 24 hours Vital signs and Labs for Last 24 Hours: Pulse Resp BP Pulse Ox O2 Del Method 91 H 16 126/83 98 Room Air 11/02/25 11:40 11/02/25 11:40 11/02/25 11:40 11/02/25 11:40 11/02/25 11:40 I & O for Last 24 hours: Intake & Output 10/31/25 11/01/25 11/02/25 11/03/25 11:59 11:59 11:59 11:59 Weight 250 lb *Routine HEENT Exam Head: Present normocephalic Eye: Present EOMI ENT: Present mucous membranes moist *Routine Respiratory Exam Respiratory: Present CTA bilaterally *Routine Cardiovascular Exam Cardiovascular: Present RRR, Normal S1 and Normal S2 *Routine Abdominal Exam Abdominal: Present soft *Routine Rectal Exam Rectal:: deferred *Routine Genitalia Exam Genitalia:: deferred Assessment and Plan *Assessment and plan (1) TMJ dysfunction: Status: Acute Category: Medical Code(s): M26.609 - Unspecified temporomandibular joint disorder, unspecified side Plan This patient bilateral TMJ injections today.
--- NOTE | 2025-11-02 12:42 | P.PCN_ITS ---
Procedure Date: 11/02/25 Time: 12:42 Anesthesiologist:: Julius Rondon MD Complications:: None Pre-procedure Diagnosis:: Bilateral temporomandibular joint dysfunction Post-procedure Diagnosis:: Same Indications for Procedure:: This patient is a pleasant 35-year-old white female who we are treating for bilateral temporomandibular joint dysfunction. She presents for bilateral TMJ injections today. Procedure Details:: Bilateral TMJ injection Informed consent was obtained risk and benefits of the procedure were explained to the patient. The patient was placed supine on the procedure table. The area anterior to each tragus was prepped with an alcohol prep. We inserted a 25- gauge needle and injected 3 mL lidocaine 1% and dexamethasone 10 mg into each temporomandibular joint starting with the left side followed by the right side. Patient tolerated procedure well with no complications. Plan and Disposition:: Will follow-up with this patient in 1 week. Will reevaluate symptoms at that time
== END 2025-11-02 11:40 | disposition home or self-care (01) ==
LOC: SC.PAINP 10:34
PROVIDERS: PCP Nurse Practitioner Family; Visit Provider Anesthesiology
DX: M26.603 Bilateral temporomandibular joint disorder, unspecified (principal); F41.9 Anxiety disorder, unspecified; F32.A Depression, unspecified; K21.9 Gastro-esophageal reflux disease without esophagitis; Z87.442 Personal history of urinary calculi; I10 Essential (primary) hypertension; G43.909 Migraine, unspecified, not intractable, without status migrainosus; E28.2 Polycystic ovarian syndrome; Z88.1 Allergy status to other antibiotic agents; M26.601 Right temporomandibular joint disorder, unspecified
CPT/HCPCS: 20605; J0665; J1100; J2003

== ENCOUNTER 2025-11-05 14:10 | Outpatient (CLI) | payer OTHER, SELFPAY ==
[2025-11-06 00:35] LABS: Microscopic, Urine URINE MICROSCOPIC (MICROSCOPIC)
[2025-11-06 03:10] LABS: Bilirubin,Urine Negative (Negative); Color,Urine YELLOW (Yellow); Glucose,Urine (UA) Negative (Negative); Ketones,Urine Negative (Negative); Leukocyte Esterase,Urine 1+ (Negative); PH,Urine 6.0 (5.0-8.5); Protein,Urine Negative (Negative); Specific Gravity, Urine 1.025 (1.005-1.030); Urobilinogen,Urine 0.2 EU/dl (0.2)
[2025-11-06 04:41] LABS: Bacteria,Urine 1+ /lpf
[2025-11-06 04:42] LABS: Calcium Oxalate Crystals,Urine 1+ /lpf
--- OUTSIDE RECORDS SUMMARY | 2025-11-07 12:31 | XMS_ITS | Clinical Summary ---
Author Organization [facility] Address [address] [id number] Care Team Providers Care Code Enforcement Supervisor Name Role Phone KelleyAnn-Marie Alonzo OAKLEY Primary Care Provider [phone] Social History Tobacco Use Types Packs/Day Years [...] 2 - 13+ 2-dose series) 08/31/2023 08/03/2023 [id number] Vaccine ( season) 2025 09/25/2021, 12/12/2020, 11/13/2020 [facility]-Influenza Vaccine (#1) 2025 09/25/2019 UKY-DTaP,Tdap,and Td Vaccines (2 - Td or Tdap) 07/02/2028 07/02/2018 UKY-Zoster Vaccines (1 of 2) 2042 08/03/2023 UKY-Hepatitis A Vaccines Aged Out 11/08/2018 No longer eligible based on patient's age to complete this topic HPV Vaccines (No Doses Required) Completed UKY-HIB Vaccines Aged Out No longer e [...] patient's age to complete this topic Insurance [facility] Care Teams Code Enforcement Supervisor Relationship Specialty Start Date End Date Ann-Marie Kelley APRN [address] [place] [address] PCP - General 12/28/23
--- OUTSIDE RECORDS SUMMARY | 2025-11-07 12:31 | XMS_ITS | Clinical Summary ---
[facility] Address [address] [place] [id number] Care Team Providers Care Dial Brusher Name Role Phone Jose Dias MD Primary [...] complete this topic Insurance [employer] Care Teams Dial Brusher Relationship Specialty Start Date End Date Jose Dias MD PCP - General Family Medicine 12/11/21
== END 2025-11-05 23:59 | disposition home or self-care (01) ==
LOC: LAB.DROPOF 11-07 10:54
PROVIDERS: PCP Nurse Practitioner Family; Visit Provider Nurse Practitioner Family
DX: N32.89 Other specified disorders of bladder (principal)
CPT/HCPCS: 81001; 87077; 87086